=== PATIENT | male | born 1995 | race Caucasian/White ===

== ENCOUNTER 2017-09-13 23:58 | Emergency (ER) | payer MEDICAID, SELFPAY ==
[2017-09-14 00:17] VITALS: BP 122/76; PULSE 106; RESP 16; TEMP 36.8; O2SAT 99
[2017-09-14 00:21] VITALS: RESP 21
--- NOTE | 2017-09-14 00:27 | ED.GENADUL ---
Disposition Clinical Impression: Heroin overdose Disposition: HOME Condition: Stable Instructions: Narcotic Abuse (ED) Prescriptions: Naloxone HCl [Narcan Nasal [place]] 4 mg NS DIRECTED #2 spray Medical Decision Making - Medical Decision Making Given how quick patient came to after narcan and is at baseline now doubt he was actually in cardiac arrest. Will monitor to see if he requires additional narcan pt has remained stable not requiring any narcan, will d/c home. List of drug treatment programs given to him and family - Differential Diagnosis opiate overdose, respiratory arrest History of Present Illness - General Chief complaint: OD/Poison Stated complaint: CALEX Time Seen by Provider: 09/14/17 00:02 Source: patient Mode of arrival: EMS Limitations: no limitations - History of Present Illness Initial comments: 21 yo male with hx of substance abuse who states he was clean from opiates for months who comes in with overdose. He used IV heroin tonight and became unrepsonsive. HIs family found him and thought he was in cardiac arrest, was given narcan and he came to. He arrives caox4 and only complaint is mild central chest pain where compressions were done. bedside u/s shows normal cardiac function without pericardial effusion and no evidence of ptx on u/s as well. Denies other drug use MD Complaint: overdose Onset/Timin -: hour(s) Improves with: none Worsens with: none - Related Data Bupropion HCl [Wellbutrin Sr] 150 mg PO BID #60 tab-cap 09/12/17 Naloxone HCl [Narcan Nasal [place]] 4 mg NS DIRECTED #2 spray 09/14/17 Allergies Allergy/AdvReac Type Severity Reaction Status Date / Time No Known Allergies Allergy Unverified 09/14/17 00:21 Review of Systems Constitutional: denies: fever Respiratory: denies: shortness of breath Cardiovascular: denies: palpitations, dyspnea on exertion Gastrointestinal: denies: abdominal pain, nausea, vomiting Neurological: denies: headache Comment: All other systems reviewed and negative Past Medical History - Past Medical History Medical history: no medical history Surgical history: no surgical history - Social History Alcohol use: none Drug use: opiates, marijuana General Exam - General Limitations: no limitations General appearance: alert, in no apparent distress - Head Head exam: Present: atraumatic, normocephalic - Eye Eye exam: Present: normal apperance - ENT ENT exam: Present: mucous membranes moist - Neck Neck exam: Present: normal inspection - Respiratory Respiratory exam: Present: normal lung sounds bilaterally, chest wall tenderness. Absent: respiratory distress - Cardiovascular Cardiovascular Exam: Present: regular rate, normal rhythm, normal heart sounds - GI/Abdominal GI/Abdominal exam: Present: soft. Absent: distended, tenderness, guarding - Extremities Exam Extremities exam: Present: normal inspection. Absent: pedal edema, calf tenderness - Neurological Exam Neurological exam: Present: alert, oriented X3 - Psychiatric Psychiatric exam: Present: flat affect. Absent: homicidal ideation, suicidal ideation - Skin Skin exam: Present: warm Course Vital Signs - 24 hr 09/14/17 09/14/17 00:17 00:21 Temperature 98.2 F Pulse 106 H Respiratory 16 21 Rate Blood Pressure 122/76 Pulse Oximetry 99
--- NOTE | 2017-09-14 08:53 | PDOC.ERCMPRO ---
Care Management Progress Note 09/14-Matt's grandmother Kalyn Ibarra called this am requesting assistance with a referral to [place]. Kalyn stated she called [place] this am and was told that [facility] needed to send a referral. Explained to Kalyn that this CM would need to call [place] as this is not the normal procedure for referrals. Called [place] and spoke with Radha. Radha stated that she had spoken with Kalyn and explained to her that Matt needed to be screened by [facility] and that [facility] would assist with the referral. Called Kalyn back, left a general voicemail asking she call this CM back for update. No personal information left on voicemail.
--- NOTE | 2017-09-14 08:55 | CMPROGNOTE_ITS ---
Care Management Progress Note 09/14-Matt's grandmother Kalyn Ibarra called this am requesting assistance with a referral to [facility]. Kalyn stated she called [facility] this am and was told that [facility] needed to send a referral. Explained to Kalyn that this CM would need to call [facility] as this is not the normal procedure for referrals. Called [facility] and spoke with Radha. Radha stated that she had spoken with Kalyn and explained to her that Matt needed to be screened by [facility] and that [facility] would assist with the referral. Called Kalyn back, left a general voicemail asking she call this CM back for update. No personal information left on voicemail.
== END 2017-09-14 01:07 | disposition home or self-care (01) ==
PROVIDERS: Emergency Provider Emergency Medicine
DX: T40.1X1A Poisoning by heroin, accidental (unintentional), initial encounter (principal); F11.10 Opioid abuse, uncomplicated
CPT/HCPCS: 99284; 99283

== ENCOUNTER 2017-12-04 17:57 | Emergency (ER) | payer OTHER, SELFPAY ==
--- NOTE | 2017-12-04 18:05 | W.ED.GENAD ---
Discharge Plan Disposition Patient Disposition: HOME Condition: Improving Discharge Details Chief Complaint: EyeProblem Clinical Impression: Chemical exposure of eye Primary Care Provider: Maite Reich ED Provider: Zeus Berry Home Meds and New Rx's Prescriptions: No Action bupropion HCl [Wellbutrin SR] 150 mg tablet extended release 12 hr 150 mg PO BID Qty: 60 RF: 3 naloxone [Narcan] 4 MG spray,non-aerosol 4 mg NS DIRECTED Qty: 2 RF: 0 Discharge Instructions Instructions: Corneal Abrasion (ED) Additional Instructions: Return immediately to the emergency department if you have any new or significant worsening of eye pain, vision loss or change, or any further concerns. Otherwise call the ophthalmology office tomorrow for close follow-up and reassessment of your eye. Referrals: [facility] [Outside] - 1 day (Please call the office tomorrow morning for arrangement of follow-up.) Medical Decision Making Patient presenting to the emergency department with chief complaint of right eye pain due to cleansing liquid getting into his eye. Patient states he was opening up a bottle that was labeled as corrosive and when he did this approximately 2 small drops of liquid splashed into his right eye. Patient denies any other injury or trauma and states he does not wear contact lenses. Patient is holding his right eye making it fully difficult to examine initially but what is visualized briefly appears appropriate. Tetracaine was placed into right eye and Tim lens was inserted and saline fluid started to irrigate possible chemical exposure. Also due to pain patient was given 150 mg tramadol Did speak with poison control who gave recommendation for patient to receive copious irrigation and full assessment when appropriate. PH was checked in right eye after 3 L of irrigation lasting approximately 1 hour. PH still appeared closer to pH of 8 so further irrigation was performed. Patient reassessed at 4 L showed slight improvement of pH and reassessed after 5 L of irrigation and showed what appeared to be normal pH. Fluoroscein stain and slit lamp examination was performed and no dye uptake was noted in no acute abnormalities were noted on examination. Patient placed on erythromycin ointment and encouraged to return immediately for any new or worsening symptoms especially due to alkaline nature of chemical otherwise patient placed upon primary care list for [facility]. Patient stated no pain or discomfort and had normal visual acuity on examination. Given this I feel the patient is able to be safely discharged and he seems understanding to return for worsening symptoms. After discussion of diagnosis and plan of care patient has no further needs, questions, or concerns and states clear understanding to return to the emergency department for any worsening symptoms. HPI General Mode of arrival: ambulatory. Date/Time Provider Initiated Documentation: 12/04/17 18:04. Limitations to Documentation: no limitations. Information obtained by: patient and RN notes reviewed. History of Present Illness 22 year old M presents to the emergency department with the chief complaint of right eye injury, described as moderate, with intensity rated at 7. Quality is described as burning, and is localized to the right. Patient started experiencing this minute(s) (15) and it has been constant. Patient notes no other symptoms.. Patient did receive the following treatments prior to arrival, none Related Data Home Medications Medication Instructions Recorded Confirmed naloxone [Narcan Nasal [place]] 4 mg NS DIRECTED #2 spray 09/14/17 12/04/17 bupropion HCl SR 150 mg tablet,12 150 mg PO BID #60 tab-cap 11/05/17 12/04/17 hr sustained-release Previous Rx's Medication Instructions Recorded naloxone [Narcan Nasal [place]] 4 mg NS DIRECTED #2 spray 09/14/17 bupropion HCl SR 150 mg tablet,12 150 mg PO BID #60 tab-cap 11/05/17 hr sustained-release Allergies Allergy/AdvReac Type Severity Reaction Status Date / Time No Known Allergies Allergy Unverified 12/04/17 18:12 Review of Systems Constitutional Denies headache(s) Eyes Reports as per HPI, Reports blurry vision and Reports eye pain ENT Denies dizziness and Denies headache(s) Cardiovascular Denies syncope Neurologic Denies abnormal movements, Denies dizziness, Denies syncope and Denies headache(s) PFSH Family History Mother Depression Grandfather Depression Heart disease Grandfather No problems noted. Grandmother Hyperlipidemia Grandmother Personal history of malignant neoplasm Social History Smoking/Tobacco Use Status: Current every day tobacco type: cigarettes substance use type: marijuana seatbelt use: always Exam Const General: cooperative, healthy appearing and acute distress moderate; not respiratory Orientation: alert, awake and oriented x3 Limitations: mental status not altered HENMT Head: normal to inspection, normocephalic and atraumatic Ears: hearing grossly normal bilaterally General nose exam: external nose normal Face and sinus: normal facial exam Mouth: oral mucosae normal Eyes Visual Quick: normal visual quick by confrontation Alignment and Position: alignment normal Periorbital: periorbital findings normal Conjunctivae: conjunctivae normal Sclera: sclerae normal Cornea: corneas normal Pupils: PERRL EOM: EOM intact bilaterally Direct ophthalmoscopy: normal light reflex, consensual photophobia, anterior chamber normal and photophobia Neck Neck: normal visual inspection and full ROM Resp Effort & Inspection: normal respiratory effort, able to speak in complete sentences and no stridor
[2017-12-04 18:09] VITALS: BP 125/86; PULSE 83; RESP 20; TEMP 36.6; O2SAT 98
--- NOTE | 2017-12-04 18:09 | ED.GENADUL_ITS ---
Discharge Plan Disposition Patient Disposition: HOME Condition: Improving Discharge Details Chief Complaint: EyeProblem Clinical Impression: Chemical exposure of eye Primary Care Provider: Maite Reich ED Provider: Zeus Berry Home Meds and New Rx's Prescriptions: No Action bupropion HCl [Wellbutrin SR] 150 mg tablet extended release 12 hr 150 mg PO BID Qty: 60 RF: 3 naloxone [Narcan] 4 MG spray,non-aerosol 4 mg NS DIRECTED Qty: 2 RF: 0 Discharge Instructions Instructions: Corneal Abrasion (ED) Additional Instructions: Return immediately to the emergency department if you have any new or significant worsening of eye pain, vision loss or change, or any further concerns. Otherwise call the ophthalmology office tomorrow for close follow-up and reassessment of your eye. Referrals: [facility] [Outside] - 1 day (Please call the office tomorrow morning for arrangement of follow-up.) Medical Decision Making Patient presenting to the emergency department with chief complaint of right eye pain due to cleansing liquid getting into his eye. Patient states he was opening up a bottle that was labeled as corrosive and when he did this approximately 2 small drops of liquid splashed into his right eye. Patient denies any other injury or trauma and states he does not wear contact lenses. Patient is holding his right eye making it fully difficult to examine initially but what is visualized briefly appears appropriate. Tetracaine was placed into right eye and Tim lens was inserted and saline fluid started to irrigate possible chemical exposure. Also due to pain patient was given 150 mg tramadol Did speak with poison control who gave recommendation for patient to receive copious irrigation and full assessment when appropriate. PH was checked in right eye after 3 L of irrigation lasting approximately 1 hour. PH still appeared closer to pH of 8 so further irrigation was performed. Patient reassessed at 4 L showed slight improvement of pH and reassessed after 5 L of irrigation and showed what appeared to be normal pH. Fluoroscein stain and slit lamp examination was performed and no dye uptake was noted in no acute abnormalities were noted on examination. Patient placed on erythromycin ointment and encouraged to return immediately for any new or worsening symptoms especially due to alkaline nature of chemical otherwise patient placed upon primary care list for a [facility]. Patient stated no pain or discomfort and had normal visual acuity on examination. Given this I feel the patient is able to be safely discharged and he seems understanding to return for worsening symptoms. After discussion of diagnosis and plan of care patient has no further needs, questions, or concerns and states clear understanding to return to the emergency department for any worsening symptoms. HPI General Mode of arrival: ambulatory . Date/Time Provider Initiated Documentation: 12/04/17 18:04 . Limitations to Documentation: no limitations . Information obtained by: patient and RN notes reviewed . History of Present Illness 22 year old M presents to the emergency department with the chief complaint of right eye injury, described as moderate, with intensity rated at 7. Quality is described as burning, and is localized to the right. Patient started experiencing this minute(s) (15) and it has been constant. Patient notes no other symptoms.. Patient did receive the following treatments prior to arrival, none Related Data Home Medications Medication Instructions Recorded Confirmed naloxone [Narcan Nasal [place]] 4 mg NS DIRECTED #2 spray 09/14/17 12/04/17 bupropion HCl SR 150 mg tablet,12 150 mg PO BID #60 tab-cap 11/05/17 12/04/17 hr sustained-release Previous Rx's Medication Instructions Recorded naloxone [Narcan Nasal [place]] 4 mg NS DIRECTED #2 spray 09/14/17 bupropion HCl SR 150 mg tablet,12 150 mg PO BID #60 tab-cap 11/05/17 hr sustained-release Allergies Allergy/AdvReac Type Severity Reaction Status Date / Time No Known Allergies Allergy Unverified 12/04/17 18:12 Review of Systems Constitutional Denies headache(s) Eyes Reports as per HPI, Reports blurry vision and Reports eye pain ENT Denies dizziness and Denies headache(s) Cardiovascular Denies syncope Neurologic Denies abnormal movements, Denies dizziness, Denies syncope and Denies headache( s) PFSH Family History Mother Depression Grandfather Depression Heart disease Grandfather No problems noted. Grandmother Hyperlipidemia Grandmother Personal history of malignant neoplasm Social History Smoking/Tobacco Use Status: Current every day tobacco type: cigarettes substance use type: marijuana seatbelt use: always Exam Const General: cooperative, healthy appearing and acute distress moderate; not respiratory Orientation: alert, awake and oriented x3 Limitations: mental status not altered HENMT Head: normal to inspection, normocephalic and atraumatic Ears: hearing grossly normal bilaterally General nose exam: external nose normal Face and sinus: normal facial exam Mouth: oral mucosae normal Eyes Visual Quick: normal visual quick by confrontation Alignment and Position: alignment normal Periorbital: periorbital findings normal Conjunctivae: conjunctivae normal Sclera: sclerae normal Cornea: corneas normal Pupils: PERRL EOM: EOM intact bilaterally Direct ophthalmoscopy: normal light reflex, consensual photophobia, anterior chamber normal and photophobia Neck Neck: normal visual inspection and full ROM Resp Effort & Inspection: normal respiratory effort, able to speak in complete sentences and no stridor
[2017-12-04] MEDS: Tetracaine 0.5% 4 ML BTL (18:14)
[2017-12-04] MEDS: traMADol 50 MG TAB PO (18:18)
[2017-12-04] MEDS: Erythromycin Ophth Oint 3.5 GM TUBE OD (21:33)
--- NOTE | 2017-12-05 08:02 | CMPROGNOTE_ITS ---
Care Management Progress Note 12/05-Gadiel SONG requested assistance with a [facility] f/u on 12/05 for chemical exposure to right eye. Referral, demographics, and provider note faxed to Lucius wolf am.
== END 2017-12-04 21:42 | disposition home or self-care (01) ==
PROVIDERS: Emergency Provider Nurse Practitioner Family
DX: T26.61XA Corrosion of cornea and conjunctival sac, right eye, initial encounter (principal); X58.XXXA Exposure to other specified factors, initial encounter
CPT/HCPCS: 99284

== ENCOUNTER 2017-12-31 17:21 | Emergency (ER) | payer MEDICAID, SELFPAY ==
--- NOTE | 2017-12-31 17:27 | NUR.NOTE ---
pt to the lobby requesting help , when nurse went to get the pt he stated that he I dont need help, my friend does , she is in the car alyce got up and walked out of the lobby. a sober adult met him at the door and stated that the girl in the car no longer needed help. he stated that he was in charge of the pt and they all drove off Nursing Note:
== END 2017-12-31 17:30 | disposition left before discharge ==
LOC: ER 17:57
DX: Z53.21 Procedure and treatment not carried out due to patient leaving prior to being seen by health care provider (principal)

== ENCOUNTER 2018-02-13 15:38 | Outpatient (CLI) | payer MEDICAID, SELFPAY ==
[2018-02-13 17:16] LABS: ALT 255 U/L (12-78); AST 68 U/L (15-37); Albumin 4.7 g/dL (3.4-5.0); Alkaline Phosphatase 50 U/L (46-116); Anion Gap 9.6 mmol/L (3-11); BUN 17 mg/dL (7-18); CO2 28.4 mmol/L (21.0-32.0); CREATININE 1.14 mg/dL (0.70-1.30); Chloride 102 mmol/L (98-107); Glucose 118 mg/dL (70-100); Sodium 140 mmol/L (136-145); Total Protein 8.4 g/dL (6.4-8.2)
[2018-02-15 10:12] LABS: HIV-1/2 Ag & Ab Screen Negative (NEGAT)
[2018-02-15 15:10] LABS: Hepatitis A Antibody IgM Negative (NEGAT); Hepatitis B Core Antibody Negative (NEGAT); Hepatitis B surface Ag Negative (NEGAT); Hepatitis C Ab w Rflx HCV PCR Reactive (NEGAT)
[2018-02-15 15:35] LABS: Syphilis IgG Ab w/Reflex Negative (Negative)
== END 2018-02-13 15:58 ==
PROVIDERS: Visit Provider Nurse Practitioner Family
DX: F41.8 Other specified anxiety disorders (principal); Z11.4 Encounter for screening for human immunodeficiency virus [HIV]; Z20.5 Contact with and (suspected) exposure to viral hepatitis
CPT/HCPCS: 36415; 80053; 86704; 86709; 86803; 87340; 87389; 86780; 87522

== ENCOUNTER 2018-11-06 01:47 | Emergency (ER) | payer MEDICAID, SELFPAY ==
[2018-11-06 01:51] VITALS: BP 129/84; PULSE 93; RESP 18; TEMP 36.7; O2SAT 99
--- NOTE | 2018-11-06 02:09 | ED.GENADUL_ITS ---
Discharge Plan Disposition Patient Disposition: HOME Discharge Details Chief Complaint: RashLesion Clinical Impression: Acute abscess Primary Care Provider: Kaia Nolasco ED Provider: Gilson Alonso Home Meds and New Rx's Prescriptions: New sulfamethoxazole-trimethoprim [Bactrim DS] 800-160 mg tablet 1 tab PO BID Qty: 14 RF: 0 Continued bupropion HCl [Wellbutrin XL] 300 mg tablet extended release 24 hr 300 mg PO QAM Qty: 90 RF: 2 Narcan 4 mg/actuation spray,non-aerosol 4 mg NS DIRECTED Qty: 2 RF: 0 Discharge Instructions Instructions: Abscess (ED) Additional Instructions: Please take full course of antibiotic as prescribed. Please contact your primary care physician to arrange follow-up. Return to the ER for any worsening or new concerning symptoms. Referrals: Kaia Nolasco, [employer] [Primary Care Provider] - Medical Decision Making 23-year-old male IV drug user here with abscess right antecubital fossa. Bedside [id number] ultrasound of the area confirms superficial abscess. Questionable small hyperechoic foreign body in subcutaneous tissue. X-ray of the elbow was reviewed and interpreted by me: No foreign body. Topical let was applied to the right AC and incision and drainage performed without complication after verbal informed consent. Please see procedure note. Plan to cover the patient with Bactrim. Warm soaks were advised. Usual customary discharge instructions were provided. Patient understands importance of timely outpatient follow-up. HPI General Mode of arrival: ambulatory . Date/Time Provider Initiated Documentation: 11/06/18 02:08 . Limitations to Documentation: no limitations . Information obtained by: patient . HPI Narrative: 23-year-old male IV drug user, here with concern for abscess right antecubital fossa. Patient notes he injected heroin into the area about a week ago and subsequently developed worsening swelling. He denies associated redness. No associated fever. Area of swelling is tender to palpation. Related Data Home Medications Medication Instructions Recorded Confirmed bupropion HCl 300 mg 24 hr tablet, 300 mg PO QAM #90 tab 12/17/17 11/06/18 extended release naloxone 4 mg/actuation nasal spray 4 mg NS DIRECTED #2 spray 12/17/17 11/06/18 sulfamethoxazole-trimethoprim 1 tab PO BID #14 tab 11/06/18 [Bactrim DS] Previous Rx's Medication Instructions Recorded bupropion HCl 300 mg 24 hr tablet, 300 mg PO QAM #90 tab 12/17/17 extended release naloxone 4 mg/actuation nasal spray 4 mg NS DIRECTED #2 spray 12/17/17 sulfamethoxazole-trimethoprim 1 tab PO BID #14 tab 11/06/18 [Bactrim DS] Allergies Allergy/AdvReac Type Severity Reaction Status Date / Time No Known Allergies Allergy Verified 11/06/18 01:58 General Stated Complaint: RashLesion MARTÍN: 3 Review of Systems Constitutional Constitutional: Denies fever(s) Musculoskeletal Musculoskeletal: Denies arthralgias Integumentary/Breasts Skin/Breast: Reports as per HPI [facility] Medical History Accidental overdose of heroin (Inactive 09/24/17) Hepatitis C virus infection (Acute ~02/2018) Family History Mother Depression Grandfather Depression Heart disease Grandfather No problems noted. Grandmother Hyperlipidemia Grandmother Personal history of malignant neoplasm PANCREATIC Social History Smoking/Tobacco Use Status: Current every day Tobacco Type: cigarettes Alcohol Intake: current Alcohol Intake frequency: a few times a month Drug use: Daily Substance use type: marijuana Details: heroin and crack IV What type of physical activity do you participate in: none Seatbelt use: always Do you feel safe in your relationship?: Yes Exam Const General: cooperative and no acute distress HENMT Mouth: moist mucous membranes Eyes Conjunctivae: normal conjunctivae Sclera: normal sclerae Cardio Rate: regular rate and not tachycardic Rhythm: regular rhythm Skin Lesions: other (2 cm superficial abscess right antecubital fossa with mild erythema) Extrem General: no edema Right upper extremity: elbow/forearm Details: normal ROM, distal pulses intact and other (No joint swelling) Course Vital Signs Vital signs: Vital Signs Temperature 36.7 C 11/06/18 01:51 Pulse 93 H 11/06/18 01:51 Respiratory Rate 18 11/06/18 01:51 Blood Pressure 129/84 11/06/18 01:51 Pulse Oximetry 99 11/06/18 01:51 Temperature 36.7 C 11/06/18 01:51 Temperature Source Skin 11/06/18 01:51 Pulse 93 H 11/06/18 01:51 Respiratory Rate 18 11/06/18 01:51 Respiratory Effort 11/06/18 02:02 Blood Pressure 129/84 11/06/18 01:51 Blood Pressure Position Sitting 11/06/18 01:51 Pulse Oximetry 99 11/06/18 01:51 Oxygen Delivery Method Room Air 11/06/18 01:51 Oxygen Flow Rate 0 11/06/18 01:51 Pain Level 0 11/06/18 01:51 Procedures Abscess I/D Site: Upper Extremity Side (if applicable): Right Local Anesthetic: Other Anesthetic (LET) Amount of anesthesia used (mL): 2 Technique: Incised with #11 Blade Amount of fluid expressed (mL): 1 Irrigation: Yes Packing used?: None Complications: Other (none)
[2018-11-06] MEDS: Lidocaine/Epinephri/Tetracaine Topical Gel 3 ML TP (02:19)
[2018-11-06] MEDS: Sulfameth/Trimeth DS TAB 1 TAB PO (02:19)
--- NOTE | 2018-11-06 02:25 | DI.RAD_ITS ---
EXAM: XR ELBOW RT LIMITED INDICATION: abscess, iv drug use, ? fb, pain. COMPARISON: No exams were available for comparison TECHNIQUE: 2D digital imaging was performed. FINDINGS: No bone or joint abnormality is identified. There is soft tissue swelling about the elbow medially. No radiopaque foreign bodies are present. IMPRESSION: No acute fracture or dislocation. No radiopaque foreign body. Soft tissue swelling medially.
--- NOTE | 2018-11-06 02:54 | DI.VRAD_ITS ---
PROCEDURE INFORMATION: Exam: XR Right Elbow Exam date and time: 11/06/2018 2:09 AM Clinical history: 23 years old, male; Pain; Elbow; Right; Patient HX: Abscess, iv drug use, ? fb TECHNIQUE: Imaging protocol: XR Right elbow. Views: 1 or 2 views. COMPARISON: No relevant prior studies available. FINDINGS: Bones/joints: Bone mineralization is age-appropriate. There is no evidence of fracture. No evidence of dislocation. The joint spaces are adequately preserved; no significant degenerative narrowing and no bony erosion seen. Soft tissues: Edema and soft tissue swelling seen along the medial aspect of the right distal brachial region and at the elbow. No radiopaque foreign body present. IMPRESSION: 1. No acute osseous abnormality. 2. Edema and soft tissue swelling seen along the medial aspect of the right distal brachial region and at the elbow. Dictated and Authenticated by: Santos Mello MD. Ordering:ROSEANNA Riggins MD
== END 2018-11-06 03:12 | disposition home or self-care (01) ==
PROVIDERS: Emergency Provider Student in an Organized Health Care Education/Training Program; PCP Nurse Practitioner Family
DX: L02.415 Cutaneous abscess of right lower limb (principal)
CPT/HCPCS: 10060; 99283; 73070

== ENCOUNTER 2019-04-03 22:30 | Outpatient (REF) | payer MEDICAID, SELFPAY ==
[2019-04-03 21:10] LABS: Prothrombin Time 10.3 sec (9.3-11.0)
[2019-04-03 21:17] LABS: HCT 47.4 % (40.0-50.0); HGB 16.1 g/dL (13.5-17.5); Mean Corpuscular Hemoglobin 31.2 pg (27.0-33.0); Mean Corpuscular Volume 91.9 fL (80-95); Mean Platelet Volume 11.2 fL (8.0-11.0); Platelet Count 326 x1000/uL (130-400); RBC 5.16 m/cumm (4.50-6.00); RBC Distribution Width 14.4 % (11.8-14.1); White Blood Cell Count 10.28 k/cumm (4.4-10.8)
[2019-04-03 21:28] LABS: ALT 134 U/L (16-63); AST 68 U/L (15-37); Albumin 4.6 g/dL (3.4-5.0); Alkaline Phosphatase 58 U/L (46-116); BUN 19 mg/dL (7-18); Bilirubin, Total 0.6 mg/dL (0.2-1.0); CREATININE 0.84 mg/dL (0.70-1.30); Calcium 9.8 mg/dL (8.5-10.1); Chloride 102 mmol/L (98-107); Glucose 88 mg/dL (74-106); Potassium 4.2 mmol/L (3.5-5.1); Sodium 140 mmol/L (136-145); Total Protein 8.1 g/dL (6.4-8.2)
[2019-04-07 09:55] LABS: HBs Antibody, Quant <3.1 mIU/mL (See Note); Hepatitis B Surface Ab Negative (See Note)
[2019-04-07 11:48] LABS: Hep A Total Ab w Rflx IgM Negative (Negative); Hepatitis C Ab w Rflx HCV PCR Reactive (Negative)
== END 2019-04-03 22:50 ==
LOC: NCHCN 22:30
PROVIDERS: Visit Provider Nurse Practitioner Family
DX: Z11.59 Encounter for screening for other viral diseases (principal); Z87.898 Personal history of other specified conditions
CPT/HCPCS: 80053; 85027; 86706; 86709; 86803; 85610; 87522

== ENCOUNTER 2019-06-05 15:43 | Emergency (ER) | payer MEDICAID, SELFPAY ==
[2019-06-05 15:47] VITALS: BP 138/75; PULSE 67; RESP 14; TEMP 36.8; O2SAT 95
--- NOTE | 2019-06-05 16:22 | ED.GENADUL_ITS ---
Discharge Plan Disposition Patient Disposition: HOME Condition: Stable Discharge Details Chief Complaint: Nausea/Vomit/Diar Clinical Impression: Viral gastroenteritis Primary Care Provider: Venice Ortiz ED Provider: Lien Espitia Home Meds and New Rx's Prescriptions: No Action Narcan 4 mg/actuation spray,non-aerosol 4 mg NS DIRECTED Qty: 2 RF: 0 Vivitrol 380 mg Suspension,Extended Rel Recon See Rx Instructions .ROUTE .COMPLEX RF: 0 Discharge Instructions Instructions: Gastroenteritis (ED) Additional Instructions: Drink plenty of fluids. Rest activities as tolerated. Observe for any signs of dehydration. Observe for any signs of return of symptoms. Limit dairy, acidic or spicy foods initially as discussed. Wash hands and any recently touched items in your home including bathrooms to avoid any spread of germs. Return for any worsening, concerning or alarming symptoms as discussed Stand Alone Forms: Work Release Medical Decision Making Is a 23-year-old patient presenting to the emergency room reporting resolved nausea vomiting diarrhea and abdominal pain. Patient reports 2 days of nausea vomiting and diarrhea. Reports he awoke in the morning with symptoms. Patient reports vomited approximately 5 times and had about 5 episodes of diarrhea on day 1, improved to approximately 3 times daily on day 2 and awoke this morning vomited x1 and symptoms fully resolved. Abdominal pain resolved yesterday. Patient denies any blood in bowel movements or in vomitus. Denies headache or dizziness. Patient reports he has been able to eat and drink throughout the day today. Patient is urinating normal amounts. Does not feel dehydrated at this time. Patient is seeking a return to work note as he did not feel comfortable working with the symptoms. Employer is requesting evaluation prior to return. Patient works in a distribution center. Patient denies any upper respiratory symptoms, cough, shortness of breath, wheezing. Patient's vital signs reviewed and stable. Patient's physical exam at this time is entirely benign. Patient has no persistent abdominal symptoms. Does not feel he needs labs or IV at this time. Feels comfortable discharge home with work note alone. Patient encouraged return for any worsening or concerns. Patient reports his un derstanding. The patient was stable and requested discharge. Prior to discharge, my usual and customary return precautions were reviewed with the patient - this included follow-up instructions and reasons to return to the Emergency Department if conditions worsens, does not improve as expected, or other new concerns arise. HPI General Date/Time Provider Initiated Documentation: 06/05/19 15:58 . HPI Narrative: This is a 23-year-old very pleasant patient presenting to the emergency room for complaints of nausea vomiting and diarrhea which began 2 mornings ago. Patient reports he awoke abruptly with vomiting, describes crampy abdominal discomfort which is intermittent. Patient reports diarrhea associated. Patient reports approximately 5 episodes of vomiting and diarrhea on day 1, was able to sleep on day 1. Awoke somewhat improved reports approximately 3 episodes of vomiting and diarrhea on day 2. This morning patient reports a single episode of vomiting after which patient has had no persistent symptoms throughout the day. Patient reports abdominal pain resolved yesterday. Patient denies fevers or chills. Denies headache or dizziness. Patient has been able to eat and drink without vomiting throughout the course of the day. Patient does report he feels hydra yanna at this time. Reports normal amounts of urine output. Patient denies chest pain, difficulty breathing or shortness of breath or wheezing. Patient is a smoker. Patient reports he is feeling well at this time. Specifically he is seeking a work note to return to work as he works at a distribution center. His employers would not allow him to work without return to work note. Denies any other concerns or complaints. Patient does report a history of foodborne illness in the past and this seems similar. No other known ill contacts. Related Data Home Medications Medication Instructions Recorded Confirmed naloxone 4 mg/actuation nasal spray 4 mg NS DIRECTED #2 spray 02/13/19 06/05/19 naltrexone microspheres [Vivitrol] See Rx Instructions .ROUTE .COMPLEX 06/05/19 06/05/19 Previous Rx's Medication Instructions Recorded naloxone 4 mg/actuation nasal spray 4 mg NS DIRECTED #2 spray 02/13/19 Allergies Allergy/AdvReac Type Severity Reaction Status Date / Time No Known Allergies Allergy Verified 06/05/19 15:50 General Stated Complaint: Nausea/Vomit/Diar MARTÍN: 3 Review of Systems All systems reviewed & are unremarkable except as noted in HPI and below Constitutional Constitutional: Denies chills, Denies fatigue, Denies fever(s), Denies headache(s) and Denies malaise ENT Ears, Nose, Mouth, and Throat: Denies vertigo, Denies dizziness and Denies headache(s) Cardiovascular Cardiovascular: Denies syncope Gastrointestinal Gastrointestinal: Reports abdominal pain (Resolved), Denies hematochezia, Denies constipation, Reports diarrhea (Resolved), Reports nausea (Resolved) and Reports vomiting (Resolved) Genitourinary Genitourinary: Denies hematuria, Denies dysuria, Denies urinary frequency, Denies urinary hesitancy and Denies urinary urgency Neurologic Neurologic: Denies vertigo, Denies dizziness, Denies syncope and Denies headache(s) Endocrine Endocrine: Denies fatigue [facility] Medical History Accidental overdose of heroin (Acute 09/24/17) Hepatitis C virus infection (Acute ~02/2018) Tooth infection (Acute) Social History Smoking/Tobacco Use Status: Current every day Tobacco Type: cigarettes Alcohol Intake: current Alcohol Intake frequency: a few times a month Drug use: Daily 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 Well hydrated. Alert and oriented. HENMT: Head nomocephalic, normal to inspection. Atraumatic. Hearing grossly normal. TMs appear normal bilaterally, no pharyngeal erythema. EYES: General normal appearance. Alignment normal. Eyelids normal. Conjunctiva normal. NECK: Normal visual inspection. FROM. Trachea midline. No Midline tenderness. No cervical lymphadenopathy present CHEST: Normal insepection of the chest. RESP: Normal respiratory effort. Speaking full sentences. No cough. No audible wheezing. No retractions. CARDIO: No JVD. No murmur. Regular rate and rhythm GI: Bowel sounds present in all 4 quadrants. Abdomen is soft, nontender. No peritoneal signs, rebound or guarding MUSCULOSKELETAL: Normal Gait. FROM of all extremities. SKIN: Normal. Dry. No rashes. NEURO: Alert and awake. Speech clear. PSYCH: Normal affect. Cooperative. Course Vital Signs Vital signs: Vital Signs Temperature 36.8 C 06/05/19 15:47 Pulse 67 06/05/19 15:47 Respiratory Rate 14 06/05/19 15:47 Blood Pressure 138/75 06/05/19 15:47 Pulse Oximetry 95 06/05/19 15:47 Temperature 36.8 C 06/05/19 15:47 Temperature Source Skin 06/05/19 15:47 Pulse 67 06/05/19 15:47 Respiratory Rate 14 06/05/19 15:47 Respiratory Effort Non-Labored 06/05/19 15:51 Blood Pressure 138/75 06/05/19 15:47 Blood Pressure Position Supine 06/05/19 15:47 Pulse Oximetry 95 06/05/19 15:47 Oxygen Delivery Method Room Air 06/05/19 15:47 Oxygen Flow Rate 0 06/05/19 15:47 Pain Level 3 06/05/19 15:47
== END 2019-06-05 16:20 | disposition home or self-care (01) ==
PROVIDERS: Emergency Provider Physician Assistant; PCP Nurse Practitioner Family
DX: A08.4 Viral intestinal infection, unspecified (principal)
CPT/HCPCS: 99281

== ENCOUNTER 2019-07-11 10:57 | Outpatient (REF) | payer MEDICAID, SELFPAY ==
[2019-07-11 21:38] LABS: ALT 97 U/L (16-63); AST 39 U/L (15-37); Albumin 4.3 g/dL (3.4-5.0); Alkaline Phosphatase 48 U/L (46-116); Anion Gap 10.9 mmol/L (3-11); BUN 18 mg/dL (7-18); Bilirubin, Total 0.8 mg/dL (0.2-1.0); CO2 25.1 mmol/L (21.0-32.0); CREATININE 1.34 mg/dL (0.70-1.30); Calcium 9.7 mg/dL (8.5-10.1); Chloride 103 mmol/L (98-107); Glucose 168 mg/dL (74-106); Potassium 4.2 mmol/L (3.5-5.1); Sodium 139 mmol/L (136-145); Total Protein 7.9 g/dL (6.4-8.2)
[2019-07-14 10:58] LABS: HIV-1/2 Ag & Ab Screen Negative (Negative)
== END 2019-07-11 11:17 ==
LOC: NCHCN 10:57
PROVIDERS: PCP Nurse Practitioner Family; Visit Provider Nurse Practitioner Family
DX: B19.20 Unspecified viral hepatitis C without hepatic coma (principal)
CPT/HCPCS: 80053; 87389; 87521

== ENCOUNTER 2019-12-02 19:39 | Outpatient (REF) | payer MEDICAID, SELFPAY ==
[2019-12-09 12:24] LABS: Hepatitis B Surface Ag Negative (Negative)
== END 2019-12-02 19:59 ==
LOC: NCHCN 19:39
PROVIDERS: PCP Nurse Practitioner Family; Visit Provider Family Medicine
DX: B19.20 Unspecified viral hepatitis C without hepatic coma (principal); N28.9 Disorder of kidney and ureter, unspecified
CPT/HCPCS: 87340; 87522; 86704

== ENCOUNTER 2020-02-10 15:25 | Outpatient (REF) | payer MEDICAID, SELFPAY ==
[2020-02-10 20:00] LABS: HCT 48.4 % (40.0-50.0); HGB 16.2 g/dL (13.5-17.5); MCHC 33.5 % (32.0-36.0); MCV 95.5 fL (80-95); MPV 11.5 fL (8.0-11.0); Platelet Count 312 10^3/uL (130-400); RBC 5.07 10^6/uL (4.36-5.78); RDW 13.6 % (11.8-14.1); RDW-SD 48.1 fL; WBC 9.15 10^3/uL (4.4-10.8)
[2020-02-10 21:28] LABS: ALT 107 U/L (16-63); AST 6 U/L (15-37); Albumin 4.7 g/dL (3.4-5.0); Alkaline Phosphatase 37 U/L (46-116); Anion Gap 10.2 mmol/L (3-11); BUN 16 mg/dL (7-18); Bilirubin, Total 0.7 mg/dL (0.2-1.0); CO2 25.8 mmol/L (21.0-32.0); CREATININE 1.02 mg/dL (0.70-1.30); Calcium 9.8 mg/dL (8.5-10.1); Chloride 105 mmol/L (98-107); Glucose 82 mg/dL (74-106); Potassium 4.4 mmol/L (3.5-5.1); Sodium 141 mmol/L (136-145); TSH (W/Ref FT4) 0.67 uIU/mL (0.36-3.74); Total Protein 7.8 g/dL (6.4-8.2)
[2020-02-12 09:24] LABS: Hepatitis B Surface Ag Negative (Negative)
[2020-02-12 10:34] LABS: HIV-1/2 Ag & Ab Screen Negative (Negative)
[2020-02-12 14:08] LABS: HCV RNA Qualitative Detected (Undetected)
[2020-02-13 10:34] LABS: ALT 88 U/L (7-55); ActiTest Grade A1-A2; ActiTest Interpretation minimal activity; ActiTest Score 0.45; Alpha-2-Macroglobulin 158 mg/dL (100 - 280); Apoliprotein A1 169 mg/dL (>=120); Bilirubin, Total 0.7 mg/dL (<=1.2); FibroTest Interpretation no fibrosis; FibroTest Score 0.13; FibroTest Stage F0; GGT 41 U/L (8 - 61); Haptoglobin 67 mg/dL (30 - 200)
== END 2020-02-10 15:45 ==
LOC: NCHCN 15:25
PROVIDERS: PCP Nurse Practitioner Family; Visit Provider Family Medicine
DX: B19.20 Unspecified viral hepatitis C without hepatic coma (principal); R63.4 Abnormal weight loss; N28.89 Other specified disorders of kidney and ureter; M54.5 Low back pain; G89.29 Other chronic pain
CPT/HCPCS: 80053; 81596; 85027; 87340; 87389; 87522; 84443

== ENCOUNTER 2020-03-16 17:47 | Emergency (ER) | payer MEDICAID, SELFPAY ==
[2020-03-16 17:57] VITALS: BP 130/72; PULSE 78; RESP 18; TEMP 36.6; O2SAT 99
[2020-03-16 18:42] LABS: Bilirubin Negative (Negative); Blood Negative (Negative); Clarity Clear (Clear); Glucose Negative (Negative); Ketones Negative (Negative); Leukocyte Esterase Negative (Negative); Nitrite Negative (Negative); Specific Gravity 1.025 (1.005-1.025); Urobilinogen 0.2 EU/dL (Up TO 0.2); pH 7.5 (5-8)
[2020-03-16 18:46] LABS: ALT 39 U/L (16-63); AST 19 U/L (15-37); Albumin 4.5 g/dL (3.4-5.0); Alkaline Phosphatase 43 U/L (46-116); Anion Gap 8.6 mmol/L (3-11); BUN 16 mg/dL (7-18); Bilirubin, Total 0.7 mg/dL (0.2-1.0); CO2 27.4 mmol/L (21.0-32.0); CREATININE 0.9 mg/dL (0.70-1.30); Calcium 8.9 mg/dL (8.5-10.1); Chloride 102 mmol/L (98-107); Glucose 92 mg/dL (74-106); Lipase 63 U/L (73-393); Potassium 3.3 mmol/L (3.5-5.1); Sodium 138 mmol/L (136-145)
[2020-03-16 18:47] LABS: Abs Immature Grans 0.04 10^3/uL (0.0-0.06); Absolute Lymphocyte Count 4.07 10^3/uL (1.2-3.4); Absolute Neutrophil Count 8.12 10^3/uL (1.2-6.7); Basophils % 0.4; Eosinophils % 2.9; HCT 43.8 % (40.0-50.0); HGB 15.2 g/dL (13.5-17.5); Immature Grans % 0.3; MCH 32.3 pg (27.0-33.0); MCHC 34.7 % (32.0-36.0); MCV 93.2 fL (80-95); MPV 10.9 fL (8.0-11.0); Monocytes % 6.6; Neutrophils % 59.8; Nucleated RBC 0 %; Platelet Count 286 10^3/uL (130-400); RDW 12.7 % (11.8-14.1); RDW-SD 43.8 fL; WBC 13.58 10^3/uL (4.4-10.8)
[2020-03-16 18:48] LABS: Absolute Basophil Count 0.05 10^3/uL (0.0-0.2); Absolute Eosinophil Count 0.39 10^3/uL (0.0-0.7)
[2020-03-16 19:04] VITALS: BP 126/70; PULSE 68; RESP 16; O2SAT 99
--- NOTE | 2020-03-16 23:33 | ED.GENADUL_ITS ---
Discharge Plan Disposition Patient Disposition: HOME Condition: Stable Discharge Details Clinical Impression: Abdominal pain, Leukocytosis Primary Care Provider: Galen Clemens ED Provider: Jovon Kaiser Home Meds and New Rx's Prescriptions: Continued Narcan 4 mg/actuation spray,non-aerosol 4 mg NS DIRECTED Qty: 2 RF: 0 Vivitrol 380 mg Suspension,Extended Rel Recon See Rx Instructions .ROUTE .COMPLEX RF: 0 Mavyret 100-40 mg tablet 3 tab PO DAILY RF: 0 Discharge Instructions Instructions: Leukocytosis (ED), Abdominal Pain (ED) Additional Instructions: At this time your laboratory values did not reveal any obvious emergent process. Your white count was elevated but this is rather nonspecific. CT was offered, subsequently declined, and I believe this to be a reasonable plan. Please watch for new or worsening symptoms and return to the ER for any concerns. Lastly, I would like you to contact your primary care provider tomorrow to make them aware of your ER visit. Further outpatient evaluation may be required for a more concrete diagnosis. Discharge Data Discharge Date/Time-TO BE ENTERED AT DEPARTURE: 03/16/20 21:55 Medical Decision Making 24-year-old male presents with left-sided abdominal pain-pressure with lifting something heavy in his right arm. This has been going on roughly 1 week, questions if there is an association with his new medication Mavyret. Otherwise has no concerns or complaints, no other symptoms. Currently he is asymptomatic. Clinically his examination is unremarkable. Given his symptoms are with lifting or positional, raises the question of hernia and/or musculoskeletal. Given his past medical history and initiating any medication, I do believe obtaining routine laboratory values including LFTs, urinalysis, lipase are all reasonable. He does report occasionally drinking alcohol but not on a regular basis. After reviewing the medication, Mavyret, I do not see a likely clear link between his new medication and symptoms. Vital signs remained unremarkable. Laboratory values reveal a mild nonspecific leukocytosis of 13.58. Creatinine 0.9 with estimated GFR greater than 60. Total bilirubin 0.7 AST 19 ALT 39 alk phosphatase 43, albumin 4.5 lipase 63. Urinalysis unremarkable. Discussed laboratory values with patient. He remains asymptomatic. Given his symptoms, nonspecific leukocytosis, CT imaging was offered for further evaluation of the symptoms but he did decline. Again, he is asymptomatic, I am unable to reproduce any abdominal discomfort whatsoever. He was given return precautions and we discussed the importance of follow-up with his primary care provider, making his symptoms be known, with the understanding that additional work-up may be indicated. Patient has no additional questions or concerns and is comfortable with this plan. Medical Records Medical records reviewed: Yes I reviewed the patient's medical records. Lab Data Lab results reviewed: Yes I reviewed the patient's lab results. Labs: Laboratory Tests Range/Units 03/16/20 03/16/20 03/16/20 18:10 18:20 18:20 WBC (4.4-10.8) 10^3/uL 13.58 H RBC (4.36-5.78) 10^6/uL 4.70 Hgb (13.5-17.5) g/dL 15.2 Hct (40.0-50.0) % 43.8 MCV (80-95) fL 93.2 MCH (27.0-33.0) pg 32.3 MCHC (32.0-36.0) % 34.7 RDW (11.8-14.1) % 12.7 Plt Count (130-400) 10^3/uL 286 MPV (8.0-11.0) fL 10.9 Immature Gran % 0.3 Neutrophils % 59.8 Lymphocytes % 30.0 Monocytes % 6.6 Eosinophils % 2.9 Basophils % 0.4 Nucleated RBC % % 0 Absolute Neutrophils (1.2-6.7) 10^3/uL 8.12 H Absolute Lymphocytes (1.2-3.4) 10^3/uL 4.07 H Absolute Monocytes (0.1-0.8) 10^3/uL 0.90 H Absolute Eosinophils (0.0-0.7) 10^3/uL 0.39 Absolute Basophils (0.0-0.2) 10^3/uL 0.05 Sodium (136-145) mmol/L 138 Potassium (3.5-5.1) mmol/L 3.3 L Chloride (98-107) mmol/L 102 Carbon Dioxide (21.0-32.0) mmol/L 27.4 Anion Gap (3-11) mmol/L 8.6 BUN (7-18) mg/dL 16 Creatinine (0.70-1.30) mg/dL 0.9 Estimated GFR/1.73 m2 (mL/min/1.73m2) >= 60.00 Glucose (74-106) mg/dL 92 Calcium (8.5-10.1) mg/dL 8.9 Total Bilirubin (0.2-1.0) mg/dL 0.7 AST (15-37) U/L 19 ALT (16-63) U/L 39 Alkaline Phosphatase (46-116) U/L 43 L Total Protein (6.4-8.2) g/dL 8.0 Albumin (3.4-5.0) g/dL 4.5 Lipase (73-393) U/L 63 Urine Color (Yellow) Yellow Urine Clarity (Clear) Clear Urine pH (5-8) 7.5 Ur Specific [place] (1.005-1.025) 1.025 Urine Protein (Negative) mg/dL Negative Urine Ketones (Negative) mg/dL Negative Urine Blood (Negative) Negative Urine Nitrite (Negative) Negative Urine Bilirubin (Negative) Negative Urine Urobilinogen (Up TO 0.2) EU/dL 0.2 Ur Leukocyte Esterase (Negative) Negative Urine Glucose (Negative) mg/dL Negative HPI General Mode of arrival: ambulatory . Date/Time Provider Initiated Documentation: 03/16/20 18:07 . Limitations to Documentation: no limitations . Information obtained by: patient . HPI Narrative: This is a 24-year-old gentleman, past medical history that includes IV drug use, has been clean for over a year and now takes Vivitrol. He states that he was recently diagnosed with hepatitis C and placed on Mavret daily, beginning last Sunday. Since that time he has noticed left-sided abdominal discomfort. He reports that the pain is really only present if he is lifting something heavy with his right arm, he does not get symptoms if he lifts anything with his left arm. There is no discomfort with rotation of his trunk. He feels as though there is a pressure, discomfort, or lump on his left abdomen only with that type of movement or if he is sitting and leans over forward. He is concerned is that it could be related to his recent medication change. He otherwise has no additional concerns or complaints. He denies recent illness or trauma. He denies fever, chest pain, shortness of breath, back pain, nausea, vomiting, diarrhea, constipation, dysuria, pain in his penis or testicles. He is scheduled to be seen by his primary care provider later this month but has not brought up his concern to them yet. He is currently asymptomatic. Related Data Home Medications Medication Instructions Recorded Confirmed naloxone 4 mg/actuation nasal spray 4 mg NS DIRECTED #2 spray 02/13/19 03/16/20 Vivitrol See Rx Instructions .ROUTE .COMPLEX 06/05/19 03/16/20 Mavyret 3 tab PO DAILY 03/16/20 03/16/20 Previous Rx's Medication Instructions Recorded naloxone 4 mg/actuation nasal spray 4 mg NS DIRECTED #2 spray 02/13/19 Allergies Allergy/AdvReac Type Severity Reaction Status Date / Time No Known Allergies Allergy Verified 03/16/20 18:01 General Stated Complaint: Abd Prob MARTÍN: 3 Review of Systems Constitutional Constitutional: Denies fever(s) ENT Ears, Nose, Mouth, and Throat: Denies neck pain Cardiovascular Cardiovascular: Denies chest pain and Denies dyspnea Respiratory Respiratory: Denies cough and Denies dyspnea Gastrointestinal Gastrointestinal: Reports abdominal pain, Denies nausea and Denies vomiting Genitourinary Genitourinary: Denies hematuria and Denies dysuria Musculoskeletal Musculoskeletal: Denies back pain and Denies neck pain Integumentary/Breasts Skin/Breast: Denies erythema [facility] Medical History Accidental overdose of heroin (09/24/17) Hepatitis C virus infection (~02/2018) Tooth infection Family History Mother Depression Grandfather Depression Heart disease Grandfather No problems noted. 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) Caregiver/Support person: Yes (states mom (John) his strongest support person) Household members: family Current gender identity: male What type of physical activity do you participate in: none Seatbelt use: always Do you feel safe at home: Yes Do you feel safe in your relationship?: Yes Additional Social history: Narcan available at house Exam Const General: cooperative, healthy appearing, comfortable and no acute distress Orientation: alert, awake and oriented x3 HENMT Head: normal to inspection, normocephalic and atraumatic Face and sinus: normal facial exam Mouth: moist mucous membranes Eyes General: appearance normal, both eyes and all related structures Conjunctivae: conjunctivae normal Sclera: sclerae normal Neck Neck: normal visual inspection, full ROM, trachea midline and supple Resp Effort & Inspection: normal respiratory effort and able to speak in complete sentences Auscultation: clear to auscultation bilaterally Cardio Rate: regular rate Rhythm: regular rhythm GI Inspection: normal to inspection Palpation: soft, no hepatosplenomegaly, not firm, no guarding, no hernias, no masses, no pulsatile masses, not rigid, no splenomegaly, nontender and other (No symptoms with bearing down or increasing intra-abdominal pressure) Auscultation: normal bowel sounds Back/Spine/Pelvis Back: No back tenderness Skin General skin exam: no rashes or lesions noted Neuro General: patient alert, patient awake, moves all extremities and no focal motor deficits Cognition: normal cognition Speech: speech normal Gait: normal gait Sensory Exam: no sensory deficits noted Psych Appearance: grossly normal Mental Status: mental status grossly normal Course Vital Signs Vital signs: Vital Signs Temperature 36.6 C 03/16/20 17:57 Pulse 78 03/16/20 17:57 Respiratory Rate 18 03/16/20 17:57 Blood Pressure 130/72 03/16/20 17:57 Pulse Oximetry 99 03/16/20 17:57 Temperature 36.6 C 03/16/20 17:57 Temperature Source Skin 03/16/20 17:57 Pulse 68 03/16/20 19:04 Respiratory Rate 16 03/16/20 19:04 Respiratory Effort Non-Labored 03/16/20 18:00 Blood Pressure 126/70 03/16/20 19:04 Blood Pressure Position Sitting 03/16/20 17:57 Pulse Oximetry 99 03/16/20 19:04 Oxygen Delivery Method Room Air 03/16/20 19:04 Oxygen Flow Rate 0 03/16/20 19:04 Pain Level 0 03/16/20 19:04 Lab/Test Results Lab/Test Results: Laboratory Tests Range/Units 03/16/20 03/16/2003/16/21 18:10 18:20 18:20 WBC (4.4-10.8) 10^3/uL 13.58 H RBC (4.36-5.78) 10^6/uL 4.70 Hgb (13.5-17.5) g/dL 15.2 Hct (40.0-50.0) % 43.8 MCV (80-95) fL 93.2 MCH (27.0-33.0) pg 32.3 MCHC (32.0-36.0) % 34.7 RDW (11.8-14.1) % 12.7 Plt Count (130-400) 10^3/uL 286 MPV (8.0-11.0) fL 10.9 Immature Gran % 0.3 Neutrophils % 59.8 Lymphocytes % 30.0 Monocytes % 6.6 Eosinophils % 2.9 Basophils % 0.4 Nucleated RBC % % 0 Absolute Neutrophils (1.2-6.7) 10^3/uL 8.12 H Absolute Lymphocytes (1.2-3.4) 10^3/uL 4.07 H Absolute Monocytes (0.1-0.8) 10^3/uL 0.90 H Absolute Eosinophils (0.0-0.7) 10^3/uL 0.39 Absolute Basophils (0.0-0.2) 10^3/uL 0.05 Sodium (136-145) mmol/L 138 Potassium (3.5-5.1) mmol/L 3.3 L Chloride (98-107) mmol/L 102 Carbon Dioxide (21.0-32.0) mmol/L 27.4 Anion Gap (3-11) mmol/L 8.6 BUN (7-18) mg/dL 16 Creatinine (0.70-1.30) mg/dL 0.9 Estimated GFR/1.73 m2 (mL/min/1.73m2) >= 60.00 Glucose (74-106) mg/dL 92 Calcium (8.5-10.1) mg/dL 8.9 Total Bilirubin (0.2-1.0) mg/dL 0.7 AST (15-37) U/L 19 ALT (16-63) U/L 39 Alkaline Phosphatase (46-116) U/L 43 L Total Protein (6.4-8.2) g/dL 8.0 Albumin (3.4-5.0) g/dL 4.5 Lipase (73-393) U/L 63 Urine Color (Yellow) Yellow Urine Clarity (Clear) Clear Urine pH (5-8) 7.5 Ur Specific [place] (1.005-1.025) 1.025 Urine Protein (Negative) mg/dL Negative Urine Ketones (Negative) mg/dL Negative Urine Blood (Negative) Negative Urine Nitrite (Negative) Negative Urine Bilirubin (Negative) Negative Urine Urobilinogen (Up TO 0.2) EU/dL 0.2 Ur Leukocyte Esterase (Negative) Negative Urine Glucose (Negative) mg/dL Negative
== END 2020-03-16 21:55 | disposition home or self-care (01) ==
PROVIDERS: Emergency Provider Physician Assistant; PCP Family Medicine
DX: R10.32 Left lower quadrant pain (principal); D72.829 Elevated white blood cell count, unspecified
CPT/HCPCS: 36415; 80053; 83690; 99283; 81003; 85025

== ENCOUNTER 2020-04-05 16:17 | Outpatient (REF) | payer MEDICAID, SELFPAY ==
[2020-04-05 15:52] LABS: Abs Immature Grans 0.01 10^3/uL (0.0-0.06); Absolute Basophil Count 0.05 10^3/uL (0.0-0.2); Absolute Eosinophil Count 0.32 10^3/uL (0.0-0.7); Absolute Lymphocyte Count 3.07 10^3/uL (1.2-3.4); Absolute Monocyte Count 0.63 10^3/uL (0.1-0.8); Absolute Neutrophil Count 3.91 10^3/uL (1.2-6.7); Basophils % 0.6; HCT 46.7 % (40.0-50.0); HGB 15.5 g/dL (13.5-17.5); Immature Grans % 0.1; Lymphocytes % 38.4; MCH 31.9 pg (27.0-33.0); MCHC 33.2 % (32.0-36.0); MCV 96.1 fL (80-95); MPV 11.8 fL (8.0-11.0); Monocytes % 7.9; Nucleated RBC 0 %; Platelet Count 251 10^3/uL (130-400); RBC 4.86 10^6/uL (4.36-5.78); RDW 12.5 % (11.8-14.1); RDW-SD 45.1 fL; WBC 7.99 10^3/uL (4.4-10.8)
[2020-04-05 18:16] LABS: ALT 25 U/L (16-63); AST 18 U/L (15-37); Albumin 4.1 g/dL (3.4-5.0); Alkaline Phosphatase 43 U/L (46-116); Anion Gap 8.6 mmol/L (3-11); BUN 18 mg/dL (7-18); Bilirubin, Total 0.4 mg/dL (0.2-1.0); CO2 28.4 mmol/L (21.0-32.0); CREATININE 0.9 mg/dL (0.70-1.30); Calcium 9.2 mg/dL (8.5-10.1); Chloride 105 mmol/L (98-107); Glucose 90 mg/dL (74-106); Potassium 4.3 mmol/L (3.5-5.1); Sodium 142 mmol/L (136-145); Total Protein 7.2 g/dL (6.4-8.2)
[2020-04-07 14:03] LABS: HCV RNA Qualitative Undetected (Undetected)
== END 2020-04-05 16:18 | disposition home or self-care (01) ==
LOC: NCHCN 16:17
PROVIDERS: PCP Family Medicine; Visit Provider Family Medicine
DX: B19.20 Unspecified viral hepatitis C without hepatic coma (principal); D72.829 Elevated white blood cell count, unspecified
CPT/HCPCS: 80053; 87522; 85025

== ENCOUNTER 2020-05-23 11:35 | Emergency (ER) | payer MEDICAID, SELFPAY ==
[2020-05-23 11:48] VITALS: BP 117/64; PULSE 70; RESP 16; TEMP 36.4; O2SAT 97
--- NOTE | 2020-05-23 11:53 | W.ED.FU ---
Patient was brought in by significant other for evaluation for depression. He was initially seen by nursing staff and has denies suicidal or homicidal ideation. Was wanting to begin an antidepressant. Patient reports he did take half a tablet of Xanax this morning. Prior to being evaluated by myself, patient let staff know that he was going to be leaving the department is no longer wanted continued care. Based on his initial triage, patient does not appear to be an imminent threat to himself or others. Patient eloped from the department prior to being evaluated by myself.
--- NOTE | 2020-05-23 11:54 | NUR.NOTE ---
Pt triaged, reports increased depression with no SI/HI. Noted to have approx 4 cm wound to left forearm. No active bleeding. Pt states he had tried cutting, I'll never do that again, it's not for me. States GF is taking lexapro and he'd like to try taking that medicine. Reports clean off heroin x 1 year. Took 0.5mg xanax this am. Up to BR, asked to provide urine spec. ambulated back to desk, told CT Rao I can't stay here anymore. Ambulated to exit with steady gait.
== END 2020-05-23 11:51 | disposition left before discharge ==
LOC: ER 11:45
PROVIDERS: Emergency Provider Physician Assistant; PCP Family Medicine
DX: Z53.29 Procedure and treatment not carried out because of patient's decision for other reasons (principal)

== ENCOUNTER 2020-06-08 22:41 | Emergency (ER) | payer MEDICAID, SELFPAY ==
[2020-06-08 22:58] VITALS: BP 128/83; PULSE 80; RESP 18; TEMP 37; O2SAT 99
[2020-06-08 23:30] LABS: Abs Immature Grans 0.02 10^3/uL (0.0-0.06); Absolute Basophil Count 0.05 10^3/uL (0.0-0.2); Absolute Eosinophil Count 0.39 10^3/uL (0.0-0.7); Absolute Lymphocyte Count 3.68 10^3/uL (1.2-3.4); Absolute Monocyte Count 0.67 10^3/uL (0.1-0.8); Basophils % 0.5; Eosinophils % 3.6; HCT 43.2 % (40.0-50.0); HGB 14.4 g/dL (13.5-17.5); Immature Grans % 0.2; Lymphocytes % 33.9; MCH 31.7 pg (27.0-33.0); MCHC 33.3 % (32.0-36.0); MCV 95.2 fL (80-95); MPV 9.8 fL (8.0-11.0); Monocytes % 6.2; Neutrophils % 55.6; Nucleated RBC 0 %; Platelet Count 327 10^3/uL (130-400); RBC 4.54 10^6/uL (4.36-5.78); RDW 12.6 % (11.8-14.1); RDW-SD 44.5 fL; WBC 10.87 10^3/uL (4.4-10.8)
[2020-06-08 23:31] LABS: Absolute Neutrophil Count 6.04 10^3/uL (1.2-6.7)
[2020-06-08 23:49] LABS: *AMPHETAMINES SCREEN URINE Negative (Negative); *BARBITURATES SCREEN URINE Negative (Negative); *BENZODIAZEPINES SCREEN URINE Negative (Negative); Cannabinoids THC Positive (Negative); Cocaine Screen,Urine Negative (Negative); METHADONE URINE SCREEN Negative (Negative); OPIATES URINE SCREEN Positive (Negative)
[2020-06-08 23:50] LABS: Salicylate 2.8 mg/dL (<2.8)
[2020-06-08 23:51] LABS: Tricyclic Antidepressants Negative (Negative)
[2020-06-08 23:51] LABS: Acetaminophen < 2 ug/mL (10-30)
[2020-06-08 23:53] LABS: ALT 23 U/L (16-63); AST 21 U/L (15-37); Albumin 3.8 g/dL (3.4-5.0); Alkaline Phosphatase 35 U/L (46-116); Anion Gap 3.5 mmol/L (3-11); BUN 18 mg/dL (7-18); Bilirubin, Total 0.3 mg/dL (0.2-1.0); CO2 33.5 mmol/L (21.0-32.0); Calcium 8.9 mg/dL (8.5-10.1); Chloride 103 mmol/L (98-107); ETHANOL BLOOD < 3.0 mg/dL (<3); Glucose 120 mg/dL (74-106); Potassium 4.9 mmol/L (3.5-5.1); Sodium 140 mmol/L (136-145); TSH 1.95 uIU/mL (0.36-3.74); Total Protein 7.2 g/dL (6.4-8.2)
--- NOTE | 2020-06-08 23:57 | ED.GENADUL_ITS ---
Discharge Plan Disposition Patient Disposition: HOME Condition: Good Discharge Details Clinical Impression: Depression Primary Care Provider: Galen Clemens ED Provider: Titus Wei Home Meds and New Rx's Prescriptions: Continued Narcan 4 mg/actuation spray,non-aerosol 4 mg NS DIRECTED Qty: 2 RF: 0 Vivitrol 380 mg Suspension,Extended Rel Recon See Rx Instructions .ROUTE .COMPLEX RF: 0 Mavyret 100-40 mg tablet 3 tab PO DAILY RF: 0 Discharge Instructions Instructions: Depression (ED) Additional Instructions: At this time you are stable to go home. Please follow-up closely with her mental health advocates, go to your methadone appointment tomorrow, and never hesitate to contact us if you need any help support or assistance. Your mental health advocate can be reached at the following number: [phone] If you notice any worsening of your symptoms, or any new symptoms such as vomiting, diarrhea, fever, chills, shortness of breath, chest pain, numbness, weakness, or fainting , please return immediately to the emergency department for reevaluation. Please follow up with your primary care provider as soon as possible for reassessment and reevaluation. As always, it was a pleasure participating in your medical care today. Referrals: Galen Clemens [Primary Care Provider] - Medical Decision Making 24-year-old male with a past medical history of IV and illicit drug use, previous hepatitis, presents today for evaluation of depression. Patient is scheduled to start at the [facility] tomorrow, however over the past 24 to 36 hours he has noted a notable increase in stress at home, including co nfrontation with his spouse, and feelings of depression. He states that he does not want to kill himself or end his life but he keep feeling like he just wants all of the trauma and stress to stop. He has cut himself superficially on his skin, but denies any history of suicidal attempts, current suicidal ideation, or homicidal ideation. He denies any auditory or visual hallucinations or command hallucinations. He states that he did use heroin yesterday, but has not used any today. He denies any alcohol use. No other complaints at this time. He states that he would like help in discussion of his regular life with a counselor at this time. Exam demonstrates a stable male, small superficial abrasions over his left forearm. No other significant abnormalities. He has no current homicidal or suicidal ideations, patient is clinically sober. He is medically clear from my perspective. We did contact mental health for discussion and assistance with the patient, they did request that we get screening labs, and I am happy to oblige, however I do not think at this time that it is necessary for his current medical management, and I feel that we can continue with the current discussion process with the patient. 12:12 AM Patient has been seen and assessed by mental health. They agree that he is notably stable and can go home with support on an outpatient basis. With no current homicidal or suicidal ideations there is no indication for inpatient management. Patient will be discharged with instructional support technician for home as needed. Discussed red flags which to return. I have extensively reviewed the treatment plan and discharge instructions with the patient. I have addressed all patient concerns at this time. The patient was made aware of what symptoms to monitor for that would warrant a return to the emergency department. Discussed the plan with the patient, they demonstrate verbal understanding and agreement with our assessment and plan at this time. The documentation in this chart was dictated using [employer] dictation software. Please excuse any dictation errors. HPI General Date/Time Provider Initiated Documentation: 06/08/20 22:46 . HPI Narrative: 24-year-old male with a past medical history of IV and illicit drug use, previous hepatitis, presents today for evaluation of depression. Patient is scheduled to start at the [facility] tomorrow, however over the past 24 to 36 hours he has noted a notable increase in stress at home, including confrontation with his spouse, and feelings of depression. He states that he does not want to kill himself or end his life but he keep feeling like he just wants all of the trauma and stress to stop. He has cut himself superficially on his skin, but denies any history of suicidal attempts, current suicidal ideation, or homicidal ideation. He denies any auditory or visual hallucinations or command hallucinations. He states that he did use heroin yesterday, but has not used any today. He denies any alcohol use. No other complaints at this time. He states that he would like help in discussion of his regular life with a counselor at this time. Related Data Home Medications Medication Instructions Recorded Confirmed naloxone 4 mg/actuation nasal spray 4 mg NS DIRECTED #2 spray 02/13/19 03/16/20 Vivitrol See Rx Instructions .ROUTE .COMPLEX 06/05/19 03/16/20 Mavyret 3 tab PO DAILY 03/16/20 03/16/20 Previous Rx's Medication Instructions Recorded naloxone 4 mg/actuation nasal spray 4 mg NS DIRECTED #2 spray 02/13/19 Allergies Allergy/AdvReac Type Severity Reaction Status Date / Time No Known Allergies Allergy Verified 03/16/20 18:01 General Stated Complaint: PsychEval MARTÍN: 2 Review of Systems All systems reviewed & are unremarkable except as noted in HPI and below [facility] Medical History (Updated 06/09/20 @ 00:10 by Titus Wei DO) Accidental overdose of heroin (09/24/17) Hepatitis C virus infection (~02/2018) Tooth infection Family History Mother Depression Grandfather Depression Heart disease Grandfather No problems noted. Grandmother Hyperlipidemia Grandmother Personal history of malignant neoplasm PANCREATIC Social History Smoking/Tobacco Use Status: Current every day Tobacco Type: e-cigarettes Smoking risk assessment performed?: Yes Alcohol Intake: current Alcohol Intake frequency: a few times a month Drug use: Daily Substance use type: marijuana and opiates Details: fentanyl Caregiver/Support person: Yes (states mom (John) his strongest support person) Household members: family Current gender identity: male What type of physical activity do you participate in: none Seatbelt use: always Do you feel safe at home: Yes Do you feel safe in your relationship?: Yes Additional Social history: Narcan available at house Exam Narrative Exam Narrative: 1.Const: Well-nourished, Well-developed, appearing stated age 2.Eyes: PERRL, no conjunctival injection, and symmetrical lids. 3.ENT: Atraumatic external nose and ears. Moist MM. Neck: Symmetric, trachea midline, No thyromegaly. 4.CVS: +S1/S2, No murmurs or gallops. Peripheral pulses 2+ and equal in all extremities. Brisk capillary refill in all extremities. 5.RESP: Unlabored respiratory effort. Clear to auscultation bilaterally. No wheezes rales or rhonchi 6.GI: Soft, Nontender/Nondistended, No hepatosplenomegaly. No guarding or rebound. 7.MSK: Normocephalic/Atraumatic, Extremities w/o deformity or ttp No cyanosis or clubbing, Normal movement of all extremities 8.Skin: Warm, Dry. Small superficial abrasions over the left forearm. No deep cuts whatsoever. 9.Neuro: caption writer II-XII grossly intact. Sensation grossly intact, no focal neurologic deficits. 10.Psych: (AAO) x3. Appropriate mood and affect Course Vital Signs Vital signs: Vital Signs Temperature 37.0 C 06/08/20 22:58 Pulse 80 06/08/20 22:58 Respiratory Rate 18 06/08/20 22:58 Blood Pressure 128/83 06/08/20 22:58 Pulse Oximetry 99 06/08/20 22:58 Temperature 37.0 C 06/08/20 22:58 Temperature Source Temporal Artery Scan 06/08/20 22:58 Pulse 80 06/08/20 22:58 Respiratory Rate 18 06/08/20 22:58 Respiratory Effort 06/08/20 23:03 Blood Pressure 128/83 06/08/20 22:58 Blood Pressure Position Sitting 06/08/20 22:58 Pulse Oximetry 99 06/08/20 22:58 Oxygen Delivery Method Room Air 06/08/20 22:58 Oxygen Flow Rate 0 06/08/20 22:58 Lab/Test Results Lab/Test Results: Laboratory Tests Range/Units 06/08/20 06/08/20 06/08/20 23:20 23:20 23:20 WBC (4.4-10.8) 10^3/uL 10.87 H RBC (4.36-5.78) 10^6/uL 4.54 Hgb (13.5-17.5) g/dL 14.4 Hct (40.0-50.0) % 43.2 MCV (80-95) fL 95.2 H MCH (27.0-33.0) pg 31.7 MCHC (32.0-36.0) % 33.3 RDW (11.8-14.1) % 12.6 Plt Count (130-400) 10^3/uL 327 MPV (8.0-11.0) fL 9.8 Immature Gran % 0.2 Neutrophils % 55.6 Lymphocytes % 33.9 Monocytes % 6.2 Eosinophils % 3.6 Basophils % 0.5 Nucleated RBC % % 0 Absolute Neutrophils (1.2-6.7) 10^3/uL 6.04 Absolute Lymphocytes (1.2-3.4) 10^3/uL 3.68 H Absolute Monocytes (0.1-0.8) 10^3/uL 0.67 Absolute Eosinophils (0.0-0.7) 10^3/uL 0.39 Absolute Basophils (0.0-0.2) 10^3/uL 0.05 Sodium (136-145) mmol/L 140 Potassium (3.5-5.1) mmol/L 4.9 Chloride (98-107) mmol/L 103 Carbon Dioxide (21.0-32.0) mmol/L 33.5 H Anion Gap (3-11) mmol/L 3.5 BUN (7-18) mg/dL 18 Creatinine (0.70-1.30) mg/dL 1.0 Estimated GFR/1.73 m2 (mL/min/1.73m2) >= 60.00 Glucose (74-106) mg/dL 120 H Calcium (8.5-10.1) mg/dL 8.9 Total Bilirubin (0.2-1.0) mg/dL 0.3 AST (15-37) U/L 21 ALT (16-63) U/L 23 Alkaline Phosphatase (46-116) U/L 35 L Total Protein (6.4-8.2) g/dL 7.2 Albumin (3.4-5.0) g/dL 3.8 TSH (0.36-3.74) uIU/mL 1.95 Salicylates (<2.8) mg/dL 2.8 Urine Opiates Screen (Negative) Urine Methadone Screen (Negative) Acetaminophen (10-30) ug/mL < 2 Ur Barbiturates Screen (Negative) Ur Tricyclics Screen (Negative) Ur Amphetamines Screen (Negative) U Benzodiazepines Scrn (Negative) Urine Cocaine Screen (Negative) Ur THC Screen (Negative) Ethyl Alcohol (<3) mg/dL < 3.0 Range/Units 06/08/20 23:30 WBC (4.4-10.8) 10^3/uL RBC (4.36-5.78) 10^6/uL Hgb (13.5-17.5) g/dL Hct (40.0-50.0) % MCV (80-95) fL MCH (27.0-33.0) pg MCHC (32.0-36.0) % RDW (11.8-14.1) % Plt Count (130-400) 10^3/uL MPV (8.0-11.0) fL Immature Gran % Neutrophils % Lymphocytes % Monocytes % Eosinophils % Basophils % Nucleated RBC % % Absolute Neutrophils (1.2-6.7) 10^3/uL Absolute Lymphocytes (1.2-3.4) 10^3/uL Absolute Monocytes (0.1-0.8) 10^3/uL Absolute Eosinophils (0.0-0.7) 10^3/uL Absolute Basophils (0.0-0.2) 10^3/uL Sodium (136-145) mmol/L Potassium (3.5-5.1) mmol/L Chloride (98-107) mmol/L Carbon Dioxide (21.0-32.0) mmol/L Anion Gap (3-11) mmol/L BUN (7-18) mg/dL Creatinine (0.70-1.30) mg/dL Estimated GFR/1.73 m2 (mL/min/1.73m2) Glucose (74-106) mg/dL Calcium (8.5-10.1) mg/dL Total Bilirubin (0.2-1.0) mg/dL AST (15-37) U/L ALT (16-63) U/L Alkaline Phosphatase (46-116) U/L Total Protein (6.4-8.2) g/dL Albumin (3.4-5.0) g/dL TSH (0.36-3.74) uIU/mL Salicylates (<2.8) mg/dL Urine Opiates Screen (Negative) Positive A Urine Methadone Screen (Negative) Negative Acetaminophen (10-30) ug/mL Ur Barbiturates Screen (Negative) Negative Ur Tricyclics Screen (Negative) Negative Ur Amphetamines Screen (Negative) Negative U Benzodiazepines Scrn (Negative) Negative Urine Cocaine Screen (Negative) Negative Ur THC Screen (Negative) Positive A Ethyl Alcohol (<3) mg/dL
--- NOTE | 2020-06-09 00:10 | PDOC.MHCN ---
Date of service: 06/08/20 Time of Service: 11:48 Mental Health Crisis Note Presenting Issue How did you arrive at the ED and why did you come: Patient arrived at the ED due to feeling hopeless after fighting with his girlfriend about his drug addiction. Precipitating Factors Patient shared that he has an appointment at [facility] tomorrow. Patient shared that he struggles with hopelessness when he is coming down off drugs and tonight he just felt like he needed to get out of the house and talk to someone. Patient shared that usually he speaks to his counselor but she did not answer tonight. Patient denies SI/HI, Pateint shared that he has children at home he wants to get back to and get some sleep. Patient denies access to guns and medication other then Ibuprofen. Patient was given [facility] emergency contact to reach out if things changed. Patient shared he will contact [facility] tomorrow after his appointment to check in. Disposition BEHAVIOR: cooperative EYE CONTACT: good MOOD: calm, tired AFFECT: broad APPETITE: good SLEEP(trouble falling/staying asleep: okay Plan Patient will go home get some sleep and attend his appointment at the [facility] in the morning. Patient will call [facility] tomorrow to check in. Patient does not have lethal means at home and will not be alone. Patient shared his mother is a support foe him. Signature Clinician's Name/Title: Mikey MEHTA
== END 2020-06-09 00:13 | disposition home or self-care (01) ==
PROVIDERS: Physician Assistant; Emergency Provider Student in an Organized Health Care Education/Training Program; PCP Family Medicine
DX: F32.9 Major depressive disorder, single episode, unspecified (principal); F11.20 Opioid dependence, uncomplicated
CPT/HCPCS: 36415; 80053; 80307; 99283; 80320; 80329; 84443; 85025

== ENCOUNTER 2020-09-17 12:41 | Emergency (ER) | payer MEDICAID, SELFPAY ==
[2020-09-17 12:45] VITALS: BP 119/76; PULSE 80; RESP 18; TEMP 36.5; O2SAT 96
--- OUTSIDE RECORDS SUMMARY | 2020-09-17 13:07 | XMS_ITS ---
:1995 Author Care Team Providers Name Role Phone Maria Luisa Soto Primary Care Provider Unavailable Allergies Code Code System Name Reaction Severity Status Onset NKDA ? Medications Name Status Start Date Stop Date ? ? clonidine HCl 0.1 mg tablet Active ? Not available fluocinonide 0.05 % topical cream Completed ? 07/12/2020 APPLY TO AFFECTED SKIN ONE TO TWO TIMES DAILY hydroxyzine HCl 25 mg tablet Active ? Not available Mavyret 100 mg-40 mg tablet Completed ? 07/06 TAKE THREE TABLETS BY MOUTH EVERY DAY FOR 8 WEEKS naltrexone 50 mg tablet Completed ? 07/13/19 TAKE ONE TABLET BY MOUTH EVERY DAY DURING LAST WEEK OF EACH Sun penicillin V potassium 500 mg tablet Completed ? 07/12/2020 TAKE 1 TABLET BY MOUTH FOUR TIMES DAILY FOR 7 DAYS ropinirole 0.25 mg tablet Active ? Not av ailable Suboxone 2 mg-0.5 mg sublingual film Active ? Not available Suboxone 4 mg-1 mg sublingual film Active ? Not available Suboxone 8 mg-2 mg sublingual film Active ? Not available DISSOLVE 2 FILMS UNDER THE TONGUE DAILY FOR 7 DAYS Vivitrol 380 mg intramuscular Completed ? suspension,extended release Problems Name Status Onset Date Source ? Opioid Withdrawal Active 07/07/2020 ? Anxiety Active 07/07/2020 ? Opioid Dependence Active 07/07/2020 ? Insomnia Active 07/07/2020 ? Restless Legs Active 07/07/2020 ? History of Depression Active 07/07/2020 ? Procedures None recorded. Results Lab Results Date Name Specimen Result Interpretation Description Value Range Status Address ? 07/13/2020 Drug UR ? Amphetamines negative NG/mL 1,000 Final [facility] Screen, NG/mL Health: Urine [address], [place] ? ? UR ? Benzodiazapines negative NG/mL 200 Final [facility] NG/mL Health: [address], [place] ? ? UR ABNORMAL Buprenorphine negative NG/mL 5 Final [facility] NG/mL Health: [address], [place] ? ? UR ? Cocaine negative NG/mL 150 Final [facility] Metabolite NG/mL Health : [address], [place] ? ? UR ABNORMAL Opiates positive NG/mL 300 Final [facility] NG/mL Health: [address], [place] ? ? UR ? Oxycodone negative NG/mL 300 Final [facility] NG/mL Health: [address], [place] ? ? UR ABNORMAL Fentanyl positive NG/mL 2 Ludmila l [facility] NG/mL Health: [address], [place] ? ? UR ? Ethyl Alcohol negative mg/dL 10 F inal [facility] mg/dL Health: [address], [place] ? ? UR ? Methadone negative NG/mL 300 Final [facility] Metabolite NG/mL Health : [address], [place] ? ? UR ? Urine Creatinine 99.7 mg/dL 20 Fi nal [facility] mg/dL Health: [address], [place] ? ? UR ? Urine pH 9.00 4.5-9. Final [facility] 0 Health: [address], [place] ? ? UR ? Specific [place] 1.014 1.003- Final [facility] 1.035 Health: [address] 07/13/2020 Opiates, UR ? 6-Acetylmorphine negative NG/mL 10 Final [facility] Quantita NG/mL Health: tive, 12 [address], [place] ? ? UR ? Codeine negative NG/mL 50 Final [facility] NG/mL Health: [address], [place] ? ? UR ? Hydrocodone negative NG/mL 50 Fin al [facility] NG/mL Health: [address], [place] ? ? UR ? Hydromorphone negative NG/mL 50 F inal [facility] NG/mL Health: [address], [place] ? ? UR High Morphine 144 NG/mL 50 Final Sindy da NG/mL Health: [address], [place] ? ? UR ? Norhydrocodone negative NG/mL 100 Final [facility] NG/mL Health: [address], [place] ? ? UR High Fentanyl 69 NG/mL 20 Final [place] a NG/mL Health: [address], [place] ? ? UR High Norfentanyl olr(>2000) 20 Final [facility] NG/mL NG/mL Health: [address], [place] ? ? UR ? Tramadol negative NG/mL 100 Final [facility] NG/mL Health: [address], [place] ? ? UR ? Legend abbreviations ? Final Sa [facility]ce Health: [address], [place] ? ? UR ? Billing Only billing only ? Ludmila l [facility] ([id number]) Health: [address] [place] 07/13/2020 Drug UR ABNORMAL Buprenorphine negative NG/mL 20 Final [facility] Confirma NG/mL Health: tion, 12 [address], [place] ? ? UR ABNORMAL Norbuprenorphine negative NG/mL 50 Final [facility] NG/mL Health: [address], [place] ? ? UR ? Legend abbreviations ? Final Sa joyce Health: [address] [place] 07/07/2020 Drug UR ? Amphetamines negative NG/mL 1,000 Final [facility] Screen, NG/mL Health: Urine [address], [place] ? ? UR ? Benzodiazapines negative NG/mL 200 Final [facility] NG/mL Health: [address], [place] ? ? UR ABNORMAL Buprenorphine negative NG/mL 5 Final [facility] NG/mL Health: [address], [place] ? ? UR ? Cocaine negative NG/mL 150 Final [facility] Metabolite NG/mL Health : [address], [place] ? ? UR ? Opiates negative NG/mL 300 Final [facility] NG/mL Health: [address], [place] ? ? UR ? Oxycodone negative NG/mL 300 Final [facility] NG/mL Health: [address], [place] ? ? UR ABNORMAL Fentanyl positive NG/mL 2 Ludmila l [facility] NG/mL Health: [address], [place] ? ? UR ? Ethyl Alcohol negative mg/dL 10 F inal [facility] mg/dL Health: [address], [place] ? ? UR ABNORMAL Methadone positive NG/mL 300 Fin al [facility] Metabolite NG/mL Health : [address], [place] ? ? UR ? Urine Creatinine 75.6 mg/dL 20 Fi nal [facility] mg/dL Health: [address], [place] ? ? UR ? Urine pH 6.10 4.5-9. Final [facility] 0 Health: [address], [place] ? ? UR ? Specific [place] 1.019 1.003- Final [facility] 1.035 Health: [address] 07/07/2020 Drug UR ABNORMAL Buprenorphine negative NG/mL 20 Final [facility] Confirma NG/mL Health: tion, 12 [address], [place] ? ? UR ABNORMAL Norbuprenorphine negative NG/mL 50 Final [facility] NG/mL Health: [address], [place] ? ? UR ? 6-Acetylmorphine negative NG/mL 10 Final [facility] NG/mL Health: [address], [place] ? ? UR ? Codeine negative NG/mL 50 Final [facility] NG/mL Health: [address], [place] ? ? UR ? Hydrocodone negative NG/mL 50 Fin al [facility] NG/mL Health: [address], [place] ? ? UR ? Hydromorphone negative NG/mL 50 F inal [facility] NG/mL Health: [address], [place] ? ? UR ? Morphine negative NG/mL 50 Final [facility] NG/mL Health: [address], [place] ? ? UR ? Norhydrocodone negative NG/mL 100 Final [facility] NG/mL Health: [address], [place] ? ? UR ? Noroxycodone negative NG/mL 50 Fi nal [facility] NG/mL Health: [address], [place] ? ? UR ? Oxycodone negative NG/mL 25 Final [facility] NG/mL Health: [address], [place] ? ? UR ? Oxymorphone negative NG/mL 100 Fin al [place] NG/mL Health: [address], [place] ? ? UR High Fentanyl 307 NG/mL 20 Final Sindy da NG/mL Health: [address], [place] ? ? UR High Norfentanyl 1356 NG/mL 20 Final [place] NG/mL Health: [address], [place] ? ? UR ? Benzoylecgonine negative NG/mL 100 Final [facility] NG/mL Health: [address], [place] ? ? UR ? Amphetamine negative NG/mL 250 Fin al [place] NG/mL Health: [address], [place] ? ? UR ? Methamphetamine negative NG/mL 250 Final [facility] NG/mL Health: [address], [place] ? ? UR ? Mda negative NG/mL 250 Final Sa [place] NG/mL Health: [address], [place] ? ? UR ? Alpha-hydroxyalp negative NG/mL 25 Final [facility] razolam NG/mL Health: [address], [place] ? ? UR ? 7-Aminoclonazepa negative NG/mL 40 Final [facility] m NG/mL Health: [address], [place] ? ? UR ? Diazepam negative NG/mL 50 Final [facility] NG/mL Health: [address], [place] ? ? UR ? Lorazepam negative NG/mL 50 Final [facility] NG/mL Health: [address], [place] ? ? UR ? Nordiazepam negative NG/mL 50 Fin al [facility] NG/mL Health: [address], [place] ? ? UR ? Temazepam negative NG/mL 50 Final [facility] NG/mL Health: [address], [place] ? ? UR High Methadone olr(>4000) 250 Final [place] NG/mL NG/mL Health: [address], [place] ? ? UR High Eddp olr(>4000) 100 Final [facility] NG/mL NG/mL Health: [address], [place] ? ? UR ? Normeperidine negative NG/mL 100 F inal [facility] NG/mL Health: [address], [place] ? ? UR ? Tramadol negative NG/mL 100 Final [facility] NG/mL Health: [address], [place] ? ? UR ? Legend abbreviations ? Final Sa joyce Health: [address], [place] Past Encounters 07/20/[address] [place]: [address] [place] [id number], Ph. 07/13/[address] [place]: [address] [place] [address], Ph. 07/08/2020 Opioid Dependence Carmen De Paz [employer]: [address] [facility] [place] [address], Ph. 07/07/2020 Opioid Dependence; Opioid Withdrawal; Re stless Legs; Anxiety; Insomnia Carmen De Paz [employer]: [address] [facility] [place] [address], Ph. Social History Tobacco Smoking Status Heavy Tobacco Smoker (2 packs per a d ay) Vaccine List None recorded. Plan of Care Patient Instructions As part of your individualized lupe atment plan and program requirement, you will need to bring your correct prescription bottle and all used and unused medication and counseling verification to each appointm ent; > Agree to participate in counseling and bring counseling verification to eac h appointment; > Agree to present for random visits; > Agree to not falsify your urin e specimens. As part of your individualized lupe atment plan and program requirement, you will need to bring your correct prescription bottle and all used and unused medication and counseling verification to each appointm ent; > Agree to participate in counseling and bring counseling verification to eac h appointment; > Agree to present for random visits; > Agree to not falsify your urin e specimens. As part of your individualized lupe atment plan and program requirement, you will need to bring your correct prescription bottle and all used and unused medication and counseling verification to each appointm ent; > Agree to participate in counseling and bring counseling verification to eac h appointment; > Agree to present for random visits; > Agree to not falsify your urin e specimens. Abstain from opiates for 24 hours unless directed by provider; > If already taking buprenorphine, do not take a dose the day of the induction until you are in the office with your provider; &g t; Comfort medications were recommended. If accepted, please take as prescribed to support your ability to abstain from opiates until your buprenorphine induction; > Keep your buprenorphine RX packa ge closed until you are seen by your pro vider for induction unless otherwise directed; If you have problems abstaining from opiates, please call the office. As part of your individualized treatmen t plan and program requirement, you will need to bring your correct prescription bottle and all used and unused medication and counseling verification to each bogdan ointment; > Agree to participate in cou nseling and bring counseling verification to each appointment; > Agree to present for random visits; > Agree to not falsify your urine specimens. Reminders Provider Appointments None recorded. ? ? Lab None recorded. ? ? Referral None recorded. ? ? Procedures None recorded. ? ? Surgeries None recorded. ? ? Imaging None recorded. ? ? Vitals None recorded.
--- OUTSIDE RECORDS SUMMARY | 2020-09-17 13:07 | XMS_ITS | Encounter Summary ---
:1995 Author Reason for Visit MAT telemedicine*; OUD - buprenorphine f ollow-up - weekly* Assessment and Plan Assessment Note Telemedicine Information: This telmed (audio + visual) appointmen t provided a MAT prescription. Time Start: 8:08a; Time End:8:11a Provider Location: office; Patient Loca tion: office Telemedicine Consent Given (verbal): Y Lab Results Last UDS Result (Qual Screen): 07/13/20 NEG Buprenorphine and POS for the following illicit drugs or EtOH: +opiates, +fentanyl Last Confirmatory Test Result (LCMS/Qu ant): PENDING Last Buprenorphine Confirmation Test Re sult: Bup: N/A ng/ml & Norbup: N/A ng/ml Last LFT Result : needs labs Since Last Visit THIS PT IS BEING TREATED FOR OUD WITH BU PRENORPHINE AND IS SEEN WEEKLY. CURRENT PRESCRIPTION IS: Suboxone 8mg fi lms - increasing today to 16mg films (8mg x2) Bio/psycho/social Update: Matt is a 24y/o male with hx OUD, MDD, anxiety, insomnia on Suboxone 8mg films seen weekly OUD: Suboxone dose increased at last vis it 07/13 from 4mg to 8mg daily due to continued w/d sxs and fentanyl use. Pt reports he continues to feel underdosed and states that he ran out of medication 2 days ago due to needing additional Suboxone. He used some fentanyl over this week as well due to the w/d sxs (myalgias, restlessness). States the highest dose he took in a day was 16mg, which he felt amazing on. Denies opioid use yesterday or today. Reviewed proper medication administratio n with pt, including not eating/drinking/smoking for at least 15min before and after dose and holding saliva in mouth until tab/film fully dissolves, then swallow ing saliva. Pt voiced understanding and adherence to these guidelines Will increase Suboxone dose to 16mg toda y 07/20 due to continued w/d sxs and opioid use. Initial visit: 07/07/20 HCV: Took full course of Mavyret, finish ed April 2020. States he is still pending final labwork, believes that the infection has fully cleared. Still seeing ID specialist Assessment The patient's current phase of treatment is Stabilization phase, OUD. 1) Interpretation of Confirmatory (LCMS) Test Result: PENDING 2) Interpretation of Last Buprenorphine Confirmation Test Result: N/A (new to care) 3) Medication Dose: Pt's dose will be ch anged at today's visit for the following reasons: continued w/d sxs and opioid use 4) Markers of Recovery include: stable e mployment, engagement in care The patient does meet diagnostic criteri a for opioid dependence. The patient is responding to treatment w ith buprenorphine at OBOT level of care at this phase of treatment. The patient does continue to be a good c andidate for this level of care. LFT will be repeated per our clinical pr otocol. Urine drug testing is ordered today with medical necessity as below. LAB ORDERS - Confirmatory testing f or illicit substances or absence of prescribed buprenorphine. UNEXPECTED results on UDS may impact thi s patient's treatment plan. The following tests require confirmation via LCMS: Y POS for AMPHETAMINE Y POS for BENZODIAZEPINES Y POS for COCAINE Y POS for METHADONE Y POS for OPIATES W/FENTANYL Y POS for OXYCODONE ADDITIONAL LAB(S) REQUESTED - if indic ated, please order the following: NONE Plan OUD: Suboxone dose increased from 8mg to 16mg films. 7d Rx provided today Patient's visit frequency should be week ly. Frequency of UDS and confirmatory test, if applicable, should be weekly. Treatment plan review or change includes continue current level of care. Referrals made today include none. Prescription monitoring program is revie sun. If reviewed, I have identified agents prescribed to the patient in addition to any issued by our program; the patient is counseled regarding any risk of combining sedating agents. 1. Opioid dependence Unstable - new to treatment ? drug screen, urine ? Suboxone 8 mg-2 mg subling ual film Discussion Note: None recorded.Patient educational handouts: No information available. Plan of Care Patient Instructions As part of your individualized lupe atment plan and program requirement, you will need to bring your correct prescription bottle and all used and unused medication and counseling verification to each appointm ent; > Agree to participate in counseling and bring counseling verification to [facility] appointment; > Agree to present for random visits; > Agree to not falsify your urin e specimens. Reminders Provider Appointments None ? ? recorded. Lab Drug 07/20/2020 [facility], Urine Referral None ? ? recorded. Procedures None ? ? recorded. Surgeries None ? ? recorded. Imaging None ? ? recorded. Medications Name Start Date ? ? clonidine HCl 0.1 mg tablet ? Take 1 tablet twice a day by oral route as needed. hydroxyzine HCl 25 mg tablet ? ropinirole 0.25 mg tablet ? Take 1 tablet 3 times a day by oral route. Suboxone 2 mg-0.5 mg sublingual film ? Suboxone 4 mg-1 mg sublingual film ? Suboxone 8 mg-2 mg sublingual film ? DISSOLVE 2 FILMS UNDER THE TONGUE DAILY FOR 7 DAYS Medications Administered None recorded. Vitals None recorded. Results Lab Results None recorded. Allergies Code Code System Name Reaction Severity Onset NKDA ? ? ? Problems Name Status Onset Date Source ? Opioid Withdrawal Active 07/07/2020 ? Anxiety Active 07/07/2020 ? Opioid Dependence Active 07/07/2020 ? Insomnia Active 07/07/2020 ? Restless Legs Active 07/07/2020 ? History of Depression Active 07/07/2020 ? Procedures None recorded. Vaccine List None recorded. Social History Tobacco Smoking Status Heavy Tobacco Smoker (2 packs per a day) *Legal Assistance Not required * Not a *Custody of Dependent Children No Custody *Job Not needed Training/Education/Literacy *Social Service's Involvement Not applicable with Dependent Children In the 14 days before symptom N onset, have you had close contact with a person who is under investigation for COVID-19 while that person was ill? 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 *Legal Status No legal issues *Childcare Needed N *Concern for Domestic Violence N *Other Medical Issues None *Food Adequate *Housing Not stable Family History Relation Problem Onset Age of Age Notes Father No current problems (No Information) N/A (No Notes) or disability Mother No current problems (No Information) N/A (No Notes) or disability Functional Status Unknown. Past Encounters 07/20/[address] [place]: [address] [place] [address], Ph. 07/13/[address] [place]: [address] [place] [address], Ph. 07/08/2020 Opioid Dependence Carmen De Paz [employer] [address] [facility] [place] [address], Ph. 07/07/2020 Opioid Dependence; Opioid Withdrawal; Re stless Legs; Anxiety; Insomnia Carmen De Paz [employer]: [address], [place] [address], Ph. History of Present Illness Note: <p>The patient reports {{doing better doing well struggling*}} since last visit and {{denies reports*}} slip or relapse.

<strong>MAT HPI</strong><b r>They {{deny report*}} cravings for opiates and {{deny report*}} opiates use since their last visit.
They {{deny* report}} cravings for other substances and {{deny* report}} other substance use since their last visit.
Triggers {{are are not*}} identified and any alleviating factors to identified triggers are discussed.
Withdrawal symptoms {{are* are not}} present (anxiety, sweating, myalgias, restlessness)

<strong>MAT Administration and Program Adherence</strong>
The patient {{is* is not}} compliant with prescribed buprenorphine dose
The patient {{denies* reports}} side effects from the medication.
There {{are* are not}} other support systems in place for this patient.

There {{is is no*}} concern for diversion.</p> Review of Systems ? Comprehensive Adult Problem ROS Reported By: Patient Constitutional: Constitutional: no significa nt weight change, happy/content, normal activity level, exces sive sweating Respiratory: Respiratory: normal respirat ion Gastrointestinal: GI: no abdominal pain, no na usea, no constipation Musculoskeletal: Musculoskeletal: myalgia Neurological symptoms: Neuro: no headache Psychiatric: Psych: no depression, no str ess, anxiety, insomnia Physical Exam ? General Adult Exam* Reported By: Patient Constitutional*: General Presentation: well-n ourished, well-developed. Level of Distress:* responsive in con versation*, mild distress* Psychiatric*: Insight:* good judgement*. M abhishek:* recent memory normal*. Mental Status* active & alert*, nor mal affect*, normal mood* Head: Head: normocephalic, atrauma tic ENMT*: Lips, Teeth, and Gums: no mo uth or lip ulcers. Hearing:* no hearing loss* Lungs*: Respiratory effort:* no dysp marcela*, no audible wheezing* Neurologic*: Orientation:* to time*, to p lace*, to person*. Cranial Nerves:* articulate: coordinated spee ch*
--- OUTSIDE RECORDS SUMMARY | 2020-09-17 13:07 | XMS_ITS | Encounter Summary ---
:1995 Author Reason for Visit observed dosing*; MAT telemedicine* Assessment and Plan Assessment Note The patient's current phase of max tment is Induction phase, OUD. Observed dosing was today during today' s office visit. The patient did tolerate observed dosing with buprenorphine with total daily dose. Assessment Review of recent UDS and LCMS is expect ed. The patient does meet diagnostic criteria for opioid dependence. The patient is responding to treatment with buprenorphine at OBOT level of care at this phase of treatment. The patient does continue to be a good candidate for this level of care. LFT will be repeated per our clinical protocol. Urine drug testing is ordered today with medical necessity as below. ADDITIONAL LAB(S) REQUESTED - if indic ated, please order the following: NONE Plan RTC WED FOR F/U VISIT SUBOXONE 4 MG FILMS DAILY COUNSELING SCHED WILL NEED LABS Patient's visit frequency should be wee kly. Frequency of UDS and confirmatory test, if applicable, should be weekly. Treatment plan review or change include s increase frequency of counseling. Referrals made today include substance abuse counseling. Prescription monitoring program is revi ewed. If reviewed, I have identified agents prescribed to the patient in addition to any issued by our program; the patient is counseled regarding any risk of combining sedating agents. Telemedicine Information: This telmed (audio + visual) appointment provided a MAT prescription. SOFT INDUCTION Time Start: 1150; Time End:1220 Provider Location: REMOTE; Patient Locat ion: office Telemedicine Consent Given (verbal): Y 1. Opioid dependence UNSTABLE; NEW PT Discussion Note Education provided at today's visit included: Review of patient's individualized treatment plan; Review of program polici es: RX, visit, counseling and DATA compliance; Review medication administra tion technique; Discussion proper care of medication/safety/lock box; Counseling r e: trigger avoidance, relapse prevention and the importance of developing a sober net work; Counseling re safe sex and control; Review risk of BZD and BUP, as well as ETOH; Counseling re: Discovery & Drop out prevention in early recovery. Patient educational handouts: No information available. Plan of [...] urin e specimens. Reminders Provider Appointments None recorded. ? ? Lab None recorded. ? ? Referral None recorded. ? ? Procedures None recorded. ? ? Surgeries None recorded. ? ? Imaging None recorded. ? ? Medications Name Start Date ? ? clonidine [...] or disability Functional Status Unknown. Past Encounters 07/08/2020 Opioid Dependence Carmen De Paz, [employer] [place]: [address] [place] [address], Ph. 07/07/2020 Opioid Dependence; Opioid Withdrawal; Re stless Legs; Anxiety; Insomnia Carmen De Paz [employer]: [address], [place] [address], Ph. History of Present Illness Note: <p>The patient reports {{doing better doing well struggling*}} since last visit and {{denies* reports}} slip or relapse.

<strong>Observed Dosing</strong& gt;
The patient presents for observed dosing day {{1* 2 3}} of {{1* 2 3}}.
The reason for observed dosing visit include: {{INDUCTION# CLICK TO FREE TEXT OR DELETE LINE}}.
Thepatient {{did* did not}} present with their medication as requested and the visit {{was* was not}} continued as observed dosing.

Patient is dosed in office with their own medication. They are given a dose of: {{4 MG # FREE TEXT}}.
The patient is observed in officefor a total of: {{30 mins* 45 mins 1 hr 1.5 hrs 2 hrs}} and there {{was was no*}} evidence of precipitated withdrawal.
The patient {{was* was not observed}} taking their total daily dose and adose {{was was not*}} repeated.

<strong>MAT HPI</strong>< br>They {{deny report*}} cravings for opiates and {{deny* report}} opiates use since their last visit.
They {{deny* report}} cravings for other substances and {{deny* report}} other substance use since their last visit.
Triggers {{are* are not}} identified and any alleviating factors to identified triggers are discussed.
Withdrawal symptoms {{are* are not}} present. (COLD SWEATS, RESTLESSNESS)

<strong>MAT Administration and Program Adherence</strong>
The patient {{is* is not}} compliant with prescribed buprenorphine dose and {{can* can not}} describe proper medication administration and technique.
The patient { {denies* reports}} side effects from the medication.
The patient {{has has not*}} attended counseling since their last MAT visit and {{is* is not}} in program compliance.
There {{are* are not}} other support systems in place for this patient.
Markers of recovery include:{{TBD # CLICK TO FREE TEXT OR DELETE LINE}}

There {{is is no*}} concern for diversion based on {{UDS/NEW PT# UDS medication count bup/norbup therapeutic level trend drug screen and med count}}.</p> Review of Systems ? Comprehensive Adult Problem ROS Reported By: Patient Constitutional: Constitutional: diminished a ctivity, excessive sweating; RESTLESSNESS ENMT: ENMT: no congestion Cardiovascular: Cardiovascular: no chest allan n Respiratory: Respiratory: no cough Gastrointestinal: GI: no abdominal pain, no na usea, no vomiting, no diarrhea, no constipation Musculoskeletal: Musculoskeletal: moves all e xtremities well Neurological symptoms: Neuro: no numbness, no tingl ing, no seizures Psychiatric: Psych: no suicidal thoughts, no homicidal thoughts Physical Exam ? General Adult Exam* Reported By: Patient Constitutional*: Level of Distress:* responsi ve in conversation*, mild distress*. Ambulation: ambulating reggie lly Psychiatric*: Mental Status* active & aler t*, normal affect*, normal mood* ENMT*: Hearing:* no hearing loss* Lungs*: Respiratory effort:* no dysp marcela* Neurologic*: Orientation:* to time*, to p lace*, to person*. Cranial Nerves:* articulate: coordinated maria *
--- OUTSIDE RECORDS SUMMARY | 2020-09-17 13:07 | XMS_ITS | Encounter Summary ---
:1995 Author Reason for Visit OUD - buprenorphine follow-up - weekly* Assessment and Plan Assessment Note Lab Results Last UDS Result (Qual Screen): 07/07/20 NEG Buprenorphine and POS for the following illicit drugs or EtOH: +fentanyl, +methadone Last Confirmatory Test Result (LCMS/Qu ant): PENDING Last Buprenorphine Confirmation Test Re sult: Bup: N/A ng/ml & Norbup: N/A ng/ml Last LFT Result : needs labs Since Last Visit THIS PT IS BEING TREATED FOR OUD WITH BU PRENORPHINE AND IS SEEN WEEKLY. CURRENT PRESCRIPTION IS: Suboxone 4mg fi lms - increasing today 07/13 to 8mg Bio/psycho/social Update: Matt is a 24y/o male with hx OUD, MDD, anxiety, insomnia on Suboxone 4mg daily OUD: Pt recently completed Suboxone chapo ction onto 4mg daily, UDS at initial visit pos for methadone and fentanyl. Reports he had just tried methadone, his regular use was about 10-20 bags fentanyl da donny. He reports continued fentanyl use s jenni induction but no further methadone use. He reports nightly w/d sxs (anxiety, swe ating, insomnia) and has been injecting heroin/fentanyl (2-3 bags nightly) to manage this. Feels that he needs to go up on his dose Reports having previously used 8-12mg da donny illicit Suboxone, and felt stable on this dose. Will increase to 8mg daily today 07/13 Initial visit: 07/07/20 Assessment The patient's current phase of treatment is Stabilization phase, OUD. 1) Interpretation of Confirmatory (LCMS) Test Result: PENDING 2) Interpretation of Last Buprenorphine Confirmation Test Result: N/A (new to care) 3) Medication Dose: Pt's dose will be ch anged at today's visit for the following reasons: continued w/d sxs, cravings, use 4) Markers of Recovery include: stable [...] NONE Plan OUD: Suboxone dose increased from 4mg to 8mg films. Patient's visit frequency should be week ly. Frequency of UDS and confirmatory test, if applicable, should be weekly. Treatment plan review or change includes continue current level of care. Referrals made today include none. Prescription monitoring program is revsun. If reviewed, I have identified agents prescribed [...] Appointments None ? ? recorded. Lab Drug 07/13/2020 [facility] Screen, Urine Referral None ? [...] recorded. Vitals None recorded. Results Lab Results Date Name Specimen Result Interpretation Description Value Range Status Address ? 07/13/2020 Drug UR ? Amphetamines negative 1,000 [address] [facility] Screen, NG/mL NG/mL Health: Urine [address], [place] ? ? UR ? Benzodiazapines negative 200 Final [facility] NG/mL NG/mL Health: [address], [place] ? ? UR ABNORMAL Buprenorphine negative 5 Final [facility] NG/mL NG/mL Health: [address], [place] ? ? UR ? Cocaine negative 150 Final [facility] Metabolite NG/mL NG/mL Health : [address], [place] ? ? UR ABNORMAL Opiates positive 300 Final [place] NG/mL NG/mL Health: [address], [place] ? ? UR ? Oxycodone negative 300 Final [place] NG/mL NG/mL Health: [address], [place] ? ? UR ABNORMAL Fentanyl positive 2 Final [facility] candido NG/mL NG/mL Health: [address], [place] ? ? UR ? Ethyl Alcohol negative 10 Final [facility] mg/dL mg/dL Health: [address], [place] ? ? UR ? Methadone negative 300 Final [place] Metabolite NG/mL NG/mL Health : [address], [place] ? ? UR ? Urine Creatinine 99.7 mg/dL 20 Fi nal [facility] mg/dL Health: [address], [place] ? ? UR ? Urine pH 9.00 4.5-9. Final [facility] 0 Health: [address], [place] ? ? UR ? Specific [place] 1.014 1.003- Final [facility] 1.035 Health: [address], [place] Allergies Code Code System Name Reaction Severity [...] per a day) *Legal Assistance Not required *[place] Not a *Custody of Dependent Children No [...] or disability Functional Status Unknown. Past Encounters 07/13/[address] [place]: [address] [place] [phone], Ph. 07/08/2020 Opioid Dependence Carmen De Paz [employer]: [address] [place] [address], Ph. 07/07/2020 Opioid Dependence; Opioid Withdrawal; Re stless Legs; Anxiety; Insomnia Carmen De Paz [employer]: [address] [place] [address], Ph. History of Present Illness Note: <p>The [...]
Withdrawal symptoms {{are* are not}} present (anxiety, sweating)

<strong>MAT Administration and Program Adherence</strong>
The patient [...] no na usea, no constipation Musculoskeletal: Musculoskeletal: no myalgia Neurological symptoms: Neuro: no headache Psychiatric: Psych: no depression, no str ess, anxiety, insomnia Physical Exam ? General Adult Exam* Reported By: Patient Constitutional*: General Presentation: health y-appearing, well-nourished, well-developed. Level of Dis tress:* no apparent distress (NAD)*, responsive in conversation*. Ambulation: ambulating normally Psychiatric*: Insight:* good judgement*. M abhishek:* recent memory normal*. Mental Status* active & alert*, nor mal affect*, normal mood* Head: Head: normocephalic, atrauma tic Eyes: Lids and Conjunctivae: non-i njected. Pupils: normal size. Sclerae: non-icteric ENMT*: Hearing:* no hearing loss* Lungs*: Respiratory effort:* no dysp marcela*, good air movement*, no audible wheezing* Musculoskeletal:: Joints, Bones, and Muscles: normal movement of all extremities Neurologic*: Orientation:* to time*, to p lace*, to person*. Gait and Station: normal gait. Cranial Nerves: * articulate: coordinated speech* Skin: Inspection and palpation: no jaundice
--- OUTSIDE RECORDS SUMMARY | 2020-09-17 13:07 | XMS_ITS | Encounter Summary ---
:1995 Author Reason for Visit OUD - initial visit*; MAT telemedicine* Assessment and Plan Assessment Note 24 Y/O MALE HERE TO START MAT DUE T O OUD. HAS TAKEN SUBOXONE OFF THE STREETS WITHOUT SE--WILL HAVE HIM RTC TOMORROW FOR SOFT INDUCTION. LAST USE: HEROIN, FENTANYL: LAST NIGHT A BOUT @[id number]--USED 2 BAGS IV; AVERAGE 2-3 BAGS Q D PAST MONTH, BUT DEPENDS ON FINANCES. WANTS TO GET BETTER FOR HIMSELF, BUT ALS O FOR HIS FIANCEE AND HIS 7 MONTH OLD CHILD. PLAN: RTC 07/09 FOR SOFT INDUCTION SUBOXONE 4 MG FILMS X 1 SENT TO PHARMACY CLONIDINE 0.1 MG 1 TAB PO BID X 7 DAYS F OR W/D S/S ROPINIROLE 0.25 MG 1 TAB PO TID X 7 DAYS FOR W/D S/S NEEDS LABS NEEDS COUNSELING The patient's current phase of treatment is Induction phase OUD. Assessment/Plan The patient does meet diagnostic criter ia for opioid dependence. Will proceed with MAT buprenorphine at recommended dose, see order. Referrals made today include substance abuse counseling. The patient accepts the suggested e-prescription of comfort medication. A urine drug screen is ordered, with co nfirmation if positive. See drug screen and medical necessity below. Initial lab studies ordered include HCG (female), CBC with differential, Comprehensive metabolic, Hepatic panel, coag, Hep B, C, and HIV. Education and counseling provided at [facility] Comprehensive Addiction Initial Assessment included: > The patient is counseled re short ter m goal of harm reduction and the snf goal of abstinence. > Education re risks and benefits of both MAT options: buprenorphine and naltrexone. > If proceeding with buprenorphine, prior to induction with buprenorphine patient is to abstain from short acting opioids 12-24 hours and long acting opioids 72 hours (methadone < 30 mg/day). > If proc eeding with naltrexone, prior to inducti on with naltrexone the patient is to abstain from any opioids 7-10 days and until provider has deemed UDS appropriate to proceed. > Reviewed Program Expectatio ns at length and medication assisted lupe atment options. > Education provided re best way to take medication. > Patient was instructed to bring RX bottle to every visit. > Education provided re common and serious side effects of bupre norphine and naltrexone. > Discussed safe keeping of RX including lock box. > Consents and contracts reviewed and signed with patient. > Discussed ration lana and requirement of psychotherapy to support recovery. > Reviewed process of UDS and random visit requirements. > Discussed the expectation for building trusting relationship to promote a succe ssful recovery. > Reviewed that diversio n or misuse of medication will not be tolerated and is cause for dismissal from the program. Prescription monitoring program is revi ewed. If reviewed, I have identified agents prescribed to the patient in addition to any issued by our program; the patient is counseled regarding any risk of combining sedating agents. Telemedicine Information: This telmed (audio + visual) appointmen t provided a MAT prescription. Time Start: 5; Time End:1445 Provider Location: REMOTE; Patient Loca tion: office Telemedicine Consent Given (verbal): Y The patient's current phase of treatmen t is Induction phase OUD. 1. Opioid dependence UNSTABLE; NEW PT ? CMP, serum or plasma ? CBC w/ diff ? gamma-glutamyl transferase (ggt), serum ? hepatitis A Ab, total, ser um ? HIV 1+2 Ab + HIV1 p24 Ag, QL, rapid, immunoassay, serum or plasma or blood ? drug screen, urine ? hepatitis B surface Ab, qu antitative, serum ? hepatitis B core Ab, total , serum ? HBsAg (hepatitis B surface Ag), serum ? hepatitis C Ab, quantitati ve, serum ? hepatitis C virus RNA, chris nt, PCR, serum or plasma - REFLEX ONLY IF HEP C AB IS POS ? hepatitis C virus genotype , PCR, blood - REFLEX ONLY IF HEP C VIRAL LOAD IS DETECTED ? buprenorphine 4 mg-naloxon e 1 mg sublingual film 2. Opioid withdrawal UNSTABLE/NEW PT 3. Restless legs UNSTABLE/NEW PT ? ropinirole 0.25 mg tablet 4. Anxiety UNSTABLE; NEW PT ? clonidine HCl 0.1 mg table t 5. Insomnia UNSTABLE; NEW PT Discussion Note Education provided [...] information available. Plan of Care Patient Instructions Abstain from opiates for 24 hours unless [...] Provider Appointments None recorded. ? ? Lab CMP, Serum or Nvr h Laboratory Plasma 07/07/2020 ? CBC W/ Diff [facility] 07/07/2020 ? Gamma-glutamyl [facility] Transferase (Ggt), Serum 07/07/2020 ? Hepatitis a [facility] Ab, Total, Serum 07/07/2020 ? HIV 1+2 Ab + [facility] HIV1 P24 Ag, QL, Rapid, 07/07/2020 Immunoassay, Serum or Plasma or Blood ? Drug Screen, [place] Urine 07/07/2020 ? Hepatitis B [facility] Surface Ab, 07/07/2020 Quantitative, Serum ? Hepatitis B [facility] Core Ab, Total, Serum 07/07/2020 ? HBsAg [facility] (Hepatitis B Surface 07/07/2020 Ag), Serum ? Hepatitis C [facility] Ab, Quantitative, Serum 07/07/2020 ? Hepatitis C [facility] Virus RNA, Quant, PCR, 07/07/2020 Serum or Plasma ? Hepatitis C [facility] Virus Genotype, PCR, 07/07/2020 Blood Referral None recorded. ? ? Procedures None [...] Interpretation Description Value Range Status Address ? 07/07/2020 Drug UR ? Amphetamines negative 1,000 [address] [place] Screen, NG/mL NG/mL Health: Urine [address], [place] ? ? UR ? Benzodiazapines negative 200 Final [place] NG/mL NG/mL Health: [address], [place] ? ? UR ABNORMAL Buprenorphine negative 5 Final [place] NG/mL NG/mL Health: [address], [place] ? ? UR ? Cocaine negative 150 Final [place] Metabolite NG/mL NG/mL Health : [address], [place] ? ? UR ? Opiates negative 300 Final [place] NG/mL NG/mL Health: [address], [place] ? ? UR ? Oxycodone negative 300 Final Sindy da NG/mL NG/mL Health: [address], [place] ? ? UR ABNORMAL Fentanyl positive 2 Final Reynaldo candido NG/mL NG/mL Health: [address], [place] ? ? UR ? Ethyl Alcohol negative 10 Final [place] mg/dL mg/dL Health: [address], [place] ? ? UR ABNORMAL Methadone positive 300 Final [place] Metabolite NG/mL NG/mL Health : [address], [place] ? ? UR ? Urine Creatinine 75.6 mg/dL 20 Fi nal [place] mg/dL Health: [address], [place] ? ? UR ? Urine pH 6.10 4.5-9. Final [place] 0 Health: [address], [place] ? ? UR ? Specific [place] 1.019 1.003- Final [place] 1.035 Health: [address], [place] Allergies Code Code System Name Reaction Severity [...] or disability Functional Status Unknown. Past Encounters 07/07/2020 Opioid Dependence; Opioid Withdrawal; Re stless Legs; Anxiety; Insomnia Carmen De Paz [employer]SEMBLER: [address] [place] [address], Ph. History of Present Illness Note: <p><strong>Initial MAT HPI</strong>
The patient presents today seeking outpatient treatment for {{opiate* alcohol both opiate and alcohol}} dependence.
Current readiness for treatment/stage of change is described as {{pre-contemplation contemplation preparation action* maintenance}}.
Onset of substance dependence, beginning with first substance used and all illicit and/or prescription abuse to date and including current substances: {{AGE 11 MJ; AGE 12: ALCOHOL; AGE 13: VICODIN (PILLS); AGE 16: HEROIN# CLICK TO FREE TEXT}}.
Current or most recent route of primary substance use is described as {{oral intranasal skin popping intravenous*}}.HEROIN, FENTANYL: LAST USE WAS LAST NIGHT ABOUT @[id number]--USED 2 BAGS Q D; AVERAGE 2-3 BAGS Q D PAST MONTH, BUT DEPENDS ON FINANCES.

The patient {{denies reports*}} a history of IV drug use.
The patient {{denies reports*}} a history of overdose. The patient {{denies reports*}} a history of witnessing an overdose.
The patient {{denies reports*}} having ever used or been prescribed Methadone. The patient's last exposure to Methadone was . ABOUT A WEEK AGO.ADVISED PT OF PRECIPITOUS WITHDRAWAL AND NOT TO TAKE ANY OPIATES OR BUP MAY CAUSE THIS. VOICED UNDERSTANDING.
The patient {{denies reports*}} having ever used or been prescribed Buprenorphine.The patient's last exposure to Buprenorphine was ABOUT A MONTH AGO, TOOK 6 MG, OFF THE STREET. HAS ONLY TAKEN OFF THE STREET BUP, BUT TOLERATED IT WITHOUT SE.

<strong>Attempts to stop including past and/or most recent:</strong>
> Inpatient detox: {{Y* N}}
> Residential and/or Sober Housing: {{Y N*}}
> Periods of sobriety during incarceration: {{Y N*}}
> Intensive Outpatient Program: {{Y* N}}< br>> Partial Hospitalization Program: {{Y N*}}
> Medication assisted treatment program(s): {{Y N*}}
Most successful program to date has been {{HAVING A CHILD# none methadone/OTP inpatient residential sober living buprenorphine bup+residential Vivitrol Vivitrol+residen tial incarceration}}.
The patient describes individual goals for substance dependence treatment as {{STOP USING, LIVE A HAPPY AND NORMAL LIFE.# CLICK TO FREE TEXT}}.RELAPSED ABOUT A MONTH AGO AFTER A YEAR AGO.</p> Review of Systems ? Comprehensive Adult Problem ROS Reported By: Patient Constitutional: Constitutional: normal activ ity level Cardiovascular: Cardiovascular: no chest allan n Respiratory: Respiratory: no cough Gastrointestinal: GI: no nausea, no vomiting, no diarrhea Musculoskeletal: Musculoskeletal: moves all e xtremities well Neurological symptoms: Neuro: no numbness, no tingl ing, no seizures Psychiatric: Psych: no suicidal thoughts, no homicidal thoughts, depression, anxiety; MILD Endocrine: Endocrine: ; SWEATY Physical Exam ? General Adult Exam* Reported By: Patient Constitutional*: General Presentation: well-d eveloped. Level of Distress:* no apparent distress (NAD)*, re sponsive in conversation*. Ambulation: ambulating normally Psychiatric*: Mental Status* active & aler t*, normal affect*, normal mood* ENMT*: Hearing:* no hearing loss* Lungs*: Respiratory effort:* no dysp marcela* Neurologic*: Orientation:* to time*, to p lace*, to person*. Cranial Nerves:* articulate: coordinated spee *
--- NOTE | 2020-09-17 13:17 | W.ED.GENAD ---
Discharge Plan Disposition Patient Disposition: HOME Condition: Good Discharge Details Clinical Impression: Laceration of finger, right Primary Care Provider: Galen Clemens ED Provider: Titus Wei Home Meds and New Rx's Prescriptions: Continued Narcan 4 mg/actuation spray,non-aerosol 4 mg NS DIRECTED Qty: 2 RF: 0 methadone 10 mg/mL Solution See Rx Instructions .ROUTE .COMPLEX RF: 0 Discharge Instructions Instructions: Care For Your Stitches (ED), Finger Laceration (ED) Additional Instructions: Do not directly soak the area. Watch for any signs of infection and return if any increasing redness, swelling, pain, drainage. Keep the area bandaged every day, do not pick at the sutures. Please return in 10 days to have the sutures removed. If you notice any worsening of your symptoms, or any new symptoms such as vomiting, diarrhea, fever, chills, shortness of breath, chest pain, numbness, weakness, or fainting , please return immediately to the emergency department for reevaluation. Please follow up with your primary care provider as soon as possible for reassessment and reevaluation. As always, it was a pleasure participating in your medical care today. Referrals: Galen Clemens [Primary Care Provider] - Discharge Data Discharge Date/Time-TO BE ENTERED AT DEPARTURE: 09/17/20 13:26 Medical Decision Making 24-year-old male who is right-hand dominant presents for laceration to his right pinky. Patient states that he was washing dishes, a glass cup fell, broke, and then cut his 5th finger. He admits to some tingling on the tip of his finger, he denies any other complaints. Tetanus is updated in 2016. No significant pain. Patient is able to move the finger. Physical exam demonstrates elliptical laceration on the medial aspect of the 5th digit, strength intact, tendon structures intact, movement intact. Capillary refill vascular exam intact. Sensation slightly diminished on the tip at about 6 mm two-point discrimination. 9 sutures were placed, patient tolerated this well. Discussed red flags which to return. I have extensively reviewed the treatment plan and discharge instructions with the patient. I have addressed all patient concerns at this time. The patient was made aware of what symptoms to monitor for that would warrant a return to the emergency department. Discussed the plan with the patient, they demonstrate verbal understanding and agreement with our assessment and plan at this time. The documentation in this chart was dictated using [employer] dictation software. Please excuse any dictation errors. HPI General Date/Time Provider Initiated Documentation: 09/17/20 13:17. HPI Narrative: 24-year-old male who is right-hand dominant presents for laceration to his right pinky. Patient states that he was washing dishes, a glass cup fell, broke, and then cut his 5th finger. He admits to some tingling on the tip of his finger, he denies any other complaints. Tetanus is updated in 2016. No significant pain. Patient is able to move the finger. Related Data Home Medications Medication Instructions Recorded Confirmed naloxone 4 mg/actuation nasal spray 4 mg NS DIRECTED #2 spray 02/13/19 09/17/20 methadone See Rx Instructions .ROUTE .COMPLEX 09/17/20 09/17/20 Previous Rx's Medication Instructions Recorded naloxone 4 mg/actuation nasal spray 4 mg NS DIRECTED #2 spray 02/13/19 Allergies Allergy/AdvReac Type Severity Reaction Status Date / Time No Known Allergies Allergy Verified 09/17/20 12:49 General Stated Complaint: Laceration MARTÍN: 3 Review of Systems All systems reviewed & are unremarkable except as noted in HPI and below [facility] Medical History Accidental overdose of heroin (09/24/17) Hepatitis C virus infection (~02/2018) Tooth infection Family History Mother Depression Grandfather Depression Heart disease Grandfather No problems noted. Grandmother Hyperlipidemia Grandmother Personal history of malignant neoplasm PANCREATIC Social History Smoking/Tobacco Use Status: Current every day Tobacco Type: cigarettes Smoking risk assessment performed?: Yes Alcohol Intake: former Drug use: Daily Substance use type: marijuana and opiates Details: fentanyl Caregiver/Support person: Yes (states mom (John) his strongest support person) Household members: family Current gender identity: male What type of physical activity do you participate in: none Seatbelt use: always Do you feel safe at home: Yes Do you feel safe in your relationship?: Yes Additional Social history: Narcan available at house Exam Narrative Exam Narrative: 1.Const: Well-nourished, Well-developed, appearing stated age 2.Eyes: PERRL, no conjunctival injection, and symmetrical lids. 3.ENT: Atraumatic external nose and ears. Moist MM. Neck: Symmetric, trachea midline, No thyromegaly. 4.CVS: +S1/S2, No murmurs or gallops. Peripheral pulses 2+ and equal in all extremities. Brisk capillary refill in all extremities. 5.RESP: Unlabored respiratory effort. Clear to auscultation bilaterally. No wheezes rales or rhonchi 6.GI: Soft, Nontender/Nondistended, No hepatosplenomegaly. No guarding or rebound. 7.MSK: Patient right hand 5th digit demonstrates an elliptical shaped laceration roughly 4 cm in total distance/leg on the medial aspect of the 5th digit. There are superficial with no tendon or bone involvement. Distal finger does demonstrate some tingling and reduced sensation, two-point discrimination present 6 mm. Capillary refill good and rest. Patient demonstrates good flexion and extension of 5th digit. Good abduction and adduction. 8.Skin: Warm, Dry. No rashes or lesions. 9.Neuro: information analyst II-XII grossly intact. Sensation grossly intact, no focal neurologic deficits. Please see musculoskeletal 10.Psych: (AAO) x3. Appropriate mood and affect Course Vital Signs Vital signs: Vital Signs Temperature 36.5 C 09/17/20 12:45 Pulse 80 09/17/20 12:45 Respiratory Rate 18 09/17/20 12:45 Blood Pressure 119/76 09/17/20 12:45 Pulse Oximetry 96 09/17/20 12:45 Temperature 36.5 C 09/17/20 12:45 Temperature Source Oral 09/17/20 12:45 Pulse 80 09/17/20 12:45 Respiratory Rate 18 09/17/20 12:45 Respiratory Effort Non-Labored 09/17/20 12:55 Blood Pressure 119/76 09/17/20 12:45 Blood Pressure Position Sitting 09/17/20 12:45 Pulse Oximetry 96 09/17/20 12:45 Oxygen Delivery Method Room Air 09/17/20 12:45 Oxygen Flow Rate 0 09/17/20 12:45 Pain Level 0 09/17/20 12:55 Procedures Laceration Laceration 1: Site: hand (50) Side (If applicable): right Size (cm): 4 Description: linear Depth: simple, single layer Local Anesthetic: Lidocaine 1% Amount of anesthesia used (mL): 3 Pre-repair: wound explored, irrigated extensively and deep structures intact Skin layer closed with: nylon Size (cm): 5-0 Number of sutures: 9 Technique: simple, interrupted
== END 2020-09-17 13:26 | disposition home or self-care (01) ==
PROVIDERS: Emergency Provider Student in an Organized Health Care Education/Training Program; PCP Family Medicine
DX: S61.216A Laceration without foreign body of right little finger without damage to nail, initial encounter (principal); W25.XXXA Contact with sharp glass, initial encounter
CPT/HCPCS: 12002

== ENCOUNTER 2020-11-30 01:26 | Outpatient (CLI) | payer MEDICAID, SELFPAY ==
--- NOTE | 2020-11-30 07:45 | RT.EKG_ITS ---
APPROVED REPORT Exam: Resting ECG Reason for Exam: high risk med Patient Location: O HR:68 bpm ECG Measurements Heart Rate 68 AXIS IA 175 P 58 QRSd 90 QRS 65 QT 380 T 38 QTc 405 Conclusion Sinus rhythm...normal P axis, V-rate 60- 99 ST elev, probable normal early repol pattern...ST elevation, age<55 Normal Electrocardiogram
== END 2020-11-30 01:27 | disposition home or self-care (01) ==
LOC: RT 01:26
PROVIDERS: PCP Family Medicine; Visit Provider Family Medicine
DX: Z51.81 Encounter for therapeutic drug level monitoring (principal)
CPT/HCPCS: 93005; 93010

== ENCOUNTER 2021-02-21 16:59 | Outpatient (REF) | payer MEDICAID, SELFPAY ==
[2021-02-21 19:02] LABS: Ferritin 152 ng/mL (26-388); Vitamin B12 576 pg/mL (193-986)
[2021-02-23 10:58] LABS: HIV-1/2 Ag & Ab Screen Negative (Negative)
[2021-02-23 14:55] LABS: HCV RNA Qualitative Undetected (Undetected)
== END 2021-02-21 17:00 | disposition home or self-care (01) ==
LOC: NCHCN 16:59
PROVIDERS: PCP Family Medicine; Visit Provider Family Medicine
DX: B19.20 Unspecified viral hepatitis C without hepatic coma (principal); D75.89 Other specified diseases of blood and blood-forming organs; G25.81 Restless legs syndrome; Z11.4 Encounter for screening for human immunodeficiency virus [HIV]
CPT/HCPCS: 87389; 87522; 82607; 82728

== ENCOUNTER 2021-03-27 09:56 | Emergency (ER) | payer MEDICAID, SELFPAY ==
[2021-03-27] VITALS (22 sets, daily range): BP systolic 105–127; BP diastolic 53–74; PULSE 65–100; RESP 11–22; TEMP 36.5; O2SAT 97–100
--- OUTSIDE RECORDS SUMMARY | 2021-03-27 10:03 | XMS_ITS ---
:1995 Author Care Team Providers Name Role Phone Maria Luisa Soot Primary Care Provider Unavailable Allergies Code Code [...] Screen, NG/mL Health: Urine [address], [place] ? ? UR ? Benzodiazapines negative NG/mL 200 Final [place] NG/mL Health: [address], [place] ? ? UR ABNORMAL Buprenorphine negative NG/mL 5 Final [place] NG/mL Health: [address], [place] ? ? UR ? Cocaine negative NG/mL 150 Final [place] Metabolite NG/mL Health : [address], [place] ? ? UR ABNORMAL Opiates positive NG/mL 300 Final [place] NG/mL Health: [address], [place] ? ? UR ? Oxycodone negative NG/mL 300 Final [place] NG/mL Health: [address], [place] ? ? UR ABNORMAL Fentanyl positive NG/mL 2 Ludmila l [place] NG/mL Health: [address], [place] ? ? UR ? Ethyl Alcohol negative mg/dL 10 F inal [place] mg/dL Health: [address], [place] ? ? UR ? Methadone negative NG/mL 300 Final [place] Metabolite NG/mL Health : [address], [place] ? ? UR ? Urine Creatinine 99.7 mg/dL 20 Fi nal [place] mg/dL Health: [address], [place] ? ? UR ? Urine pH 9.00 4.5-9. Final [place] 0 Health: [address], [place] ? ? UR ? Specific [place] 1.014 1.003- Final [place] 1.035 Health: [address] [place] 07/13/2020 Opiates, UR ? 6-Acetylmorphine negative NG/mL 10 Final [place] Quantita NG/mL Health: tive, 12 [address], [place] ? ? UR ? Codeine negative NG/mL 50 Final [place] NG/mL Health: [address], [place] ? ? UR ? Hydrocodone negative NG/mL 50 Fin al [place] NG/mL Health: [address], [place] ? ? UR ? Hydromorphone negative NG/mL 50 F inal [place] NG/mL Health: [address], [place] ? ? UR High Morphine 144 NG/mL 50 Final Sindy da NG/mL Health: [address], [place] ? ? UR ? Norhydrocodone negative NG/mL 100 Final [place] NG/mL Health: [address], [place] ? ? UR High Fentanyl 69 NG/mL 20 Final Savid a NG/mL Health: [address], [place] ? ? UR High Norfentanyl olr(>2000) 20 Final [place] NG/mL NG/mL Health: [address], [place] ? ? UR ? Tramadol negative NG/mL 100 Final [place] NG/mL Health: [address], [place] ? ? UR ? Legend abbreviations ? Final Sa joyce Health: [address], [place] ? ? UR ? Billing Only billing only ? Ludmila l [place] ([id number]) Health: [address] [place] 07/13/2020 Drug UR ABNORMAL Buprenorphine negative NG/mL 20 Final [place] Confirma NG/mL Health: tion, 12 [address]rine [address], [place] ? ? UR ABNORMAL Norbuprenorphine negative NG/mL 50 Final [place] NG/mL Health: [address], [place] ? ? UR ? Legend abbreviations ? Final Sa joyce Health: [address] [place] 07/07/2020 Drug UR ? Amphetamines negative NG/mL 1,000 Final [place] Screen, NG/mL Health: Urine [address], [place] ? ? UR ? Benzodiazapines negative NG/mL 200 Final [place] NG/mL Health: [address], [place] ? ? UR ABNORMAL Buprenorphine negative NG/mL 5 Final [place] NG/mL Health: [address], [place] ? ? UR ? Cocaine negative NG/mL 150 Final [place] Metabolite NG/mL Health : [address], [place] ? ? UR ? Opiates negative NG/mL 300 Final [place] NG/mL Health: [address], [place] ? ? UR ? Oxycodone negative NG/mL 300 Final [place] NG/mL Health: [address], [place] ? ? UR ABNORMAL Fentanyl positive NG/mL 2 Ludmila l [place] NG/mL Health: [address], [place] ? ? UR ? Ethyl Alcohol negative mg/dL 10 F inal [place] mg/dL Health: [address], [place] ? ? UR ABNORMAL Methadone positive NG/mL 300 Fin al [place] Metabolite NG/mL Health : [address], [place] ? ? UR ? Urine Creatinine 75.6 mg/dL 20 Fi nal [place] mg/dL Health: [address], [place] ? ? UR ? Urine pH 6.10 4.5-9. Final [place] 0 Health: [address], [place] ? ? UR ? Specific [place] 1.019 1.003- Final [place] 1.035 Health: 12 [address] [place] 07/07/2020 Drug UR ABNORMAL Buprenorphine negative NG/mL 20 Final [place] Confirma NG/mL Health: tion, 12 [address], [place] ? ? UR ABNORMAL Norbuprenorphine negative NG/mL 50 Final [place] NG/mL Health: [address], [place] ? ? UR ? 6-Acetylmorphine negative NG/mL 10 Final [place] NG/mL Health: [address], [place] ? ? UR ? Codeine negative NG/mL 50 Final [place] NG/mL Health: [address], [place] ? ? UR ? Hydrocodone negative NG/mL 50 Fin al [place] NG/mL Health: [address], [place] ? ? UR ? Hydromorphone negative NG/mL 50 F inal [place] NG/mL Health: [address], [place] ? ? UR ? Morphine negative NG/mL 50 Final [place] NG/mL Health: [address], [place] ? ? UR ? Norhydrocodone negative NG/mL 100 Final [place] NG/mL Health: [address], [place] ? ? UR ? Noroxycodone negative NG/mL 50 Fi nal [place] NG/mL Health: [address], [place] ? ? UR ? Oxycodone negative NG/mL 25 Final [place] NG/mL Health: [address], [place] ? ? UR ? Oxymorphone negative NG/mL 100 Fin al [place] NG/mL Health: [address], [place] ? ? UR High Fentanyl 307 NG/mL 20 Final Sindy da NG/mL Health: [address], [place] ? ? UR High Norfentanyl 1356 NG/mL 20 Final [place] NG/mL Health: [address], [place] ? ? UR ? Benzoylecgonine negative NG/mL 100 Final [place] NG/mL Health: [address], [place] ? ? UR ? Amphetamine negative NG/mL 250 Fin al [place] NG/mL Health: [address], [place] ? ? UR ? Methamphetamine negative NG/mL 250 Final [place] NG/mL Health: [address], [place] ? ? UR ? Mda negative NG/mL 250 Final Sa joyce NG/mL Health: [address], [place] ? ? UR ? Alpha-hydroxyalp negative NG/mL 25 Final [place] razolam NG/mL Health: [address], [place] ? ? UR ? 7-Aminoclonazepa negative NG/mL 40 Final [place] m NG/mL Health: [address], [place] ? ? UR ? Diazepam negative NG/mL 50 Final [place] NG/mL Health: [address], [place] ? ? UR ? Lorazepam negative NG/mL 50 Final [place] NG/mL Health: [address], [place] ? ? UR ? Nordiazepam negative NG/mL 50 Fin al [place] NG/mL Health: [address], [place] ? ? UR ? Temazepam negative NG/mL 50 Final [place] NG/mL Health: [address], [place] ? ? UR High Methadone olr(>4000) 250 Final Sa joyce NG/mL NG/mL Health: [address], [place] ? ? UR High Eddp olr(>4000) 100 Final [place] NG/mL NG/mL Health: [address], [place] ? ? UR ? Normeperidine negative NG/mL 100 F inal [place] NG/mL Health: [address], [place] ? ? UR ? Tramadol negative NG/mL 100 Final [place] NG/mL Health: [address], [place] ? ? UR ? Legend abbreviations ? Final Sa joyce Health: [address], [place] Past Encounters 07/20/[address] [facility]: [address] [place] [phone], Ph. 07/13/[address] [facility]: [address] [place] [address], Ph. 07/08/2020 Opioid Dependence Carmen De Paz ELECTRICAL LOGGING ENGINEER: [address] [facility], [place] [address], Ph. 07/07/2020 Opioid Dependence; Opioid Withdrawal; Re stless Legs; Anxiety; Insomnia Carmen De Paz [employer]LECTRICAL LOGGING ENGINEER: [address] [facility], [place] [address], Ph. Social History Tobacco Smoking Status Heavy Tobacco Smoker (2 packs per day ) Vaccine List None recorded. Plan of Care [...]
--- OUTSIDE RECORDS SUMMARY | 2021-03-27 10:03 | XMS_ITS ---
:1995 Author Care Team Providers Name Role Phone Maria Luisa Soto Primary Care Provider Unavailable Allergies None recorded. Medications Name Status Start Date Stop Date [...] Date Source ? Opioid Withdrawal Active 07/07/2020 History Anxiety Active 07/07/2020 History Opioid Dependence Active 07/07/2020 History Insomnia Active 07/07/2020 History Restless Legs Active 07/07/2020 History History of Depression Active 07/07/2020 History Procedures None recorded. Results Lab Results None recorded. Past Encounters 07/20/2020 [facility]: [address] [place] [address], Ph. 07/13/2020 [facility]: [address] [place] [address], Ph. 07/08/2020 Carmen De Paz COMMUNICATIONS ASSOCIATE: [address] [place] [phone], Ph. 07/07/2020 Carmen De Paz COMMUNICATIONS ASSOCIATE: [address] [place] [address], Ph. Social History None recorded. Vaccine List None recorded. Plan of Care Reminders Provider Appointments None ? ? recorded. Lab None ? ? recorded. Referral None ? ? recorded. Procedures None ? ? recorded. Surgeries None ? ? recorded. Imaging None ? ? recorded. Vitals None recorded.
--- NOTE | 2021-03-27 10:15 | DI.CT_ITS ---
Exam(s) CT HEAD WO EXAM: CT HEAD WO CLINICAL HISTORY: Seizure activity. TECHNIQUE: Imaging Protocol: Axial computed tomography images with coronal and sagittal reformatted images were created and reviewed COMPARISON: No exams were available for comparison FINDINGS: There are no skull fractures nor fluid in the visualized paranasal sinuses. There is no evidence of intracranial hemorrhage, mass effect, or shift of midline structures. There are no extra-axial fluid collections. The ventricles are not enlarged or shifted and there is no blo od within the ventricular system nor within the basal cisterns. IMPRESSION: No acute intracranial findings on this noninfused CT scan of the brain. RADIATION DOSE DELIVERED: 748.8mGy.cm Total DLP DATA REPOSITORY: All CT scans at this facility are submitted to the National Radiology Data Registry (NRDR) Dose Index Registry (DIR) with the [employer] (ACR). RADIATION OPTIMIZATION: All CT scans at this facility use at least one of these dose optimization te chniques: automated exposure control; mA and/or kV adjustment per patient size (includes targeted exa ms where dose is matched to clinical indication); or iterative reconstruction.
--- NOTE | 2021-03-27 10:15 | RT.EKG_ITS ---
APPROVED REPORT Exam: Resting ECG Reason for Exam: Seizure Patient Location: E HR:79 bpm ECG Measurements Heart Rate 79 AXIS AL 172 P 67 QRSd 93 QRS 68 QT 355 T 36 QTc 408 Conclusion Sinus rhythm...normal P axis, V-rate 60- 99 ST elev, probable normal early repol pattern...ST elevation, age<55. Sinus. Normal axis. No STEMI. I have reviewed and interpreted ECG and agree with software generated interpretation.
--- NOTE | 2021-03-27 10:23 | ED.GENADUL_ITS ---
Discharge Plan Disposition Patient Disposition: HOME Condition: Stable Discharge Details Clinical Impression: Observed seizure-like activity Primary Care Provider: Galen Clemens ED Provider: Jovon Kaiser Home Meds and New Rx's Prescriptions: New levetiracetam [Keppra] 500 mg tablet 500 mg PO BID 14 Days Qty: 28 0RF Continued naloxone [Narcan] 4 mg/actuation spray,non-aerosol 4 mg NS DIRECTED Qty: 2 0RF Rx Instructions: One spray (4mg) intranasally into one nostril. Use a new nasal spray for subsequent dose in alternate nostril if needed. May repeat once after initial dose in 2-3 minutes. methadone 10 mg/mL Solution See Rx Instructions .ROUTE .COMPLEX 0RF Rx Instructions: 120mg PO daily Discharge Instructions Instructions: New-Onset Seizure in Adults (ED) Additional Instructions: Your evaluation in the ER does not reveal any obvious emergent process and you are feeling asymptomatic. I consulted with our neurology team, Dr. Hamilton and she recommended initiating Keppra therapy. First dose given here in the ER and I have given you a prescription for the next 14 days. Please contact her office on Sunday to set up outpatient follow-up. I have placed you on the care management list to help expedite this process. Watch for new or worsening symptoms and return to the ER for any concern Referrals: Alfreda Hamilton MD [ [facility] STAFF PHYSICIAN] - Discharge Data Discharge Date/Time-TO BE ENTERED AT DEPARTURE: 03/27/21 12:43 Medical Decision Making This is a 25-year-old male, currently on methadone, reports being clean for the past year, denies any other significant past medical history, presents to the ER via EMS for evaluation of witnessed seizure-like activity. Has apparently happened once before, roughly 1 month ago. He states the episodes are in correspondence with arguments with his . He is not postictal, denies biting his tongue or any incontinence. He is currently asymptomatic. He appears well, nontoxic and neurologically intact. Plan is to obtain IV access, laboratory values and a CT of his brain Laboratory values did not reveal any obvious emergent process. Minimal nonspecific leukocytosis of 10.87, electrolytes unremarkable, renal function normal. Troponin less than 50. TSH normal at 0.87. Urine reveals no signs of infection but is positive for opiates, methadone, THC. His alcohol level is less than 3. Patient remains asymptomatic and is neurologically intact. CT imaging is unremarkable Case discussed with Dr. Hamilton, neurology. She recommends giving initial dose now of 1000 Keppra, prescription of Keppra 500 mg twice daily, and she will be happy to evaluate the patient as an outpatient and work him up for his seizure-like activity. This was relayed to the patient who is agreeable. He has no additional questions or concerns. He was medicated now and a prescription was provided. He remains asymptomatic and neurologically intact. Strict discharge and return precautions were provided This documentation was generated using Narvalousation system, please disregard any oddities of phrase or misspellings. Medical Records Medical records reviewed: Yes I reviewed the patient's medical records. Imaging Data Radiologic Study: Attestation: I personally reviewed and interpreted this imaging study as follows: Imaging: CT Scan Radiologist's impression: PROCEDURE INFORMATION: Exam: CT Head Without Contrast Exam date and time: 03/27/2021 10:21 AM Age: 25 years old Clinical indication: Other: Seizure activi ty TECHNIQUE: Imaging protocol: Computed tomography of the head without contrast. COMPARISON: No relevant prior studies available. FINDINGS: Brain: Normal. No hemorrhage. Unremarkable white matter. No mass effect. Cerebral ventricles: No ventriculomegaly. Paranasal sinuses: Mild frontal and ethmoid sinus mucosal thickening. No fluid levels. Mastoid air cells: Visualized mastoid air cells are well aerated. Bones/joints: Unremarkable. No acute fracture. Soft tissues: Unremarkable. IMPRESSION: No acute intracranial abnormality ECG Data Attestation: I personally reviewed and interpreted this ECG (s) as follows: Interpretation: Please see official report by Dr. Engle. Sinus rhythm, ventricular rate 79. ST elevation, probably early repolarization. HPI General Mode of arrival: EMS . Date/Time Provider Initiated Documentation: 03/27/21 10:10 . Limitations to Documentation: no limitations . Information obtained by: patient and EMS . HPI Narrative: This is a 25-year-old gentleman, reports past medical history of heroin use, reports being clean for 1 year, on methadone now, presenting to the ER via EMS for what is described as seizure activity. He reports just prior to arrival he was having an argument with his , does not recall the events, was told that he fell to the ground but did not have any injury, and then had a full body seizure that lasted for no longer than 1 minute. He presents to the ER via EMS asymptomatic. He denies recent illness or trauma, headache, visual changes, neck pain, fever, chest pain, shortness of breath, biting of his tongue, bowel or bladder incontinence, numbness, tingling, focal or general weakness. Patient reports that 1 month ago she had an argument with his , about 20 minutes later he was walking out of the restroom when he bumped his head, tells me that he subsequently he had a seizure then to but never sought any medical attention. Is unaware of any epilepsy that runs in his family. He tells me that during other episodes of arguing with his significant other he has felt lightheaded like he could pass out but never has and has never had a seizure other than these 2 episodes Related Data Home Medications Medication Instructions Recorded Confirmed naloxone 4 mg/actuation nasal 4 mg NS DIRECTED #2 spray 02/13/19 03/27/21 spray (Narcan) methadone 10 mg/mL injection See Rx Instructions .ROUTE .COMPLEX 09/17/20 03/27/21 solution levetiracetam 500 mg tablet 500 mg PO BID 14 Days #28 tab 03/27/21 (Keppra) Previous Rx's Medication Instructions Recorded naloxone 4 mg/actuation nasal 4 mg NS DIRECTED #2 spray 02/13/19 spray (Narcan) levetiracetam 500 mg tablet 500 mg PO BID 14 Days #28 tab 03/27/21 (Keppra) Allergies Allergy/AdvReac Type Severity Reaction Status Date / Time No Known Allergies Allergy Verified 03/27/21 10:09 General Stated Complaint: Seizure MARTÍN: 2 Review of Systems Constitutional Constitutional: Denies fatigue, Denies fever(s) and Denies headache(s) Eyes Eyes: Denies change in vision ENT Ears, Nose, Mouth, and Throat: Denies headache(s) and Denies neck pain Cardiovascular Cardiovascular: Denies chest pain and Denies dyspnea Respiratory Respiratory: Denies dyspnea Gastrointestinal Gastrointestinal: Denies abdominal pain, Denies nausea and Denies vomiting Genitourinary Genitourinary: Denies urinary incontinence Musculoskeletal Musculoskeletal: Denies neck pain, Denies numbness and Denies tingling Integumentary/Breasts Skin/Breast: Denies rash Neurologic Neurologic: Denies headache(s), Denies numbness and Denies tingling Endocrine Endocrine: Denies fatigue Hematologic/Lymphatic Hematologic/Lymphatic: Denies easy bleeding and Denies easy bruising PFSH All Active Problems Depression (Chronic) Laceration of finger, right (Acute) Observed seizure-like activity (Acute) Tooth infection (Acute) Hepatitis C virus infection (Acute ~02/2018) Infected finger (Acute) Heroin abuse (Chronic) As above. Reflecting on relapse he identifies the need to not be isolated and not let himself get bored. That is when he is tempted to use. He plans to move in to his own apartment Reactive depression (situational) (Acute 06/03/13) Accidental overdose of heroin (Acute 09/24/17) Smoker (Acute 08/02/17) Depression with anxiety (Acute 05/07/15) Taking Wellbutrin 300mg QD. Significant help with depression, moderate help with anxiety. Denies SI. Has graduated from intense 6 week outpatient program. Continues to see drug and alcohol counselor x1 each week. Working 40 hours Sun- at a [employer], 30+ hours at [employer] Sunday- Sunday. Admits to 1 relapse during his 6 week program. Congratulated in completing the program. Encouraged to continue with therapy and be proactive in his continued recovery. F/U 2 weeks. ADHD (attention deficit hyperactivity disorder) (Acute 09/21/15) Family History Mother Depression Grandfather Depression Heart disease Grandfather No problems noted. Grandmother Hyperlipidemia Grandmother Personal history of malignant neoplasm PANCREATIC Social History Smoking/Tobacco Use Status: Current every day Tobacco Type: cigarettes Smoking risk assessment performed?: Yes Alcohol Intake: current Alcohol Intake frequency: a few times a month Drug use: Daily Substance use type: marijuana Details: 1 year since last opiate use Caregiver/Support person: Yes (states mom (John) his strongest support person) Household members: family Current gender identity: male What type of physical activity do you participate in: none Seatbelt use: always Do you feel safe at home: Yes Do you feel safe in your relationship?: Yes Exam Const General: cooperative, healthy appearing, comfortable and no acute distress Orientation: alert, awake and oriented x3 HENMT Head: normal to inspection, normocephalic and atraumatic Mouth: moist mucous membranes Eyes General: appearance normal, both eyes and all related structures Conjunctivae: conjunctivae normal Neck Neck: normal visual inspection, full ROM, trachea midline, supple and nontender Resp Effort & Inspection: normal respiratory effort and able to speak in complete sentences Auscultation: clear to auscultation bilaterally Cardio Rate: regular rate Rhythm: regular rhythm GI Inspection: normal to inspection Palpation: soft and nontender Back/Spine/Pelvis Back: No back tenderness Skin Rashes: no rashes Other: What appears to be track rosado on his right forearm near his antecubital region Neuro General: patient alert, patient awake, patient oriented x3, moves all extremities and no focal motor deficits Cognition: normal cognition Speech: speech normal Gait: normal gait Motor: muscle tone normal throughout, strength 5/5 throughout, no movement abnormalities noted and no fasciculations Sensory Exam: no sensory deficits noted Extrem General: normal to inspection, full ROM and capillary refill normal Psych Appearance: grossly normal Mental Status: mental status grossly normal Course Vital Signs Vital signs: Vital Signs Temperature 36.5 C 03/27/21 09:57 Pulse 98 H 03/27/21 09:57 Respiratory Rate 14 03/27/21 09:57 Blood Pressure 127/63 03/27/21 09:57 Pulse Oximetry 97 03/27/21 09:57 Temperature 36.5 C 03/27/21 09:57 Temperature Source Temporal Artery Scan 03/27/21 09:57 Pulse 98 H 03/27/21 09:57 Respiratory Rate 14 03/27/21 09:57 Respiratory Effort Non-Labored 03/27/21 10:06 Respiratory Depth Normal 03/27/21 10:06 Respiratory Pattern Normal 03/27/21 10:06 Blood Pressure 127/63 03/27/21 09:57 Pulse Oximetry 97 03/27/21 09:57 Oxygen Delivery Method Room Air 03/27/21 09:57 Oxygen Flow Rate 0 03/27/21 09:57 PAWSS Have you Been Recently Intoxicated or Drunk Within the Last 30 days?: No Have you Ever Experienced Previous Episodes of Alcohol Withdrawal?: No Have you ever Experienced Withdrawal Seizures?: No Have you ever Experienced Delirium Tremens(DT)s?: No Have you ever undergone Alcohol Rehabilitation Treatment (i.e, inpt ot outpatient treatment programs)?: No Have you ever Experienced Blackouts?: No Have you ever Combined Alcohol with other Downers within the last 90 days?: No Have you ever Combined Alcohol with any other Substance of Abuse during the last 90 days?: No Evidence of Increased Autonomic Activity (i.e. HR>120, tremor, sweating, agitation, nausea)?: No Result: 0
[2021-03-27] MEDS: Normal Saline 1,000 ML 1000 ML IV (10:25)
[2021-03-27 10:28] LABS: Abs Immature Grans 0.03 10^3/uL (0.0-0.06); Absolute Basophil Count 0.04 10^3/uL (0.0-0.2); Absolute Lymphocyte Count 2.38 10^3/uL (1.2-3.4); Basophils % 0.4; Eosinophils % 2.8; HCT 42.1 % (40.0-50.0); HGB 13.6 g/dL (13.5-17.5); Immature Grans % 0.3; Lymphocytes % 21.9; MCH 28.9 pg (27.0-33.0); MCHC 32.3 % (32.0-36.0); MCV 89.4 fL (80-95); MPV 10.1 fL (8.0-11.0); Monocytes % 4.6; Nucleated RBC 0 %; Platelet Count 275 10^3/uL (130-400); RBC 4.71 10^6/uL (4.36-5.78); RDW-SD 45.9 fL; WBC 10.87 10^3/uL (4.4-10.8)
[2021-03-27 10:35] LABS: Absolute Neutrophil Count 7.61 10^3/uL (1.2-6.7)
[2021-03-27 10:50] LABS: ALT 15 U/L (16-63); AST 17 U/L (15-37); Alkaline Phosphatase 41 U/L (46-116); Anion Gap 9.8 mmol/L (3-11); BUN 16 mg/dL (7-18); Bilirubin, Total 0.6 mg/dL (0.2-1.0); CO2 25.2 mmol/L (21.0-32.0); CREATININE 0.9 mg/dL (0.70-1.30); Calcium 9.2 mg/dL (8.5-10.1); Chloride 104 mmol/L (98-107); Glucose 100 mg/dL (74-106); Lipase 31 U/L (73-393); Magnesium 1.9 mg/dL (1.8-2.4); Potassium 4.2 mmol/L (3.5-5.1); Sodium 139 mmol/L (136-145); TSH (W/Ref FT4) 0.87 uIU/mL (0.36-3.74); Total Protein 7.8 g/dL (6.4-8.2)
[2021-03-27 10:51] LABS: *AMPHETAMINES SCREEN URINE Negative (Negative); *BARBITURATES SCREEN URINE Negative (Negative); *BENZODIAZEPINES SCREEN URINE Negative (Negative); Cannabinoids THC Positive (Negative); Cocaine Screen,Urine Negative (Negative); METHADONE URINE SCREEN Positive (Negative); OPIATES URINE SCREEN Positive (Negative)
[2021-03-27 10:51] LABS: ETHANOL BLOOD < 3.0 mg/dL (<10)
[2021-03-27 10:52] LABS: Tricyclic Antidepressants Negative (Negative)
[2021-03-27 10:55] LABS: Bilirubin Negative (Negative); Blood Negative (Negative); Clarity Clear (Clear); Glucose Negative (Negative); Ketones Negative (Negative); Leukocyte Esterase Negative (Negative); Nitrite Negative (Negative); Specific Gravity >= 1.030 (1.005-1.025); Urobilinogen 0.2 EU/dL (Up TO 0.2)
--- NOTE | 2021-03-27 11:23 | DI.VRAD_ITS ---
PROCEDURE INFORMATION: Exam: CT Head Without Contrast Exam date and time: 03/27/2021 10:21 AM Age: 25 years old Clinical indication: Other: Seizure activity TECHNIQUE: Imaging protocol: Computed tomography of the head without contrast. COMPARISON: No relevant prior studies available. FINDINGS: Brain: Normal. No hemorrhage. Unremarkable white matter. No mass effect. Cerebral ventricles: No ventriculomegaly. Paranasal sinuses: Mild frontal and ethmoid sinus mucosal thickening. No fluid levels. Mastoid air cells: Visualized mastoid air cells are well aerated. Bones/joints: Unremarkable. No acute fracture. Soft tissues: Unremarkable. IMPRESSION: No acute intracranial abnormality. Dictated and Authenticated by: Galen Swanson MD. Ordering:TIESHA Sigala MD
[2021-03-27] MEDS: levETIRAcetam 250 MG TAB 1000 MG PO (12:01)
--- NOTE | 2021-03-27 12:04 | NUR.NOTE ---
Nursing Note: Referral faxed to [facility] Neurology for follow up of seizure in [address] Duffy consulted today about this patient. Abril Resendez
[2021-03-27 12:09] LABS: Troponin I < 50 ng/L (<or=60)
--- NOTE | 2021-04-01 09:49 | ED.FU.B_ITS ---
Follow Up Plan: Patient called ED today, 2148, has not been taking [facility] New prescription for 14-day supply was transmitted to [facility] [place]
== END 2021-03-27 12:43 | disposition home or self-care (01) ==
PROVIDERS: Emergency Provider Physician Assistant; PCP Family Medicine
DX: R56.9 Unspecified convulsions (principal); F11.20 Opioid dependence, uncomplicated
CPT/HCPCS: 36415; 80053; 80307; 83690; 93005; 96360; 99284; 70450; 80320; 81003; 83735; 84443; 84484; 85025; 93010

== ENCOUNTER 2021-08-24 06:31 | Emergency (ER) | payer MEDICAID, SELFPAY ==
--- NOTE | 2021-08-24 06:39 | ED.GENADUL_ITS ---
Discharge Plan Disposition Patient Disposition: STILL A PATIENT Condition: Stable Discharge Details Clinical Impression: Dental infection, Lymphadenopathy Primary Care Provider: Galen Clemens ED Provider: Gilson Alonso Home Meds and New Rx's Prescriptions: New amoxicillin-pot clavulanate 875-125 mg tablet 1 tab PO BID Qty: 28 0RF Continued naloxone [Narcan] 4 mg/actuation spray,non-aerosol 4 mg NS DIRECTED Qty: 2 0RF Rx Instructions: One spray (4mg) intranasally into one nostril. Use a new nasal spray for subsequent dose in alternate nostril if needed. May repeat once after initial dose in 2-3 minutes. methadone 10 mg/mL Solution See Rx Instructions .ROUTE .COMPLEX Rx Instructions: 120mg PO daily Discontinued levetiracetam [Keppra] 500 mg tablet 500 mg PO BID Qty: 28 0RF Discharge Instructions Instructions: Dental Abscess (ED) Additional Instructions: Please take full course of antibiotic as prescribed. Please follow-up with your dentist. Call today to arrange timely follow-up. Return to the emergency department immediately for any worsening or new concerning symptoms including increased swelling or difficulty swallowing. Referrals: Galen Clemens [Primary Care Provider] - Discharge Data Discharge Date/Time-TO BE ENTERED AT DEPARTURE: 08/24/21 10:30 Medical Decision Making Patient presenting with dental decay, swelling and tenderness to the floor of the mouth, difficulty swallowing and speaking because of swelling but no difficulty breathing. Consider Matheus angina so IV placed and abx ordered. Labs and CT obtained. Signed out to oncoming physician, Dr. Alonso. HPI General Mode of arrival: ambulatory . Date/Time Provider Initiated Documentation: 08/24/21 06:37 . Limitations to Documentation: no limitations . Information obtained by: patient and RN notes reviewed . HPI Narrative: Patient presents to ED with pain and swelling under his tongue. First noticed it over the weekend. Denies fever or chills. Has difficulty talking and swallowing because of the swelling. Denies any difficulty breathing. Has history of dental infections and multiple previous teeth extracted. He denies having chest pain, neck pain, vomiting, facial pain or swelling. Related Data Home Medications Medication Instructions Recorded Confirmed naloxone 4 mg/actuation nasal 4 mg NS DIRECTED #2 sprays 02/13/19 08/24/21 spray (Narcan) methadone 10 mg/mL injection See Rx Instructions .Route .COMPLEX 09/17/20 08/24/21 solution amoxicillin 875 mg-potassium 1 tab PO BID #28 tabs 08/24/21 clavulanate 125 mg tablet Previous Rx's Medication Instructions Recorded naloxone 4 mg/actuation nasal 4 mg NS DIRECTED #2 sprays 02/13/19 spray (Narcan) amoxicillin 875 mg-potassium 1 tab PO BID #28 tabs 08/24/21 clavulanate 125 mg tablet Allergies Allergy/AdvReac Type Severity Reaction Status Date / Time No Known Allergies Allergy Verified 08/24/21 06:42 General MARTÍN: 2 Review of Systems Narrative: 11/18 Review of Systems completed and is negative except as stated above in HPI (Systems reviewed: Const, Eyes, ENT, Resp, CV, GI, , MSK, Skin, Neuro) PFSH All Active Problems (Updated 08/24/21 @ 09:45 by Gilson Alonso MD) Dental infection (Acute) Lymphadenopathy (Acute) Depression (Chronic) Laceration of finger, right (Acute) Tooth infection (Acute) Infected finger (Acute) Heroin abuse (Chronic) As above. Reflecting on relapse he identifies the need to not be isolated and not let himself get bored. That is when he is tempted to use. He plans to move in to his own apartment Reactive depression (situational) (Acute 06/03/13) Accidental overdose of heroin (Acute 09/24/17) Smoker (Acute 08/02/17) Depression with anxiety (Acute 05/07/15) Taking Wellbutrin 300mg QD. Significant help with depression, moderate help with anxiety. Shahriar GODINEZ. Has graduated from intense 6 week outpatient program. Continues to see drug and alcohol counselor x1 each week. Working 40 hours Sun- at a [employer], 30+ hours at [employer] Sunday- Sunday. Admits to 1 relapse during his 6 week program. Congratulated in completing the program. Encouraged to continue with therapy and be proactive in his continued recovery. F/U 2 weeks. Medical History ADHD (attention deficit hyperactivity disorder) (09/21/15) Hepatitis C virus infection (~02/2018) Family History Mother Depression Grandfather Depression Heart disease Grandfather No problems noted. Grandmother Hyperlipidemia Grandmother Personal history of malignant neoplasm PANCREATIC Social History Smoking/Tobacco Use Status: Current every day Tobacco Type: cigarettes Smoking risk assessment performed?: Yes Alcohol Intake: current Alcohol Intake frequency: a few times a month Drug use: Daily Substance use type: marijuana Details: 1 year since last opiate use. Still uses marijuana daily. Caregiver/Support person: Yes (states mom (John) his strongest support person) Household members: family Current gender identity: male What type of physical activity do you participate in: none Seatbelt use: always Do you feel safe at home: Yes Do you feel safe in your relationship?: Yes Exam Narrative Exam Narrative: Const: WDWN male in NAD. HEENT: NC/AT. Normal facial exam. Left lower lateral incisor and canine with decay. No obvious dental abscess. Floor of mouth raised on left side with tenderness but no fluctuance. Tongue itself normal. Skin under the chin normal without erythema. Tender and firm under chin. Eyes: Normal conjunctiva and sclera. Neck: Supple. Trachea midline. Anterior lymph nodes mildly swollen. No st ridor. Lungs: Normal respiratory effort. Cor: RRR. Good radial pulses. GI: Soft. ND. Neuro: A+O x 3. Cranial nerves II - XII grossly intact. No gross motor or sensory deficit. Ext: No C/C/E. Skin: Warm and dry without rash. Sign Out Sign Out Data: Sign Out Comment: Pending labs and CT scan to evaluate for possible Matheus angina. No airway compromise at this time. Last updated by Laci Carlos MD at 08/24/21 07:15
[2021-08-24 06:40] VITALS: BP 125/70; PULSE 91; RESP 14; TEMP 36.2; O2SAT 96
[2021-08-24 07:27] LABS: Abs Immature Grans 0.04 10^3/uL (0.0-0.06); Absolute Basophil Count 0.04 10^3/uL (0.0-0.2); Absolute Eosinophil Count 0.23 10^3/uL (0.0-0.7); Absolute Lymphocyte Count 2.67 10^3/uL (1.2-3.4); Absolute Monocyte Count 0.76 10^3/uL (0.1-0.8); Absolute Neutrophil Count 7.03 10^3/uL (1.2-6.7); Basophils % 0.4; Eosinophils % 2.1; HCT 42.5 % (40.0-50.0); HGB 13.7 g/dL (13.5-17.5); Immature Grans % 0.4; Lymphocytes % 24.8; MCHC 32.2 % (32.0-36.0); MCV 90 fL (80-95); MPV 10.3 fL (8.0-11.0); Monocytes % 7.1; Neutrophils % 65.2; Platelet Count 252 10^3/uL (130-400); RBC 4.73 10^6/uL (4.36-5.78); RDW 14.2 % (11.8-14.1); RDW-SD 47.4 fL; WBC 10.77 10^3/uL (4.4-10.8)
[2021-08-24] MEDS: AMPICILLIN/SULBACTAM 3 GM in Normal Saline 100 ML IVPB (07:35)
[2021-08-24] MEDS: Ketorolac 30 MG/ML VIAL IVP (07:35)
[2021-08-24 07:36] LABS: Anion Gap 7.3 mmol/L (3-11); BUN 21 mg/dL (7-18); CO2 28.7 mmol/L (21.0-32.0); Calcium 9.7 mg/dL (8.5-10.1); Chloride 103 mmol/L (98-107); Glucose 91 mg/dL (74-106); Potassium 4.1 mmol/L (3.5-5.1); Sodium 139 mmol/L (136-145)
--- NOTE | 2021-08-24 07:46 | DI.CT_ITS ---
Exam(s) CT NECK W EXAM: CT NECK W CLINICAL HISTORY: swelling, pain floor of mouth. TECHNIQUE: Imaging Protocol: Axial computed tomography images with coronal and sagittal reformatted images were created and reviewed CONTRAST MATERIAL: Intravenous: Omnipaque 350 Contrast volume:100 ml contrast route:IV - Oral: no COMPARISON: No exams were available for comparison FINDINGS: Parotids/submandibular/thyroid gland: Normal. Lymphadenopathy: Mildly enlarged lymph node anterior to left submandibular gland, measuring 13 millim eters. There are scattered lymph nodes seen along the level one to level three all measuring less garth n 8 mm in short axis diameter which are physiologic in nature. Carotids/Jugular: Within normal limits. Soft tissues: The floor the mouth is unremarkable. No visible abscess. The epiglottis and vocal cords are within normal limits. Images through both lung apices are unremarkable. Azygos lobe, normal variant. Bones: The mandible and teeth are only partially included in the field of view. Dental caries abnorma l lucencies are associated with a right upper mandible. Multiple dental extractions are noted from th e mandible. The cervical spine is unremarkable. Sinuses: Only partially visualized. Mild mucous retention right maxillary sinus and ethmoid sinuses. IMPRESSION: No evidence of abscess. 13 millimeter lymph node adjacent to left submandibular gland. Dental disease . Mandible and maxilla not fully included on exam. RADIATION DOSE DELIVERED: 295.92mGy.cm Total DLP DATA REPOSITORY: All CT scans at this facility are submitted to the National Radiology Data Registry (NRDR) Dose Index Registry (DIR) with the [employer] (ACR). RADIATION OPTIMIZATION: All CT scans at this facility use at least one of these dose optimization te chniques: automated exposure control; mA and/or kV adjustment per patient size (includes targeted exa ms where dose is matched to clinical indication); or iterative reconstruction.
[2021-08-24] MEDS: Omnipaque 350 MG/ML 100 ML BTL IJ (08:03)
--- NOTE | 2021-08-24 09:07 | CMPROGNOTE_ITS ---
- If Service Date Differs Date of service: 08/24/21 Time of Service: 09:07 Care Management Progress Note Pt reports hx of opioid use disorder and is currently in tx with [facility]. Pt reports 2 slips with IV Fentanyl in the past 30 days. Pt reports use of clean needles each time and received affirmation for harm reduction. We discussed harm reduction and MAT tx with his mother who was accompanying him and he was encouraged to continue tx. His mother indicated they had long debated the benef its of replacing one drug for another. [facility] staff made sure to reaffirm pt for participating in tx and discussed the positive aspects of harm reduction and support. His mother agreed that she needs to be reminded to acknowledge his progress and be supportive of his participation in tx vs the alternatives. Pt has been using Benzodiazepenes to help with sleep once in the past 30 days as well as daily cannabis. We discussed pros and cons of these types of self medication and pt was encouraged to engage in further discussion with his counselor and his primary care and encouraged to practice recovery skills he has gained in tx. Pt states he is actively participating with recovery supports through [employer].
--- NOTE | 2021-08-24 09:39 | NUR.NOTE ---
Nursing Note: Miguel Ángel Powers @ [facility] pt received 120 mg methadone @ 0750 08/23/2021.
--- NOTE | 2021-08-24 09:44 | W.EDPROG ---
Date of service: 08/24/21 Time of Service: 09:48 Medical Decision Making Care was signed out by Dr. Carlos with plan to follow-up on CT of the neck. CT of the neck interpreted by Dr. Cabrera, and various radiologist. I spoke with Dr. Cabrera and discussed ED presentation course. She notes no abscess or signs of significant infection. There is some lymphadenopathy submandibular. Patient reassessed and continues to have no hot potato voice, drooling, stridor, trismus or fever. Suspect sublingual swelling is related to dental infection and lymphadenopathy. Patient has received Unasyn here in the emergency department. I will continue antibiotic coverage with Augmentin. All results and discharge plan were discussed with the patient and his mother who are in agreement. Patient missed his appointment today at [facility], I will provide daily dose of methadone 120 mg. Lab Data Lab results reviewed: Yes I reviewed the patient's lab results. Labs: Laboratory Tests Range/Units 08/24/21 08/24/21 07:21 07:21 WBC (4.4-10.8) 10^3/uL 10.77 RBC (4.36-5.78) 10^6/uL 4.73 Hgb (13.5-17.5) g/dL 13.7 Hct (40.0-50.0) % 42.5 MCV (80-95) fL 90 MCH (27.0-33.0) pg 29.0 MCHC (32.0-36.0) % 32.2 RDW (11.8-14.1) % 14.2 H Plt Count (130-400) 10^3/uL 252 MPV (8.0-11.0) fL 10.3 Immature Gran % 0.4 Neutrophils % 65.2 Lymphocytes % 24.8 Monocytes % 7.1 Eosinophils % 2.1 Basophils % 0.4 Nucleated RBC % (0.0-0.3) % 0.0 Absolute Neutrophils (1.2-6.7) 10^3/uL 7.03 H Absolute Lymphocytes (1.2-3.4) 10^3/uL 2.67 Absolute Monocytes (0.1-0.8) 10^3/uL 0.76 Absolute Eosinophils (0.0-0.7) 10^3/uL 0.23 Absolute Basophils (0.0-0.2) 10^3/uL 0.04 Sodium (136-145) mmol/L 139 Potassium (3.5-5.1) mmol/L 4.1 Chloride (98-107) mmol/L 103 Carbon Dioxide (21.0-32.0) mmol/L 28.7 Anion Gap (3-11) mmol/L 7.3 BUN (7-18) mg/dL 21 H Creatinine (0.70-1.30) mg/dL 1.0 Estimated GFR/1.73 m2 (mL/min/1.73m2) >= 60.00 Glucose (74-106) mg/dL 91 Calcium (8.5-10.1) mg/dL 9.7 Sign Out Sign Out Data: Sign Out Comment: Pending labs and CT scan to evaluate for possible Matheus angina. No airway compromise at this time. Last updated by Laci Carlos MD at 08/24/21 07:15 Discharge Plan Disposition Patient Disposition: HOME Condition: Stable Discharge Details Clinical Impression: Dental infection, Lymphadenopathy Primary Care Provider: Galen Clemens ED Provider: Gilson Alonso Home Meds and New Rx's Prescriptions: New amoxicillin-pot clavulanate 875-125 mg tablet 1 tab PO BID Qty: 28 0RF Continued naloxone [Narcan] 4 mg/actuation spray,non-aerosol 4 mg NS DIRECTED Qty: 2 0RF Rx Instructions: One spray (4mg) intranasally into one nostril. Use a new nasal spray for subsequent dose in alternate nostril if needed. May repeat once after initial dose in 2-3 minutes. methadone 10 mg/mL Solution See Rx Instructions .ROUTE .COMPLEX Rx Instructions: 120mg PO daily Discontinued levetiracetam [Keppra] 500 mg tablet 500 mg PO BID Qty: 28 0RF Discharge Instructions Instructions: Dental Abscess (ED) Additional Instructions: Please take full course of antibiotic as prescribed. Please follow-up with your dentist. Call today to arrange timely follow-up. Return to the emergency department immediately for any worsening or new concerning symptoms including increased swelling or difficulty swallowing. Referrals: Galen Clemens [Primary Care Provider] -
[2021-08-24] MEDS: Methadone Liquid 10 MG/ML 120 MG PO (10:11)
== END 2021-08-24 10:30 | disposition still patient (30) ==
PROVIDERS: Emergency Medicine; Emergency Provider Student in an Organized Health Care Education/Training Program; PCP Family Medicine
DX: K04.7 Periapical abscess without sinus (principal); K02.9 Dental caries, unspecified; R59.0 Localized enlarged lymph nodes; F17.210 Nicotine dependence, cigarettes, uncomplicated
CPT/HCPCS: 36415; 70491; 80048; 96361; 96365; 96375; 99285; 85025; 99284; J0295; J1885; J3490

== ENCOUNTER 2021-11-29 11:18 | Emergency (ER) | payer MEDICAID, SELFPAY ==
[2021-11-29 11:22] VITALS: BP 120/83; PULSE 78; RESP 18; TEMP 36.7; O2SAT 98
--- NOTE | 2021-11-29 12:01 | ED.GENADUL_ITS ---
Discharge Plan Disposition Patient Disposition: HOME Condition: Improving Discharge Details Clinical Impression: Laceration of thumb Primary Care Provider: Galen Clemens ED Provider: Jovon Kaiser Home Meds and New Rx's Prescriptions: Continued naloxone [Narcan] 4 mg/actuation spray,non-aerosol 4 mg NS DIRECTED Qty: 2 0RF Rx Instructions: One spray (4mg) intranasally into one nostril. Use a new nasal spray for subsequent dose in alternate nostril if needed. May repeat once after initial dose in 2-3 minutes. amoxicillin-pot clavulanate 875-125 mg tablet 1 tab PO BID Qty: 28 0RF methadone 10 mg/mL Solution See Rx Instructions .ROUTE .COMPLEX Rx Instructions: 120mg PO daily Discharge Instructions Instructions: Laceration (ED) Additional Instructions: Laceration repaired without difficulty. Keep it clean and dry, change antibiotic dressing daily, wear splint to avoid tearing of the sutures. Rest, elevate, [id number] Tylenol and/or Motrin as directed for discomfort. Sutures should be removed in approximately 10 days. Watch for new or worsening symptoms and return to the ER for any concerns. Medical Decision Making 26-year-old gentleman, [id number], presents for a right thumb laceration he sustained at home when a piece of metal just prior to arrival. Tetanus status up-to-date. Denies numbness, tingling, weakness. No additional concerns or complaints. No clear indication to initiate x-ray as low suspicion for foreign body or bony involvement Laceration was repaired without difficulty. Antibiotic dressing and finger splint applied Standard discharge and return precautions were provided. Patient understands, is agreeable to this plan, and has no additional questions or concerns upon discharge. This documentation was generated using Bra[employer] system, please disregard any oddities of phrase or misspellings. Medical Records Medical records reviewed: Yes I reviewed the patient's medical records. HPI General Mode of arrival: ambulatory . Date/Time Provider Initiated Documentation: 11/29/21 11:34 . Limitations to Documentation: no limitations . Information obtained by: patient . History of Present Illness 26 year old M presents to the emergency department with the chief complaint of Right thumb laceration, described as moderate, with intensity rated at 4. Quality is described as aching, and is localized to the right and upper extremity. Franklyn correa reports no radiation. Patient started experiencing this hour(s) (1) and it has been constant. Immobilization improves symptom(s), Movement worsens symptoms . Patient notes no other symptoms.. Patient did receive the following treatments prior to arrival, none Related Data Home Medications Medication Instructions Recorded Confirmed naloxone 4 mg/actuation nasal 4 mg NS DIRECTED #2 sprays 02/13/19 11/29/21 spray (Narcan) methadone 10 mg/mL injection See Rx Instructions .Route .COMPLEX 09/17/20 11/29/21 solution amoxicillin 875 mg-potassium 1 tab PO BID #28 tabs 08/24/21 clavulanate 125 mg tablet Previous Rx's Medication Instructions Recorded naloxone 4 mg/actuation nasal 4 mg NS DIRECTED #2 sprays 02/13/19 spray (Narcan) amoxicillin 875 mg-potassium 1 tab PO BID #28 tabs 08/24/21 clavulanate 125 mg tablet Allergies Allergy/AdvReac Type Severity Reaction Status Date / Time No Known Allergies Allergy Verified 08/24/21 06:42 General Stated Complaint: Laceration MARTÍN: 4 Review of Systems Constitutional Constitutional: Denies fever(s) and Denies weakness Musculoskeletal Musculoskeletal: Denies arthralgias, Denies numbness, Denies stiffness and Denies tingling Integumentary/Breasts Skin/Breast: Denies rash Neurologic Neurologic: Denies numbness, Denies tingling and Denies weakness PFSH All Active Problems (Updated 11/29/21 @ 12:20 by FRANKLYN Mayo) Laceration of thumb (Acute) Depression (Chronic) Laceration of finger, right (Acute) Tooth infection (Acute) Infected finger (Acute) Heroin abuse (Chronic) As above. Reflecting on relapse he identifies the need to not be isolated and not let himself get bored. That is when he is tempted to use. He plans to move in to his own apartment Reactive depression (situational) (Acute 06/03/13) Accidental overdose of heroin (Acute 09/24/17) Smoker (Acute 08/02/17) Depression with anxiety (Acute 05/07/15) Taking Wellbutrin 300mg QD. Significant help with depression, moderate help with anxiety. Denies SI. Has graduated from intense 6 week outpatient program. Continues to see drug and alcohol counselor x1 each week. Working 40 hours Mon-Thurs at a [employer], 30+ hours at [employer] Sunday- Sunday. Admits to 1 relapse during his 6 week program. Congratulated in completing the program. Encouraged to continue with therapy and be proactive in his continued recovery. F/U 2 weeks. Medical History ADHD (attention deficit hyperactivity disorder) (09/21/15) Hepatitis C virus infection (~02/2018) Family History Mother Depression Grandfather Depression Heart disease Grandfather No problems noted. Grandmother Hyperlipidemia Grandmother Personal history of malignant neoplasm PANCREATIC Social History Smoking/Tobacco Use Status: Current every day Tobacco Type: cigarettes Smoking risk assessment performed?: Yes Alcohol Intake: current Alcohol Intake frequency: a few times a month Drug use: Daily Substance use type: marijuana and other Details: 1 year since last opiate use. Still uses marijuana daily. 140mg daily methadone Caregiver/Support person: Yes (states mom (John) his strongest support per son) Household members: family Current gender identity: male What type of physical activity do you participate in: none Seatbelt use: always Do you feel safe at home: Yes Do you feel safe in your relationship?: Yes Exam Const General: cooperative, healthy appearing, comfortable and no acute distress Orientation: alert and awake HENMT Head: normal to inspection, normocephalic and atraumatic Eyes Conjunctivae: conjunctivae normal Neck Neck: normal visual inspection, trachea midline and supple Resp Effort & Inspection: normal respiratory effort and able to speak in complete sentences Cardio Rate: regular rate Rhythm: regular rhythm Skin General skin exam: no rashes or lesions noted Neuro General: patient alert, patient awake, moves all extremities and no focal motor deficits Cognition: normal cognition Speech: speech normal Gait: normal gait Sensory Exam: no sensory deficits noted Extrem General: full ROM and capillary refill normal Hand/finger images: 1. 2.5 cm laceration. Minimal tenderness. No active bleeding. Neuro, vascular, tendon intact. Normal capillary refill. No foreign body. 5 out of 5 strength Psych Appearance: grossly normal Mental Status: mental status grossly normal Course Vital Signs Vital signs: Vital Signs Temperature 36.7 C 11/29/21 11:22 Pulse 78 11/29/21 11:22 Respiratory Rate 18 11/29/21 11:22 Blood Pressure 120/83 11/29/21 11:22 Pulse Oximetry 98 11/29/21 11:22 Temperature 36.7 C 11/29/21 11:22 Temperature Source Oral 11/29/21 11:22 Pulse 78 11/29/21 11:22 Respiratory Rate 18 11/29/21 11:22 Respiratory Effort Non-Labored 11/29/21 11:25 Blood Pressure 120/83 11/29/21 11:22 Blood Pressure Position Sitting 11/29/21 11:22 Pulse Oximetry 98 11/29/21 11:22 Oxygen Delivery Method Room Air 11/29/21 11:22 Oxygen Flow Rate 0 11/29/21 11:22 Pain Level 6 11/29/21 11:22 Procedures Laceration Laceration 1: Site: hand Side (If applicable): right Size (cm): 2.5 Description: linear and clean Depth: simple, single layer Local Anesthetic: Lidocaine 2%, Bupivicaine 0.5% and other anesthetic ([id number] mixture) Amount of anesthesia used (mL): 4 Pre-repair: wound explored, irrigated extensively and deep structures intact Skin layer closed with: nylon Size (cm): 4-0 Number of sutures: 5 Technique: simple, interrupted
== END 2021-11-29 12:36 | disposition home or self-care (01) ==
PROVIDERS: Emergency Provider Physician Assistant; PCP Family Medicine
DX: S61.011A Laceration without foreign body of right thumb without damage to nail, initial encounter (principal); F90.9 Attention-deficit hyperactivity disorder, unspecified type; F17.210 Nicotine dependence, cigarettes, uncomplicated; X58.XXXA Exposure to other specified factors, initial encounter; Y92.009 Unspecified place in unspecified non-institutional (private) residence as the place of occurrence of the external cause
CPT/HCPCS: 12001; 99281; 99282

== ENCOUNTER 2023-08-20 12:42 | Emergency (ER) | payer MEDICAID, SELFPAY ==
[2023-08-20 12:45] VITALS: BP 133/94; PULSE 75; RESP 14; TEMP 36.1; O2SAT 97
--- NOTE | 2023-08-20 12:49 | W.ED.GENAD ---
Discharge Plan Disposition Patient Disposition: Home Condition: Stable Discharge Details Clinical Impression: Closed fracture dislocation of right elbow Primary Care Provider: Galen Clemens ED Provider: Titus Vidales Home Meds and New Rx's Prescriptions: No Action naloxone [Narcan] 4 mg/actuation spray,non-aerosol 4 mg NS DIRECTED Qty: 2 0RF Rx Instructions: One spray (4mg) intranasally into one nostril. Use a new nasal spray for subsequent dose in alternate nostril if needed. May repeat once after initial dose in 2-3 minutes. duloxetine 30 mg capsule,delayed release(DR/EC) 30 mg PO DAILY methadone 10 mg/mL concentrate 100 mg PO DAILY ropinirole 0.5 mg tablet 0.5 mg PO DAILY amoxicillin-pot clavulanate 875-125 mg tablet 1 tab PO BID Qty: 28 0RF methadone 10 mg/mL Solution See Rx Instructions .ROUTE .COMPLEX Rx Instructions: 120mg PO daily Discharge Instructions Instructions: Dislocated Elbow, Procedural Sedation, Adult ED, Elbow Fracture, Adult ED Additional Instructions: You were seen in the emergency department for your fall from 6 foot ladder, you had a fracture dislocation of your right elbow which was reduced with procedural sedation, it was reduced successfully, there is no fracture in your hand which had pain in the x-ray after your reduction. I discussed your case with our orthopedist on-call Dr. Rosado, he recommends that you get surgery from an elbow specialist at [facility]. I have placed a consult and pushed your x-rays to them for review. If you have not heard back within 48 hours please call them to schedule surgery. Please rest, ice, compress and elevate, ice around the splint that we placed you in, remain in the sling. Please use therapeutic dosing of Tylenol (acetamenophen) & Advil (ibuprofen) in an alternating fashion as follows: Take 1000mg of Tylenol every 6 hours without missing doses- that is 4 times per day. [place] in between the Tylenol dosings, take 400-600mg of Advil also on a 6 hour schedule, that is also 4 times per day. The daily maximum dosing of Tylenol is 4000mg, and the daily maximum dosing of Advil is 2400mg. This is safe to do for weeks. Please note that some common cold medications & prescription pain medications may contain acetamenophen and you need to read OTC drug labels and factor that in to maximum daily dosings. Please return to the emergency department for severe increase in pain and swelling of the forearm, complete numbness distal to the injury in the hand, skin temperature changes of the hand Referrals: [facility] [Outside] Galen Clemens [Primary Care Provider] - Discharge Data Discharge Date/Time-TO BE ENTERED AT DEPARTURE: 08/20/23 15:48 HPI General Date/Time Provider Initiated Documentation: 08/20/23 12:49. HPI Narrative: 27 year-old male presents to ED today by POV/ambulating with a chief complaint of fall frm 6 foot ladder with R elbow deformity- R-hand dominant, with onset just prior to arrival. Quality described as R elbow pain, swelling, denies hand numbness, no radiation to severe ecchymosis, forearm swelling, humerus pain, shoulder pain, denies headstrike, denies LOC, denies visual changes. Severity is described as severe. Palliating factors include nothing specific. Provoking factors include nothing attempted beyond guarding. Patient not anticoagulated. Related Data Home Medications ?Medication ?Instructions ?Recorded ?Confirmed naloxone 4 mg/actuation nasal 4 mg NS DIRECTED #2 sprays 02/13/19 11/29/21 spray (Narcan) methadone 10 mg/mL injection See Rx Instructions .Route .COMPLEX 09/17/20 11/29/21 solution amoxicillin 875 mg-potassium 1 tab PO BID #28 tabs 08/24/21 clavulanate 125 mg tablet duloxetine 30 mg capsule,delayed 30 mg PO DAILY 01/30/23 release methadone 10 mg/mL oral concentrate 100 mg PO DAILY 01/30/23 ropinirole 0.5 mg tablet 0.5 mg PO DAILY 01/30/23 Previous Rx's ?Medication ?Instructions ?Recorded naloxone 4 mg/actuation nasal 4 mg NS DIRECTED #2 sprays 02/13/19 spray (Narcan) amoxicillin 875 mg-potassium 1 tab PO BID #28 tabs 08/24/21 clavulanate 125 mg tablet Allergies Allergy/AdvReac Type Severity Reaction Status Date / Time No Known Allergies Allergy Verified 08/24/21 06:42 General Stated Complaint: Orthopedic MARTÍN: 2 Review of Systems All systems reviewed & are unremarkable except as noted in HPI and below Exam Narrative Exam Narrative: GENERAL APPEARANCE: Well-nourished, non-toxic, awake and alert, atraumatic, no acute distress. SKIN: Warm, pink, dry, intact, without rashes/lesions/ulcerations. HEAD: Normocephalic, atraumatic, normal hair distribution for gender/age. EYES: Pupils PERRLA, EOMs intact without nystagmus, normal conjunctiva, no exudates on lids/lashes. ENT: Nares patent, no circumoral cyanosis, no facial swelling NECK: Supple, trachea midline, painless cervical ROM. LUNGS/CHEST: Lungs CTA bilaterally- no rhonchi/rales/wheezes diffusely, non-labored respirations, normal A/P diameter, symmetrical expansion, no chest wall deformity HEART (CV/PV): Regular rate and rhythm without murmur, no peripheral edema, no JVD. ABDOMEN: Soft, non-distended, no guarding. MSK: Normal ROM, no swelling/deformity to bilateral UEs or LEs, moving all extremities without weakness, no cyanosis, spine midline without tenderness, normal curvature. R UE: right elbow swelling and deformity with mild ecchymosis consistent with elbow dislocation, right radial pulse 2+, loss prevention lead strength 4+/5, brisk capillary refill, able to wiggle all fingers, finger AB/adduction intact. No humeral tenderness or shoulder tenderness, denies head strike, no midline vertebral tenderness/crepitus/step-off. NEURO: Mental Status AAOx4 - alert to person, place, time, events No facial droop, no forehead involvement. Motor: No focal weakness - strength 5/5 in bilateral UEs and LEs- save for distal R UE, proximal and distal, symmetric. Sensory: sensation intact to light touch globally. Gait normal: patient ambulated without ataxia into ED room. PSYCH: euthymic, cooperative, pleasant, appropriate speech Course Vital Signs Vital signs: Vital Signs Temperature 36.1 C L 08/20/23 12:45 Pulse 75 08/20/23 12:45 Respiratory Rate 14 08/20/23 12:45 Blood Pressure 133/94 H 08/20/23 12:45 Pulse Oximetry 97 08/20/23 12:45 Temperature 36.1 C L 08/20/23 12:45 Temperature Source Skin 08/20/23 12:45 Pulse 75 08/20/23 12:45 Respiratory Rate 14 08/20/23 12:45 Blood Pressure 133/94 H 08/20/23 12:45 Pulse Oximetry 97 08/20/23 12:45 Oxygen Delivery Method Room Air 08/20/23 12:45 Oxygen Flow Rate 0 08/20/23 12:45 Pain Level 9 08/20/23 12:45 Procedures Orthopedic Joint Reduction Joint #1: Time Out Performed: Yes Side: right Joint Reduction Location: elbow Analgesia: procedural sedation Technique used: direct manipulation Post-reduction neuro exam: intact Post-reduction vascular: intact Post Reduction X-Ray Obtained: Yes Post Reduction X-Ray Results: reduced Splint Applied: Yes Patient Tolerated Procedure: well Medical Decision Making This dictation utilizes [id number] dictation software and may contain unedited grammatical errors. 27 year-old male presents to ED today by POV/ambulating with a chief complaint of fall frm 6 foot ladder with R elbow deformity- R-hand dominant, with onset just prior to arrival. Quality described as R elbow pain, swelling, denies hand numbness, no radiation to severe ecchymosis, forearm swelling, humerus pain, shoulder pain, denies headstrike, denies LOC, denies visual changes. Severity is described as severe. Palliating factors include nothing specific. Provoking factors include nothing attempted beyond guarding. Patients' medical history: History of hepatitis C, recently started MAT for opioid dependence, history of seizure, tobacco use. Family and social history: Denies current illicit drug use, denies EtOH use. Pertinent exam findings / vital signs include right elbow swelling and deformity with mild ecchymosis consistent with elbow dislocation, right radial pulse 2+, loss prevention lead strength 4+/5, brisk capillary refill, able to wiggle all fingers, finger AB/adduction intact. No humeral tenderness or shoulder tenderness, denies head strike, no midline vertebral tenderness/crepitus/step-off. Differential / pathologies of concern include fracture dislocation. Diagnostic studies of: -XR R elbow- shows fracture of coronoid and dislocation. -post reduction shows good reduction Interventions of: -Closed reduction and long-arm splint applied by myself, procedural sedation by EM Attending Dr. Braxton, consult with Ortho Dr. Rosado who recommends [facility] f/u for elbow surgery post-reduction on non-emergent basis. ED Course/Assessment/Plan: 27-year-old male 6 foot fall from a ladder, is a fracture dislocation, coronoid fracture of the elbow. I spoke with our orthopedist Dr. Rosado who recommended reduction and he will send an email to [facility] orthopedics for elbow surgery, I will consult with them to confirm [id number] was excessively busy we needed the room and is been multiple hours since consulted been called so I did discharge the patient after reduction without complication, patient was neurovascularly intact the lateral view confirming reduction. Patient was comfortable with this disposition, I did speak with [facility] orthopedics at 1600 hrs, they request three-view x-ray of the elbow, x-ray of the forearm and a CT scan of the elbow but patient had been discharged. Will order these studies outpatient for him to follow-up with orthopedics, he had been discharged with strict RICE therapy and a long-arm immobilizer splint and sling. Findings not consistent with neurovascular compromise. Disposition of Closed Fracture Reduction of Right Elbow. Patient verbalized understanding of the plan and return to ED criteria and engaged in shared decision making. Medical Records Medical records reviewed: Yes I reviewed the patient's medical records. Imaging Data Radiologic Study: Attestation: I personally reviewed and interpreted this imaging study as follows: Radiologist's impression: EXAM: XR ELBOW RT COMPLETE h CLINICAL HISTORY: R elbow disloc. TECHNIQUE: 2D digital imaging was performed. COMPARISON: No exams were available for comparison FINDINGS: 3 views There is a fracture dislocation of the elbow joint. The radial head an olecranon fossa are displaced posteriorly relative to the capitellum and trochlea of the distal humerus. There is also a dominant fracture fragment anteriorly measuring 1.3 x 0.4 cm. This is most probably from fractured coracoid process of the proximal ulna. IMPRESSION: Fracture dislocation as above. Radiologic Study #2: Attestation: I personally reviewed and interpreted this imaging study as follows: Imaging: X-Ray Radiologist's impression: EXAM: XR ELBOW RT LIMITED INDICATION: post-reduction portable. COMPARISON: CR XR ELBOW RT COMPLETE from 08/20/2023 TECHNIQUE: 2D digital imaging was performed. Single lateral view FINDINGS: The images mildly oblique. There has been interval reduction of the post previously noted posterior dislocation of the radius and ulnar with suspect to the humerus. The alignment is now anatomic. The previously noted fracture fragments are visible adjacent to the proximal radius. Impression: Satisfactory reduction of elbow dislocation. Anterior fracture Fragments. Radiologic Study #3: Attestation: I personally reviewed and interpreted this imaging study as follows: Imaging: X-Ray Radiologist's impression: EXAM: XR HAND RT COMPLETE CLINICAL HISTORY: R hand pain during reduction. TECHNIQUE: 2D digital imaging was performed. Three views. COMPARISON: CR RIGHT WRIST COMPLETE from 09/05/2012 FINDINGS: And ulnar splint is in place which partially obscures the bony detail. BONES: No acute fracture is present. No bony destructive lesion is seen. JOINTS: No dislocation present. SOFT TISSUE: Normal. IMPRESSION: Unremarkable radiographs of the right hand. Quality:SDOH Health Related Social Needs: No Data to Display PFSH All Active Problems (Updated 08/20/23 @ 15:[address] Avelar) Closed fracture dislocation of right elbow (Acute) History of psychiatric disorder (Acute) Seizure (Acute) Restless legs (Acute) Adjustment disorder with anxiety (Acute) Opioid dependence (Acute) Recurrent major depression (Acute) Disorder of hematopoietic structure (Acute) Depression (Chronic) Laceration of finger, right (Acute) Tooth infection (Acute) Infected finger (Acute) Heroin abuse (Chronic) As above. Reflecting on relapse he identifies the need to not be isolated and not let himself get bored. That is when he is tempted to use. He plans to move in to his own apartment Reactive depression (situational) (Acute 06/03/13) Accidental overdose of heroin (Acute 09/24/17) Smoker (Acute 08/02/17) Depression with anxiety (Acute 05/07/15) Taking Wellbutrin 300mg QD. Significant help with depression, moderate help with anxiety. Denies SI. Has graduated from intense 6 week outpatient program. Continues to see drug and alcohol counselor x1 each week. 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 Admits to 1 relapse during his 6 week program. Congratulated in completing the program. Encouraged to continue with therapy and be proactive in his continued recovery. F/U 2 weeks. Medical History ADHD (attention deficit hyperactivity disorder) (09/21/15) Hepatitis C virus infection (~02/2018) Family History Mother Depression Grandfather Depression Heart disease Grandfather No problems noted. Grandmother Hyperlipidemia Grandmother Personal history of malignant neoplasm PANCREATIC Social History Smoking/Tobacco Use Status: Current every day Tobacco Type: cigarettes Smoking risk assessment performed?: Yes Alcohol Intake: current Alcohol Intake frequency: a few times a month Drug use: Daily Substance use type: marijuana and other Details: 1 year since last opiate use. Still uses marijuana daily. 140mg daily methadone Caregiver/Support person: Yes (states mom (John) his strongest support person) Household members: family Current gender identity: male What type of physical activity do you participate in: none Seatbelt use: always Do you feel safe at home: Yes Do you feel safe in your relationship?: Yes
[2023-08-20] MEDS: Acetaminophen 500 MG TAB 1000 MG PO (13:06)
[2023-08-20] MEDS: Ketorolac 10 MG TAB PO (13:06)
--- NOTE | 2023-08-20 13:13 | DI.RAD_ITS ---
Exam(s) XR ELBOW RT COMPLETE EXAM: XR ELBOW RT COMPLETE h CLINICAL HISTORY: R elbow disloc. TECHNIQUE: 2D digital imaging was performed. COMPARISON: No exams were available for comparison FINDINGS: 3 views There is a fracture dislocation of the elbow joint. The radial head an olecranon fossa are displaced posteriorly relative to the capitellum and trochlea of the distal humerus. There is also a dominant fracture fragment anteriorly measuring 1.3 x 0.4 cm. This is most probably from fractured coracoid process of the proximal ulna. IMPRESSION: Fracture dislocation as above. DATA REPOSITORY: RADIATION DOSE DELIVERED:
--- NOTE | 2023-08-20 13:15 | RT.EKG_ITS ---
APPROVED REPORT Exam: Resting ECG Reason for Exam: QT check Patient Location: E HR:82 bpm ECG Measurements Heart Rate 82 AXIS KS 157 P -85 QRSd 91 QRS 60 QT 374 T 19 QTc 437 Conclusion sinus 82 normal axis no stemi normal QTC
[2023-08-20 13:56] VITALS: BP 142/88; PULSE 72; RESP 12; TEMP 36.7; O2SAT 97
--- NOTE | 2023-08-20 14:00 | DI.RAD_ITS ---
Exam(s) XR ELBOW RT LIMITED EXAM: XR ELBOW RT LIMITED INDICATION: post-reduction portable. COMPARISON: CR XR ELBOW RT COMPLETE from 08/20/2023 TECHNIQUE: 2D digital imaging was performed. Single lateral view FINDINGS: The images mildly oblique. There has been interval reduction of the post previously noted posterior dislocation of the radius and ulnar with suspect to the humerus. The alignment is now anatomic. The previously noted fracture fragments are visible adjacent to the proximal radius. Impression: Satisfactory reduction of elbow dislocation. Anterior fracture Fragments. DATA REPOSITORY: RADIATION DOSE DELIVERED:
--- NOTE | 2023-08-20 14:15 | DI.RAD_ITS ---
Exam(s) XR HAND RT COMPLETE EXAM: XR HAND RT COMPLETE CLINICAL HISTORY: R hand pain during reduction. TECHNIQUE: 2D digital imaging was performed. Three views. COMPARISON: CR RIGHT WRIST COMPLETE from 09/05/2012 FINDINGS: And ulnar splint is in place which partially obscures the bony detail. BONES: No acute fracture is present. No bony destructive lesion is seen. JOINTS: No dislocation present. SOFT TISSUE: Normal. IMPRESSION: Unremarkable radiographs of the right hand. DATA REPOSITORY: RADIATION DOSE DELIVERED:
--- NOTE | 2023-08-20 14:17 | ED.PROG_ITS ---
Date of service: 08/20/23 Time of Service: 14:17 Medical Decision Making Patient evaluated in conjunction with the PA. I evaluated secondary to medical complexity. Patient came in after a fall and was noted to have a right elbow dislocation. Neurovascularly intact with good pulse. No neurosymptoms. Compartments soft. Patient evaluated for conscious sedation for reduction. NPO time around 9:30 AM, no significant history of medical disease. Mallampati 1, ASA 1. Consented for sedation. Sedation and reduction performed without complication. Tolerated well. Splint applied. Patient will follow-up with [facility] orthopedics. Quality:[facility] Health Related Social Needs: No Data to Display Procedures Procedural Sedation Indication: fracture/dislocation reduction ASA Class: I Time of Last PO Intake: 09:30 Preparation: manager monitoring applied, pulse oximeter, capnometry used, supplemental O2 applied, reversal agents at bedside, suction/airway equipment at bedside and IV secured IV Propofol dose (mg): 100 Discharge Plan Disposition Patient Disposition: Home Condition: Stable Discharge Details Clinical Impression: Closed fracture dislocation of right elbow Primary Care Provider: Galen Clemens ED Provider: Titus Vidales Home Meds and New Rx's Prescriptions: No Action naloxone [Narcan] 4 mg/actuation spray,non-aerosol 4 mg NS DIRECTED Qty: 2 0RF Rx Instructions: One spray (4mg) intranasally into one nostril. Use a new nasal spray for subsequent dose in alternate nostril if needed. May repeat once after initial dose in 2-3 minutes. duloxetine 30 mg capsule,delayed release(DR/EC) 30 mg PO DAILY methadone 10 mg/mL concentrate 100 mg PO DAILY ropinirole 0.5 mg tablet 0.5 mg PO DAILY amoxicillin-pot clavulanate 875-125 mg tablet 1 tab PO BID Qty: 28 0RF methadone 10 mg/mL Solution See Rx Instructions .ROUTE .COMPLEX Rx Instructions: 120mg PO daily Discharge Instructions Instructions: Dislocated Elbow, Procedural Sedation, Adult ED, Elbow Fracture, Adult ED Additional Instructions: You were seen in the emergency department for your fall from 6 foot ladder, you had a fracture dislocation of your right elbow which was reduced with procedural sedation, it was reduced successfully, there is no fracture in your hand which had pain in the x-ray after your reduction. I discussed your case with our orthopedist on-call Dr. Rosado, he recommends that you get surgery from an elbow specialist at [facility]. I have placed a consult and pushed your x-rays to them for review. If you have not heard back within 48 hours please call them to schedule surgery. Please rest, ice, compress and elevate, ice around the splint that we placed you in, remain in the sling. Please use therapeutic dosing of Tylenol (acetamenophen) & Advil (ibuprofen) in an alternating fashion as follows: Take 1000mg of Tylenol every 6 hours without missing doses- that is 4 times per day. Care Home in between the Tylenol dosings, take 400-600mg of Advil also on a 6 hour schedule, that is also 4 times per day. The daily maximum dosing of Tylenol is 4000mg, and the daily maximum dosing of Advil is 2400mg. This is safe to do for weeks. Please note that some common cold medications & prescription pain medications may contain acetamenophen and you need to read OTC drug labels and factor that in to maximum daily dosings. Please return to the emergency department for severe increase in pain and swelling of the forearm, complete numbness distal to the injury in the hand, skin temperature changes of the hand Referrals: [facility] [Outside] Galen Clemens [Primary Care Provider] -
[2023-08-20 15:46] VITALS: BP 130/72; PULSE 72; RESP 16; TEMP 36.8; O2SAT 98
[2023-08-20 15:48] VITALS: BP 130/72; PULSE 72; RESP 16; TEMP 36.8; O2SAT 98
[2023-08-20] MEDS: PROPOFOL 1,000 MG/100 ML BTL 7 MG (15:48)
[2023-08-20] MEDS: Nicotine 4 MG GUM CH (15:48)
--- NOTE | 2023-08-20 16:20 | NUR.NOTE ---
Copy given to Diagnostic Imaging request for xray elbow right 3view, xray forearm right, CT right elbow without contrast. Reason needs for surgical planning @ [facility]. Follow up [facility] Ortho, [facility] Ortho. to be done tomorrow August 21 2023. Nursing Note:
== END 2023-08-20 15:48 | disposition home or self-care (01) ==
PROVIDERS: Emergency Provider Physician Assistant; PCP Family Medicine
DX: S52.121A Displaced fracture of head of right radius, initial encounter for closed fracture (principal); S52.021A Displaced fracture of olecranon process without intraarticular extension of right ulna, initial encounter for closed fracture; W11.XXXA Fall on and from ladder, initial encounter
CPT/HCPCS: 00123; 93005; 99284; 25605; 73070; 73080; 73130; 93010; J2704

== ENCOUNTER 2023-09-15 03:18 | Emergency (ER) | payer MEDICAID, SELFPAY ==
--- NOTE | 2023-09-15 03:21 | ED.GENADUL_ITS ---
Discharge Plan Disposition Patient Disposition: Home Condition: Good Discharge Details Clinical Impression: Abrasions of multiple sites, Multiple contusions, Finger laceration Primary Care Provider: ION SOOD ED Provider: Laci Carlos Meds and New Rx's Prescriptions: Continued naloxone [Narcan] 4 mg/actuation spray,non-aerosol 4 mg NS DIRECTED Qty: 2 0RF Rx Instructions: One spray (4mg) intranasally into one nostril. Use a new nasal spray for subsequent dose in alternate nostril if needed. May repeat once after initial dose in 2-3 minutes. methadone 10 mg/mL concentrate 135 mg PO DAILY hydroxyzine HCl 25 mg tablet 25 mg PO DAILY Patient Comments: TAKE ONE TABLET BY MOUTH TWICE A DAY NEEDED FOR ANXIETY clonidine HCl 0.1 mg tablet 0.1 mg PO DAILY Patient Comments: TAKE ONE TABLET BY MOUTH TWICE A DAY NEEDED FOR ANXIETY Discharge Instructions Instructions: Minor Contusion ED, Wound Care ED Additional Instructions: You were seen after a fall down a set of stairs with multiple abrasions and contusions but no evidence of fracture, internal injury, head injury on exam. You do have a laceration to your finger which you have decided not to have sutured. It will be important to keep this clean, as well as keep your abrasions clean, and keep the laceration covered and use the splint provided to give the finger some protection. Follow-up with primary care in 1 to 2 weeks. Return to ED for any sign of infection which would include increasing pain, redness, swelling. Return to ED for any severe worsening headache, neurologic change, shortness of breath, abdominal pain, chest pain, other concerns. HPI General Mode of arrival: ambulatory . Date/Time Provider Initiated Documentation: 09/15/23 03:21 . Limitations to Documentation: no limitations . Information obtained by: patient and RN notes reviewed . HPI Narrative: Patient presents to ED status post fall down a flight of stairs. Patient had got up to go to the bathroom and missed stepped falling down the stairs. He never lost consciousness and recalls the entire event. He is ambulatory without difficulty. Denies having any type of neck pain or back pain. Denies chest pain or shortness of breath. Denies abdominal pain. Has multiple abrasions and lacerations which prompted him to come in because he was unsure whether anything needed to be sutured or not. Recently had surgery on the right elbow for a fracture dislocation. Denies any pain or change in range of motion there. Related Data Home Medications ?Medication ?Instructions ?Recorded ?Confirmed naloxone 4 mg/actuation nasal 4 mg NS DIRECTED #2 sprays 02/13/19 09/15/23 spray (Narcan) methadone 10 mg/mL oral concentrate 135 mg PO DAILY 01/30/23 09/15/23 clonidine HCl 0.1 mg tablet 0.1 mg PO DAILY 09/15/23 09/15/23 hydroxyzine HCl 25 mg tablet 25 mg PO DAILY 09/15/23 09/15/23 Previous Rx's ?Medication ?Instructions ?Recorded naloxone 4 mg/actuation nasal 4 mg NS DIRECTED #2 sprays 02/13/19 spray (Narcan) Allergies Allergy/AdvReac Type Severity Reaction Status Date / Time No Known Allergies Allergy Verified 09/15/23 03:25 General MARTÍN: 2 Review of Systems Narrative: Per HPI Exam Narrative Exam Narrative: Const: WDWN male in NAD. VS per triage. HEENT: NC. Abrasion/contusion over the left eyebrow. Abrasion behind the left ear. No bony tenderness. Neck: Supple. Trachea midline. No cervical spine tenderness. Lungs: Normal respiratory effort. Lungs are clear. No chest wall tenderness. Cor: RRR without murmur. Good radial pulses. GI: Soft/ND/NT. Back: TLS spine is non-tender. Multiple large abrasions on the back. Neuro: A+O x 3. Normal speech, mentation, gait. Cranial nerves II - XII grossly intact. No gross motor or sensory deficit. Ext: No C/C/E. Normal ROM. Right elbow incision remains intact with sutures. Good ROM and no tenderness involving the right elbow. Abrasion to right ankle. Laceration not involving tendon in the palmar crease of the long DIP joint. Full function of flexor tendon in tact on exam. Medical Decision Making Patient presenting status post fall down a set of stairs. He denies any loss of consciousness. He denies any neurologic change. He denies headache. CTLS spine is nontender. Vital signs are normal. Lungs are clear with no chest wall tenderness. Abdomen is benign. No obvious fracture or deformity of the extremities. Multiple abrasions and contusions. He does have a laceration to the left long finger which should be repaired. He has declined as it is right in the crease and he thinks it will heal fine. Did wash and clean his wounds. Bacitracin and Band-Aid applied to the laceration and a splint was applied to prevent range of motion of the DIP joint in hopes that it allows quick healing of the laceration. Patient to follow-up with primary care in 1 to 2 weeks for recheck if needed. Return precautions provided. Tetanus up-to-date. FOR[facility]LY [facility], [facility] All Active Problems Finger laceration (Acute) Multiple contusions (Acute) Abrasions of multiple sites (Acute) Closed fracture dislocation of right elbow (Acute) Seizure (Acute) Restless legs (Acute) Adjustment disorder with anxiety (Acute) Opioid dependence (Acute) Recurrent major depression (Acute) Disorder of hematopoietic structure (Acute) Heroin abuse (Chronic) As above. Reflecting on relapse he identifies the need to not be isolated and not let himself get bored. That is when he is tempted to use. He plans to move in to his own apartment Smoker (Acute 08/02/17) Medical History Depression with anxiety (05/07/15) Taking Wellbutrin 300mg QD. Significant help with depression, moderate help with anxiety. Shahriar GODINEZ. Has graduated from intense 6 week outpatient program. Continues to see drug and alcohol counselor x1 each week. Working 40 hours Mon- at a [employer], 30+ hours at [employer] Sunday- Sunday. Admits to 1 relapse during his 6 week program. Congratulated in completing the program. Encouraged to continue with therapy and be proactive in his continued recovery. F/U 2 weeks. Hepatitis C virus infection (~02/2018) ADHD (attention deficit hyperactivity disorder) (09/21/15) Surgical History H/O elbow surgery Family History Mother Depression Grandfather Depression Heart disease Grandfather No problems noted. Grandmother Hyperlipidemia Grandmother Personal history of malignant neoplasm PANCREATIC Social History Smoking/Tobacco Use Status: Current every day Tobacco Type: cigarettes Smoking risk assessment performed?: Yes Alcohol Intake: current Alcohol Intake frequency: a few times a month Drug use: Daily Substance use type: marijuana and other Details: 1 year since last opiate use. Still uses marijuana daily. 140mg daily methadone Caregiver/Support person: Yes (states mom (John) his strongest support person) Household members: family Current gender identity: male What type of physical activity do you participate in: none Seatbelt use: always Do you feel safe at home: Yes Do you feel safe in your relationship?: Yes
[2023-09-15 03:22] VITALS: BP 107/86; PULSE 77; RESP 18; TEMP 36.8; O2SAT 98
== END 2023-09-15 03:48 | disposition home or self-care (01) ==
PROVIDERS: Emergency Provider Emergency Medicine; PCP Nurse Practitioner Family
DX: S61.213A Laceration without foreign body of left middle finger without damage to nail, initial encounter (principal); T07.XXXA Unspecified multiple injuries, initial encounter; W10.8XXA Fall (on) (from) other stairs and steps, initial encounter
CPT/HCPCS: 29130; 99283

== ENCOUNTER 2023-11-13 15:02 | Outpatient (REF) | payer MEDICAID, SELFPAY | END 2023-11-13 15:03 | disposition home or self-care (01) | LOC: LBN 15:02 | PROVIDERS: PCP Nurse Practitioner Family; Visit Provider Nurse Practitioner Family | DX: L08.9 Local infection of the skin and subcutaneous tissue, unspecified (principal); B95.62 Methicillin resistant Staphylococcus aureus infection as the cause of diseases classified elsewhere | CPT/HCPCS: 87077; 87070; 87186; 87205 ==

== ENCOUNTER 2024-02-11 07:28 | Emergency (ER) | payer MEDICAID, SELFPAY ==
[2024-02-11] VITALS (24 sets, daily range): BP systolic 108–137; BP diastolic 61–79; PULSE 120–150; RESP 29–47; TEMP 36.6–37.6; O2SAT 89–98
--- NOTE | 2024-02-11 07:30 | RT.EKG_ITS ---
APPROVED REPORT Exam: Resting ECG Reason for Exam: Difficulty Breathing Patient Location: E HR:136 bpm ECG Measurements Heart Rate 136 AXIS AK 146 P 69 QRSd 90 QRS 77 QT 280 T 14 QTc 422 Conclusion Sinus tachycardia...rate> 99 Ventricular premature complex...V complex w/ short R-R interval Physician: no stemi
--- OUTSIDE RECORDS SUMMARY | 2024-02-11 07:36 | XMS_ITS | Encounter Summary ---
Author Organization [facility] Address [facility] [place] [address] Care Team Providers Care Transformer Repairer Name Role Phone Kaia Nolasco APRN Primary Care Provider [phone] Reason for Referral * Diagnostic Test (STAT) - Closed Specialty Diagnoses / Procedures Referred By Contac t Referred To Contact Radiology Diagnoses Elbow injury, right, initial encounter Procedures CT Elbow wo Contrast Right (Generic) Noreen Santos MD [facility] [place] [address] [facility] [place] [address] Referral ID Status Reason Start Date Expiration Date V isits Requested Visits Authorized [id number] Closed Specialty Service Requested 08/21/2023 02/20/2025 1 1 Reason for Visit * Diagnostic Test (STAT) - Closed Specialty Diagnoses / Procedures Referred By Contac t Referred To Contact Radiology Diagnoses Elbow injury, right, initial encounter Procedures CT Elbow wo Contrast Right (Generic) Noreen Santos MD [facility] [place] [address] [facility] [place] [address] Referral ID Status Reason Start Date Expiration Date V isits Requested Visits Authorized [id number] Closed Specialty Service Requested 08/21/2023 02/20/2025 1 1 Encounter Details Date Type Department Care Team (Latest Contact Info) Description 08/23/2023 10:03 AM EDT - 08/23/2023 11:41 AM EDT Hospital [place] [address] Noreen Santos MD [facility] [place] [address] Elbow injury, right, initial encounter Discharge Disposition: Home Social History Tobacco Use Types Packs/Day Years Used Date Smoking Tobacco: Every Day Cigarettes Smokeless Tobacco: Never Alcohol Use Standard Drinks/Week Comments Yes 0 (1 standard drink = 0.6 oz pur e alcohol) Small amount Sex and Gender Information Value Date Recorded Sex Assigned at Not on file Gender Identity Not on file Sexual Orientation Not on file documented as of this encounter Medications at Time of Discharge Medication Sig Dispensed Refills Start Date End Date aspirin EC 81 mg EC (DR) tablet Take 1 tablet by mouth 2 times daily. 60 tablet 08/27/2023 traMADoL (Ultram) 50 mg tablet Take 1 tablet by mouth every 6 hours as needed for Pain. 20 tablet 08/27/2023 cloNIDine (Catapres) 0.1 mg tablet Take 1 tablet by mouth every 12 hours as needed for Anxiety. 08/21/2023 documented as of this encounter Plan of Treatment Not on file documented as of this encounter Procedures Procedure Name Priority Date/Time Associated Diagnosis Comments CT ELBOW WO CONTRAST RIGHT STAT 08/23/2023 10:26 AM EDT Elbow injury, right, initial encounter documented in this encounter Results * CT Elbow wo Contrast Right (Generic) (08/23/2023 10:26 AM EDT) WORKSTATION ID [id number] [facility] Anatomical Region Laterality Modality Elbow Right Computed Tomogra phy Impressions 08/23/2023 10:56 AM EDT 1. ??Minimally comminuted, displaced coronoid process fracture, as a sequela from posterior elbow dislocation, involving < 50 % of the coronoid process articular surface (O?[place] Type 2) 2. ??Large elbow effusion 3. ??Marked posterior elbow soft tissue swelling. Thank you for letting us participate in the care of this patient. ??If you are a health care provider and have any questions regarding this report, please contact the number below. ??For patients who have questions please contact the health healthcare analyst that requested your imaging first. ? Narrative 08/23/2023 10:56 AM EDT EXAMINATION: CT ELBOW WO CONTRAST RIGHT (GENERIC) CLINICAL HISTORY: Right elbow fx dislocation Doi 08/20/2023 (reduced) S59.901A, Unspecified injury of right elbow, initial encounter TECHNIQUE: Unenhanced CT examination of the right elbow. ??On an independent workstation, 3-D surface rendered reformats are generated. COMPARISON: Radiographs right elbow 08/20/2023, FINDINGS: Bones/Joints: There is a dorsal splint in place. There is mild comminuted fracture of coronoid process as a sequela from prior posterior elbow dislocation. ??The displaced dominant coronoid process fragment measures 16 x 8 x 16 mm and proximally displaced away from the ulna by 1 cm. Multiple small subcentimeter osseous fragments adjacent to dominant fragment. Coronoid process fracture involves less than 50 % articular surface (O?[place] Type 2). ??No additional fracture. Maintained spacing and alignment of the radial-capitellum and ulnohumeral articulations. ??The proximal radioulnar joint is congruent. ??Large elbow effusion. ??No intra-articular body. Soft tissue: There is marked posterior elbow soft tissue swelling. ??The triceps tendon is intact by CT. Procedure Note Edgar Howell MD - 08/23/2023 EXAMINATION: CT ELBOW WO CONTRAST RIGHT (GENERIC) CLINICAL HISTORY: Right elbow fx dislocation Doi 08/20/2023 (reduced) S59.901A, Unspecified injury of right elbow, initial encounter TECHNIQUE: Unenhanced CT examination of the right elbow. On an independentworkstation, 3-D surface rendered reformats are generated. COMPARISON: Radiographs right elbow 08/20/2023, FINDINGS: Bones/Joints: There is a dorsal splint in place. There is mild comminuted fracture of coronoid process as a sequela fromprior posterior elbow dislocation. The displaced dominant coronoid processfragment measures 16 x 8 x 16 mm and proximally displaced away from the ulna by 1cm. Multiple small subcentimeter osseous fragments adjacent to dominantfragment. Coronoid process fracture involves less than 50 % articular surface(O?[place] Type 2). No additional fracture. Maintained spacing and alignment of the radial-capitellum andulnohumeral articulations. The proximal radioulnar joint is congruent. Large elbow effusion. No intra-articular body. Soft tissue: There is marked posterior elbow soft tissue swelling. The triceps tendonis intact by CT. IMPRESSION 1. Minimally comminuted, displaced coronoid process fracture, as asequela from posterior elbow dislocation, involving < 50 % of the coronoid processarticular surface (O?[place] Type 2) 2. Large elbow effusion 3. Marked posterior elbow soft tissue swelling. Thank you for letting us participate in the care of this patient. If youare a health care provider and have any questions regarding this report,please contact the number below. For patients who have questions please contactthe health healthcare analyst that requested your imaging first. Noreen Santos MD IMG CT ORDERABLES documented in this encounter Visit Diagnoses Diagnosis Elbow injury, right, initial encounter documented in this encounter Care Teams Transformer Repairer Relationship Specialty Start Date End Date Kaia Nolasco APRN [address] [place] [address] PCP - General Family Medicine 02/22/18 documented as of this encounter
--- OUTSIDE RECORDS SUMMARY | 2024-02-11 07:36 | XMS_ITS | Encounter Summary ---
Author Organization [facility] Address [address] [place] [address] Care Team Providers Care Teaching Assistant Name Role Phone Unavailable Primary Care Provider Unavailabl e Encounter Details Date Type Department Care Team (Late st Contact Info) Description 02/11/2020 Lab Requisition [facility] Pathology & Laboratory Medicine - [facility] [address] [place] [address] Outr Resulting Lab, Provider Social History Tobacco Use Types Packs/Day Years Used Date Smoking Tobacco: Never Assessed Sex and Gender Information Value Date Recorded Sex Assigned at Not on file Legal Sex Male 18:05 EST Gender Identity Not on file Sexual Orientation Not on file documented as of this encounter Plan of Treatment Not on file documented as of this encounter Procedures Procedure Name Priority Date/Time Associated Diagnosis Comments HCV RNA DETECT QUANT Routine 02/10/2020 12:45 EST HEPATITIS B SURFACE ANTIGEN Routine 02/10/2020 12:45 EST documented in this encounter Results * (ABNORMAL) HCV RNA DETECT QUANT (02/10/2020 12:45 EST) HCV RNA Qualitative Detected( A) Undetected 02/12/2020 14:02 EST [facility] HCV RNA Quantitative 266,164(H ) Undetected IU/mL 02/12/2020 14:02 EST [facility] Blood VENOUS BLOOD / Unknown 02/10/2020 12:45 EST 02/11/2020 15:56 EST Narrative [facility] - 02/12/2020 14:02 EST The quantification range of this assay is 15 IU/mL to 100,000,000 IU/mL. ??Testing was performed on the LILLIAN Ampliprep/LILLIAN TaqMan HCV v2.0 ([employer] us Provider Outr Resulting Lab CHEMISTRY & BLOOD GA S ORDERABLES Final Result Performing Organization Address [facility] Co de Phone Number [facility] [address] [place] [address] * HEPATITIS B SURFACE ANTIGEN (02/10/2020 12:45 EST) Hep B Surface Ag Negative Negative 02/12/2020 9:19 EST [facility] Blood VENOUS BLOOD / Unknown 02/10/2020 12:45 EST 02/11/2020 15:56 EST us Provider Outr Resulting Lab CHEMISTRY & BLOOD GA S ORDERABLES Final Result Performing Organization Address [facility] Co de Phone Number [facility] [address] [place] [address] documented in this encounter Visit Diagnoses Not on filedocumented in this encounter
--- OUTSIDE RECORDS SUMMARY | 2024-02-11 07:36 | XMS_ITS | Clinical Summary ---
Author Organization [facility] Address [address] [place] [address] Care Team Providers Care Muck Operator Name Role Phone Unavailable Primary Care Provider Unavailabl e Social History Tobacco Use Types Packs/Day Years Used Date Smoking Tobacco: Never Assessed Sex and Gender Information Value Date Recorded Sex Assigned at Not on file Legal Sex Male 18:05 EST Gender Identity Not on file Sexual Orientation Not on file Plan of Treatment Health Maintenance Due Date Last Done Comments Hepatitis B Vaccine (1 of - 19+ 3-dose series) 2012 COVID-19 Vaccine (2023-2 5 season) 2023 Hepatitis C Screen Completed 02/21/2021, 0 04/05/2020, 02/10/2020, Additional history exists Procedures Procedure Name Priority Date/Time Associated Diagnosis Comments HCV RNA DETECT QUANT Routine 02/21/2021 10:45 EST from Last 3 Months or Most Recently Relevant to Health Maintenance Results * HCV RNA DETECT QUANT (02/21/2021 10:45 EST) HCV RNA Qualitative Undetected Undetected 02/23/2021 14:50 EST [facility] Blood VENOUS BLOOD / Unknown 02/21/2021 10:45 EST 02/22/2021 16:11 EST Narrative [facility] - 02/23/2021 14:50 EST New platform in use 08/30/2020 The quantification range of this assay is 15 IU/mL to 100,000,000 IU/mL. Testing was performed using the Margarito HCV test ([employer] with the margarito [employer] System. us Provider Outr Resulting Lab CHEMISTRY & BLOOD GA S ORDERABLES Final Result [facility] [address] [place] [address] from Last 3 Months or Most Recently Relevant to Health Maintenance
--- OUTSIDE RECORDS SUMMARY | 2024-02-11 07:36 | XMS_ITS | Encounter Summary ---
Author Organization [facility]ly [facility], [facility] Address [facility] [place] [address] Care Team Providers Care Bullet Casting Operator Name Role Phone Kaia Nolasco APRN Primary Care Provider [phone] [phone] Encounter Details Date Type Department Care Team (Latest Contact Info) Description 08/23/2023 11:42 AM EDT - 08/23/2023 11:59 PM EDT Hospital Encounter XRay at [address] [place] [address] Noreen Santos MD [facility] [place] [address] Elbow injury, right, initial encounter Discharge Disposition: [...] 12 hours as needed for Anxiety. 08/21/2023 hydrOXYzine (Atarax) 25 mg tablet Take 25 mg by mouth 3 times daily as needed for Itching. documented as of this encounter Plan of Treatment Not on file documented as of this encounter Procedures Procedure Name Priority Date/Time Associated Diagnosis Comments XR HUMERUS RIGHT Routine 08/23/2023 11:5 8 AM EDT Elbow injury, right, initial encounter XR FOREARM RIGHT Routine 08/23/2023 11:5 8 AM EDT Elbow injury, right, initial encounter documented in this encounter Results * XR Humerus Right (Generic) (08/23/2023 11:58 AM EDT) WORKSTATION ID [id number] RAD Anatomical Region Laterality Modality Arm Right Digital Radiogra phy Impressions 08/23/2023 2:13 PM EDT No acute fracture or malalignment of the humerus. Thank you for letting us participate in the care of this patient. ??If you are a health care provider and have any questions regarding this report, please contact the number below. ??For patients who have questions please contact the health skin care technician that requested your imaging first. ? Narrative 08/23/2023 2:13 PM EDT EXAMINATION: XR HUMERUS RIGHT (GENERIC) CLINICAL HISTORY: Right elbow fx dislocation Doi 08/20/2023 (reduced), xr in splint S59.901A, Unspecified injury of right elbow, initial encounter TECHNIQUE: 2 views RIGHT humerus COMPARISON: Right elbow CT 08/23/2023 FINDINGS: Displaced coronoid process fracture at the elbow is redemonstrated. No acute fracture or malalignment of the humerus. No osseous lesion. Visualized right lung is clear. Procedure Note Govind Tapia MD - 08/23/2023 EXAMINATION: XR HUMERUS RIGHT (GENERIC) CLINICAL HISTORY: Right elbow fx dislocation Doi 08/20/2023 (reduced), xrin splint S59.901A, Unspecified injury of right elbow, initial encounter TECHNIQUE: 2 views RIGHT humerus COMPARISON: Right elbow CT 08/23/2023 FINDINGS: Displaced coronoid process fracture at the elbow is redemonstrated. Noacute fracture or malalignment of the humerus. No osseous lesion. Visualizedright lung is clear. IMPRESSION No acute fracture or malalignment of the humerus. Thank you for letting us participate in the care of this patient. If youare a health care provider and have any questions regarding this report,please contact the number below. For patients who have questions please contactthe health skin care technician that requested your imaging first. Electronically signed by: Govind Tapia MD, [facility]([phone]), at 08/23/2023 2:13 PM Noreen Nikki Santos MD IMG DX ORDERABLES * XR Forearm Right (Generic) (08/23/2023 11:58 AM EDT) WORKSTATION ID [id number] RAD Anatomical Region Laterality Modality Forearm Right Digital Radiogra phy Impressions 08/23/2023 2:14 PM EDT 1. ??Displaced coronoid process fracture redemonstrated. 2. ??No other fracture or malalignment. Thank you for letting us participate in the care of this patient. ??If you are a health care provider and have any questions regarding this report, please contact the number below. ??For patients who have questions please contact the health skin care technician that requested your imaging first. ? Electronically signed by: Govind Tapia MD, [facility] ??([phone]), at 08/23/2023 2:14 PM Narrative 08/23/2023 2:14 PM EDT EXAMINATION: XR FOREARM RIGHT (GENERIC) CLINICAL HISTORY: Right elbow fx dislocation Doi 08/20/2023 (reduced) S59.901A, Unspecified injury of right elbow, initial encounter TECHNIQUE: 2 views RIGHT forearm COMPARISON: Right elbow CT 08/23/2023 FINDINGS: Displaced coronoid process fracture fragment is again seen. Small elbow joint effusion. No additional fracture or malalignment. Posterior cast material. Procedure Note Govind Tapia MD - 08/23/2023 EXAMINATION: XR FOREARM RIGHT (GENERIC) CLINICAL HISTORY: Right elbow fx dislocation Doi 08/20/2023 (reduced) S59.901A, Unspecified injury of right elbow, initial encounter TECHNIQUE: 2 views RIGHT forearm COMPARISON: Right elbow CT 08/23/2023 FINDINGS: Displaced coronoid process fracture fragment is again seen. Small elbowjoint effusion. No additional fracture or malalignment. Posterior castmaterial. IMPRESSION 1. Displaced coronoid process fracture redemonstrated. 2. No other fracture or malalignment. Thank you for letting us participate in the care of this patient. If youare a health care provider and have any questions regarding this report,please contact the number below. For patients who have questions please contactthe health skin care technician that requested your imaging first. Electronically signed by: Govind Tapia MD, [facility]([phone]), at 08/23/2023 2:14 PM Noreen Santos MD IMG DX ORDERABLES documented in this encounter Visit Diagnoses Diagnosis Elbow injury, right, initial encounter documented in this encounter Care Teams Bullet Casting Operator Relationship Specialty Start Date End Date Kaia Nolasco APRN [address] [place] [address] PCP - General Family Medicine 02/22/18 documented as of this encounter
--- OUTSIDE RECORDS SUMMARY | 2024-02-11 07:36 | XMS_ITS | Encounter Summary ---
Author Organization [facility] Address [address] [place] [address] Care Team Providers Care Nurse College Name Role Phone Unavailable Primary Care Provider Unavailabl e Encounter Details Date Type Department Care Team (Late st Contact Info) Description 02/22/2021 Lab Requisition [facility] Pathology & Laboratory Medicine - [facility] [address], [place] [id number] Outr Resulting Lab, Provider Social History Tobacco [...] RNA DETECT QUANT Routine 02/21/2021 10:45 EST documented in this encounter Results * HCV RNA DETECT QUANT (02/21/2021 10:45 EST) HCV RNA Qualitative Undetected Undetected 02/23/2021 14:50 EST [facility] Blood VENOUS BLOOD / Unknown 02/21/2021 10:45 EST 02/22/2021 16:11 EST Narrative [facility] - 02/23/2021 14:50 EST New platform in use 08/30/2020 The quantification range of this assay is 15 IU/mL to 100,000,000 IU/mL. Testing was performed using the Margarito HCV test ([employer] with the margarito Gradeable0 System. us Provider Outr Resulting Lab CHEMISTRY & BLOOD GA S ORDERABLES Final Result [facility] [address] [place] [address] documented in this encounter Visit Diagnoses Not on filedocumented in this encounter
--- OUTSIDE RECORDS SUMMARY | 2024-02-11 07:36 | XMS_ITS | Encounter Summary ---
Author Organization [facility] Address [facility] [place] [address] Care Team Providers Care Haulpak Driver Name Role Phone Kaia Nolasco APRN Primary Care Provider [phone] Reason for Referral * Diagnostic Test (STAT) - Closed Specialty Diagnoses / Procedures Referred By Contac t Referred To Contact Radiology Diagnoses Elbow injury, right, initial encounter Procedures CT Elbow wo Contrast Right (Generic) Noreen Santos MD [facility] [place] [address] [facility] [place] [address] Referral ID Status Reason Start Date Expiration Date V isits Requested Visits Authorized [id number] Closed Specialty Service Requested 08/21/2023 02/20/2025 1 1 Encounter Details Date Type Department Care Team (Late st Contact Info) Description 08/21/2023 Orders [place] [address] Noreen Santos MD [facility] [place] [address] Elbow injury, right, initial encounter Social History Tobacco Use Types Packs/Day Years Used Date Smoking Tobacco: Never Assessed Sex and Gender Information Value Date Recorded Sex Assigned at Not on file Gender Identity Not on file Sexual Orientation Not on file documented as of this encounter Plan of Treatment Not on file documented as of this encounter Results * XR Humerus Right (Generic) (08/23/2023 11:58 AM EDT) Nano Signature WORKSTATION ID [id number] RAD Anatomical Region Laterality Modality Arm Right Digital Radiogra phy Impressions 08/23/2023 2:13 PM EDT No acute fracture or malalignment of the humerus. Thank you for letting us participate in the care of this patient. ??If you are a health care provider and have any questions regarding this report, please contact the number below. ??For patients who have questions please contact the health intensive care unit registered nurse that requested your imaging first. ? Electronically signed by: Govind Tapia MD, [facility] ??([phone]), at 08/23/2023 2:13 PM Narrative 08/23/2023 2:13 PM EDT EXAMINATION: XR [...] patients who have questions please contactthe health intensive care unit registered nurse that requested your imaging first. Electronically signed by: Govind Tapia MD, [facility]([phone]), at 08/23/2023 2:13 PM Noreen Santos MD IMG DX ORDERABLES * XR Forearm Right (Generic) (08/23/2023 11:58 AM EDT) Nano Signature WORKSTATION ID [id number] RAD Anatomical Region Laterality Modality Forearm Right [...] who have questions please contact the health intensive care unit registered nurse that requested your imaging first. ? Electronically signed by: Govind Tapia MD, [facility] ??([phone]), at 08/23/2023 2:14 PM Narrative 08/23/2023 2:14 [...] patients who have questions please contactthe health intensive care unit registered nurse that requested your imaging first. Electronically signed by: Govind Tapia MD, [facility]([phone]), at 08/23/2023 2:14 PM Noreen Santos MD IMG DX ORDERABLES * CT Elbow wo Contrast Right (Generic) (08/23/2023 10:26 AM EDT) WORKSTATION ID [id number] RAD Anatomical Region Laterality Modality Elbow Right Computed Tomogra phy Impressions 08/23/2023 10:56 AM EDT 1. ??Minimally comminuted, displaced coronoid process fracture, as a sequela from posterior elbow dislocation, involving < 50 % of the coronoid process articular surface (O?Hardy Type 2) 2. ??Large elbow effusion 3. ??Marked posterior elbow soft tissue swelling. Thank you for letting us participate in the care of this patient. ??If you are a health care provider and have any questions regarding this report, please contact the number below. ??For patients who have questions please contact the health intensive care unit registered nurse that requested your imaging first. ? Electronically signed by: Edgar Howell MD, [facility] ([phone]), at 08/23/2023 10:56 AM Narrative 08/23/2023 10:56 AM EDT EXAMINATION: CT [...] involves less than 50 % articular surface (O?Troy Type 2). ??No additional fracture. Maintained spacing [...] fracture involves less than 50 % articular surface(O?Troy Type 2). No additional fracture. Maintained spacing [...] 50 % of the coronoid processarticular surface (O?Troy Type 2) 2. Large elbow effusion 3. Marked posterior elbow soft tissue swelling. Thank you for letting us participate in the care of this patient. If youare a health care provider and have any questions regarding this report,please contact the number below. For patients who have questions please contactthe health intensive care unit registered nurse that requested your imaging first. Electronically signed by: Edgar Howell MD, [facility]([phone]), at 08/23/2023 10:56 AM Noreen Santos MD IMG CT ORDERABLES documented in this encounter Visit Diagnoses Diagnosis Elbow injury, right, initial encounter Elbow injury, right, initial encounter Elbow injury, right, initial encounter documented in this encounter Care Teams Haulpak Driver Relationship Specialty Start Date End Date Kaia Nolasco APRN [address] [place] [address] [address] [place] [address] PCP - General Family Medicine 02/22/18 documented as of this encounter
--- OUTSIDE RECORDS SUMMARY | 2024-02-11 07:36 | XMS_ITS | Encounter Summary ---
Author Organization [facility] [place] [address] Care Team Providers Care Telegraph Messenger Name Role Phone Kaia Nolasco APRN Primary Care Provider [phone] Encounter Details Date Type Department Care Team (Late st Contact Info) Description 08/20/2023 Telephone [place] [id number] Carolina Rolle MD [facility] [place] [address] Social History Tobacco Use Types Packs/Day Years Used Date Smoking Tobacco: Never Assessed Sex and Gender Information Value Date Recorded Sex Assigned at Not on file Gender Identity Not on file Sexual Orientation Not on file documented as of this encounter Miscellaneous Notes * Telephone Encounter - Carolina Rolle MD - 08/20/2023 3:53 PM EDT TC Call: TARYN Griffin Patient is 27yoM otherwise healthy who fell off a 6 ft ladder sustaining an injury to the right elbow. Talked to the provider within 30 minutes of the original page time and the patient had already beendischarged from the emergency department prior to discussing in consultation with me. It was reported to me that the patient had an isolated elbow fracture dislocation and this was reduced however there was no confirmation with other views aside from the 1 suboptimal lateral radiograph that was obtained. From what I can tell on the limited views it appears he had a fracture dislocation involving the coronoid potentially as donor site. I recommended they obtain 3 views of the elbow, x-rays of the forearm, and a CT scan at least as anoutpatient given the patient is no longer present in their care. There was no ability to obtain these images per my request given patient no longer there in their ED. They will be referring this patient to our outpatient surgical services. Again my recommendations were extremely limited given the patient was no longer present in the care of the consulting provider. I asked for this call to be flagged given the above: 1) consulted for recommendations AFTER patientdischarged from their care. 2) consulted through the transfer center for a referral to our outpatient services. Carolina Rolle MD documented in this encounter Plan of Treatment Not on file documented as of this encounter Visit Diagnoses Not on filedocumented in this encounter Care Teams Telegraph Messenger Relationship Specialty Start Date End Date Kaia Nolasco APRN [address] [place] [address] PCP - General Family Medicine 02/22/18 documented as of this encounter
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
--- OUTSIDE RECORDS SUMMARY | 2024-02-11 07:36 | XMS_ITS | Encounter Summary ---
Author Organization [facility] Address [address] [place] [address] Care Team Providers Care Melter Supervisor Oxygen Furnace Name Role Phone Unavailable Primary Care Provider Unavailabl e Encounter Details Date Type Department Care Team (Late st Contact Info) Description 04/04/2019 Lab Requisition [facility] Pathology & Laboratory Medicine - [facility] [address] [place] [address] Unknown, Provider, Social History Tobacco Use Types Packs/Day Years [...] Associated Diagnosis Comments HCV RNA DETECT QUANT Today 04/03/2019 17:00 EST HEPATITIS C AB W REFLEX TO HCV RNA BY PCR Routine 04/03/2019 17:00 EST HEPATITIS A TOTAL ANTIBODY W REFLEX Routine 04/03/2019 17:00 EST HEPATITIS B SURFACE ANTIBODY Routine 04/03/2019 17:00 EST documented in this encounter Results * (ABNORMAL) HCV RNA DETECT QUANT (04/03/2019 17:00 EST) HCV RNA Quantitative 112,616(H ) Undetected IU/mL 04/08/2019 13:58 EST [facility] Comment:Detected Blood VENOUS BLOOD / Unknown 04/03/2019 17:00 EST 04/04/2019 15:30 EST Narrative [facility] - 04/08/2019 13:58 EST The quantification range of this assay is 15 IU/mL to 100,000,000 IU/mL. ??Testing was performed on the LILLIAN Ampliprep/LILLIAN TaqMan HCV v2.0 ([employer] us Provider Unknown CHEMISTRY & BLOOD GAS ORDERA BLES Final Result Performing Organization Address [facility] Co de Phone Number [facility] [address] [place] [address] * HEPATITIS B SURFACE ANTIBODY (04/03/2019 17:00 EST) Hep B Surface Ab, Quantitative <3.1 See Note mIU/mL 04/07/2019 9:52 EST [facility] Comment: Reference Range for Hep B Surface Ab, Quant: Positive: >= 10.0 mIU/mL Negative: ??< 10.0 mIU/mL Patient is presumed to not be immune to infection with Hepatitis B Virus. Hep B Surface Ab, Qualitative Negative See Note 04/07/2019 9:52 EST [facility] Comment: Reference Range for Hep B Surface Ab, Qual: Unvaccinated: ??Negative Vaccinated: ??Positive Blood VENOUS BLOOD / Unknown 04/03/2019 17:00 EST 04/04/2019 15:30 EST us Provider Unknown CHEMISTRY & BLOOD GAS ORDERA BLES Final Result Performing Organization Address [facility] Co de Phone Number [facility] [address] [place] [address] * (ABNORMAL) HEPATITIS C AB W REFLEX TO HCV RNA BY PCR (04/03/2019 17:00 EST) Hep C Antibody Reactive(A ) Negative 04/07/2019 11:43 EST [facility] Comment: Supplemental testing for HCV RNA is ordered to rule out active HCV infection. Blood VENOUS BLOOD / Unknown 04/03/2019 17:00 EST 04/04/2019 15:30 EST us Provider Unknown CHEMISTRY & BLOOD GAS ORDERA BLES Final Result Performing Organization Address [facility] Co de Phone Number [facility] [address] [place] [address] * HEPATITIS A TOTAL ANTIBODY W REFLEX (04/03/2019 17:00 EST) Hepatitis A Antibody, Total Negative Negative 04/07/2019 11:44 EST [facility] Blood VENOUS BLOOD / Unknown 04/03/2019 17:00 EST 04/04/2019 15:30 EST Narrative [facility] - 04/07/2019 11:44 EST The result of this assay can be falsely elevated (Positive) due to the consumption of Biotin. us Provider Unknown MD CHEMISTRY & BLOOD GAS ORDERA BLES Final Result Performing Organization Address [facility] Co de Phone Number [facility] [address] [place] [address] documented in this encounter Visit Diagnoses Not on filedocumented in this encounter
--- OUTSIDE RECORDS SUMMARY | 2024-02-11 07:36 | XMS_ITS | Clinical Summary ---
Author Organization [facility] Address [facility] [place] [address] Care Team Providers Care Skin Former Name Role Phone Kaia Nolasco APRN Primary Care Provider [phone] Allergies No known active allergies Medications Medication Sig Dispensed Refills Start Date End Date Status cloNIDine (Catapres) 0.1 mg tablet Take 1 tablet by mouth every 12 hours as needed for Anxiety. 08/21/2023 Active hydrOXYzine (Atarax) 25 mg tablet Take 25 mg by mouth 3 times daily as needed for Itching. Active aspirin EC 81 mg EC (DR) tablet Take 1 tablet by mouth 2 times daily. 60 tablet 08/27/2023 Active traMADoL (Ultram) 50 mg tablet Take 1 tablet by mouth every 6 hours as needed for Pain. 20 tablet 08/27/2023 Active Active Problems Problem Noted Date Diagnosed Date Olecranon fx, radial head fr acture, coronoid fracture s/p radial head replacement, coronoid ORIF, and olecranon ORIF (Gitajn 08/27/23) 08/27/2023 Family History Medical History Relation Comments Diabetes Neg Hx Social History Tobacco Use Types Packs/Day Years Used Date Smoking Tobacco: Every Day Cigarettes Smokeless Tobacco: Never Tobacco Cessation:Ready to Q uit: Not Asked; Counseling Given: Not Answered Alcohol Use Standard Drinks/Week Comments Yes 0 [...] on file Sexual Orientation Not on file Last Filed Vital Signs Vital Sign Reading Time Taken Comments Blood Pressure 152/100 08/27/2023 8:45 PM EDT called back and Ok to D/C with this BP. Pulse 97 08/27/2023 8:45 PM EDT Temperature 38.3 ??C (100.9 ??F) 08/27/2023 8:[address] Mathur called back regrading the temp. and instructed patient to continue monitoring at home and report to clinic if fever presistant. Respiratory Rate 12 08/27/2023 8:45 PM EDT Oxygen Saturation 98% 08/27/2023 8:4 5 PM EDT Inhaled Oxygen Concentration - - Weight 69.2 kg (152 lb 8 oz) 08/27/2023 1:33 PM EDT Height 182.9 cm (6') 08/27/2023 1:33 PM EDT Body Mass Index 20.68 08/27/2023 1:33 PM EDT Plan of Treatment Health Maintenance Due Date Last Done Comments HIV screen 09/19/2011 Hepatitis C Screening 09/19/2011 Lipid Screening 09/19/2011 Hepatitis B vaccine (0-59 yrs) (1) 2012 Pneumococcal Vaccine: At-Risk 5-64yrs (1 of 2 - PCV) 0 2012 Tetanus/Diphtheria/Pertussis Vaccines (1 - Tdap) 09/18 Covid-19 Vaccine (1 - season) 2023 Influenza (Flu) vaccine (1 o f 1 - Influenza standard series) 10/07/2023 Medical Devices Implanted Type Area Correctional Therapy Director Device Identifier Shelf Expiration Date Model / Serial / Lot Screw 2.0x30mm Allen Nlck Ft Ti T6 Variax ([id number]) (Autoreq) - [id number] Implanted:Qty: 1 on 08/27/2023 by Noreen Santos MD at [facility] IMPLANTS Right: Arm [employer] - ADORE [id number] / / Screw 2.0x32mm Allen Nlck Ft Ti T6 Variax ([id number]) (Autoreq) - [id number] Implanted:Qty: 1 on 08/27/2023 by Noreen Santos MD at [facility] IMPLANTS Right: Arm [employer] - ADORE [id number] / / Screw 2.0x28mm Allen Nlck Ft Ti T6 Variax ([id number]) (Autoreq) - [id number] Implanted:Qty: 1 on 08/27/2023 by Noreen Santos MD at [facility] IMPLANTS Right: Arm [employer] - ADORE [id number] / / Plate 2.0x62mm T Shape 5x10 Hole Narrow Lck Variax ([id number]) (Autoreq) - [id number] Implanted:Qty: 1 on 08/27/2023 by Noreen Santos MD at [facility] IMPLANTS Right: Arm [employer] - ADORE [id number] / / Screw 2.0x26mm Allen Nlck Ft Ti T6 Variax ([id number]) (Autoreq) - [id number] Implanted:Qty: 1 on 08/27/2023 by Noreen Santos MD at [facility] IMPLANTS Right: [facility] [employer] - ADORE [id number] / / Screw 2.0x34mm Allen Nlck Ft Ti T6 Variax ([id number]) (Autoreq) - [id number] Implanted:Qty: 2 on 08/27/2023 by Noreen Santos MD at [facility] IMPLANTS Right: [facility] [employer] ADORE [id number] / / Explanted Type Area Correctional Therapy Director Device Identifier Shelf Expiration Date Model / Serial / Lot K Wire Fix [id number] [place] Sgl End Ss Variax ([id number]) - [id number] Explanted:Qty: 3 on 08/27/2023 at [facility] IMPLANTS Right: Arm [employer] - ADORE [id number] / / Screw 2.0x22mm Allen Nlck Ft Ti T6 Variax ([id number]) (Autoreq) - [id number] Explanted:Qty: 1 on 08/27/2023 at [facility] IMPLANTS Right: Arm ADORE [employer] - ADORE [id number] / / Screw 2.0x40mm Allen Nlck Ft Ti T6 Variax ([id number]) (Autoreq) - [id number] Explanted:Qty: 1 on 08/27/2023 at [facility] IMPLANTS Right: Arm ADORE [employer] - ADORE [id number] / / Advance Directives Documents on File Type Date Recorded Patient Registered Nurse Hh Case Manager Expl anation Personal Registered Nurse Hh Case Manager 08/23/2023 2:58 PM Care Teams Skin Former Relationship Specialty Start Date End Date Kaia Nolasco APRN [address] [place], [place] [id number] PCP - General Family Medicine 02/22/18
--- OUTSIDE RECORDS SUMMARY | 2024-02-11 07:36 | XMS_ITS | Referral Summary ---
Author Organization [facility] Address [address] [place] [address] Care Team Providers Care Senior Foreman Name Role Phone Unavailable Primary Care Provider Unavailabl e Social History Tobacco Use Types Packs/Day Years Used Date Smoking Tobacco: Never Assessed Sex and Gender Information Value Date Recorded Sex Assigned at Not on file Legal Sex Male 18:05 EST Gender Identity Not on file Sexual Orientation Not on file Plan of Treatment Not on file Procedures Procedure Name Priority Date/Time Associated Diagnosis Comments HCV RNA DETECT QUANT Routine 02/21/2021 10:45 EST from Last 3 Months or Most Recently Relevant to Health Maintenance Results * HCV RNA DETECT QUANT (02/21/2021 10:45 EST) HCV RNA Qualitative Undetected Undetected 02/23/2021 14:50 EST [facility] Blood VENOUS BLOOD / Unknown 02/21/2021 10:45 EST 02/22/2021 16:11 EST Narrative [facility] - 02/23/2021 14:50 EST New platform in use 08/30/2020 The quantification range of this assay is 15 IU/mL to 100,000,000 IU/mL. Testing was performed using the Margarito HCV test ([employer] with the margarito 6800 System. us Provider Outr Resulting Lab CHEMISTRY & BLOOD GA S ORDERABLES Final Result [facility] [address] [place] [address] from Last 3 Months or Most Recently Relevant to Health Maintenance
--- OUTSIDE RECORDS SUMMARY | 2024-02-11 07:36 | XMS_ITS | Encounter Summary ---
Author Organization [facility] [place] [address] Care Team Providers Care Blanket Winder Operator Name Role Phone Kaia Nolasco APRN Primary Care Provider Encounter Details Date Type Department Care Team (Late st Contact Info) Description 08/20/2023 2:30 PM EDT Ancillary Procedure Radiology Library at [facility] [place] [phone] Kaia Nolasco APRN [address] [place], [place] [address] Social History Tobacco Use Types Packs/Day Years Used Date Smoking Tobacco: Never Assessed Sex and Gender Information Value Date Recorded Sex Assigned at Not on file Gender Identity Not on file Sexual Orientation Not on file documented as of this encounter Plan of Treatment Not on file documented as of this encounter Procedures Procedure Name Priority Date/Time Associated Diagnosis Comments FILM LIBRARY STORAGE ONLY DX ELBOW Routine 08/20/2023 2:29 PM EDT documented in this encounter Results * Film Library- Storage Only DX Elbow (08/20/2023 2:29 PM EDT) Narrative GEOVANY - 08/20/2023 2:29 PM EDT This exam is auto-finalizing. It's purpose is for storage only. Kaia Nolasco APRN IMG FILM LIBRARY OR DERABLES [facility] [place] documented in this encounter Visit Diagnoses Not on filedocumented in this encounter Care Teams Blanket Winder Operator Relationship Specialty Start Date End Date Kaia Nolasco APRN [address] [facility] [address] [place] [address] PCP - General Family Medicine 02/22/18 documented as of this encounter
--- OUTSIDE RECORDS SUMMARY | 2024-02-11 07:36 | XMS_ITS | Encounter Summary ---
Author Organization [facility] Address [address] [place] [address] Care Team Providers Care Human Services Program Specialist Name Role Phone Unavailable Primary Care Provider Unavailabl e Encounter Details Date Type Department Care Team (Late st Contact Info) Description 07/13/2019 Lab Requisition [facility] Pathology & Laboratory Medicine - [facility] [address] [place] [address] Outr Resulting Lab, Provider Social History Tobacco [...] Procedure Name Priority Date/Time Associated Diagnosis Comments HIV 1/2 ANTIGEN AND ANTIBODY, 4TH GENERATION Routine 07/11/2019 10:30 EDT documented in this encounter Results * HIV 1/2 ANTIGEN AND ANTIBODY, 4TH GENERATION (07/11/2019 10:30 EDT) HIV 1 and 2 Antibody/p24 Antigen, 4th Generation Negative Negative 07/14/2019 10:53 EDT [facility] Comment: If acute HIV-1 infection is suspected in a high risk ??patient, submit plasma specimen for HIV-1 RNA quantitation test. Fourth Generation assay performed on the Siemens Centaur. Blood VENOUS BLOOD / Unknown 07/11/2019 10:30 EDT 07/13/2019 16:08 EDT us Provider Outr Resulting Lab IMMUNOLOGY AND SEROL OGY ORDERABLES Final Result [facility] [address] [place] [address] documented in this encounter Visit Diagnoses Not on filedocumented in this encounter
--- OUTSIDE RECORDS SUMMARY | 2024-02-11 07:36 | XMS_ITS | Encounter Summary ---
Author Organization [facility] Address [address] [place] [address] Care Team Providers Care Senior Windows Administrator Name Role Phone Unavailable Primary Care Provider Unavailabl e Encounter Details Date Type Department Care Team (Late st Contact Info) Description 02/22/2021 Lab Requisition [facility] Pathology & Laboratory Medicine - [facility] [address] [place], [place] [phone] Outr Resulting Lab, Provider Social History Tobacco [...] 1/2 ANTIGEN AND ANTIBODY, 4TH GENERATION Routine 02/21/2021 10:45 EST documented in this encounter Results * HIV 1/2 ANTIGEN AND ANTIBODY, 4TH GENERATION (02/21/2021 10:45 EST) HIV 1 and 2 Antibody/p24 Antigen, 4th Generation Negative Negative 02/23/2021 10:54 EST [facility] Comment:If acute HIV-1 infec tion is suspected in a high risk patient, submit plasma specimen for HIV-1 RNA quantitation test. Blood VENOUS BLOOD / Unknown 02/21/2021 10:45 EST 02/22/2021 16:11 EST Narrative [facility] - 02/23/2021 10:54 EST Fourth Generation assay performed on the Siemens valuklikaur XPT. us Provider Outr Resulting Lab IMMUNOLOGY AND SEROL OGY ORDERABLES Final Result [facility] [address] [place] [address] documented in this encounter Visit Diagnoses Not on filedocumented in this encounter
--- OUTSIDE RECORDS SUMMARY | 2024-02-11 07:36 | XMS_ITS | Encounter Summary ---
Author Organization [facility] [place] [address] Care Team Providers Care Saw Boss Name Role Phone Kaia Nolasco APRN Primary Care Provider [phone] Encounter Details Date Type Department Care Team (Late st Contact Info) Description 08/20/2023 2:35 PM EDT Ancillary Procedure Radiology Library at [facility] [place] [phone] Kaia Nolasco APRN [address] [place], [place] [id number] Social History Tobacco Use Types Packs/Day Years [...] LIBRARY STORAGE ONLY DX ELBOW Routine 08/20/2023 2:30 PM EDT documented in this encounter Results * Film Library- Storage Only DX Elbow (08/20/2023 2:30 PM EDT) Narrative GE[facility] - 08/20/2023 2:30 PM EDT This exam is auto-finalizing. It's purpose is for storage only. Kaia Nolasco APRN IMG FILM LIBRARY OR DERABLES [facility] [place] documented in this encounter Visit Diagnoses Not on filedocumented in this encounter Care Teams Saw Boss Relationship Specialty Start Date End Date Kaia Nolasco APRN [address] [facility] [address] [place] [address] PCP - General Family Medicine 02/22/18 documented as of this encounter
--- OUTSIDE RECORDS SUMMARY | 2024-02-11 07:36 | XMS_ITS | Encounter Summary ---
Author Organization [facility] Address [facility] [place] [address] Care Team Providers Care Oral Hygienist Name Role Phone Kaia Nolasco APRN Primary Care Provider [phone] Reason for Visit * Reason Onset Date Comments Appointment 09/21/2023 Encounter Details Date Type Department Care Team (Late st Contact Info) Description 09/21/2023 Telephone [place] [phone] Cynthia Muro, PA [facility] [address] [place] [address] Appointment Social History Tobacco Use Types Packs/Day Years [...] encounter Miscellaneous Notes * Telephone Encounter - Natalie Rizzo - 09/26/2023 2:42 PM EDT Patient has not returned calls to get rescheduled. Mailed a letter to address on file 8/21/24. * Telephone Encounter - Natalie Rizzo - 09/24/2023 10:54 AM EDT Lm #2 to reschedule missed HCK from 09/20 from missed HCK on 09/13. Please reschedule Cast off, XR and HCK. Co XR RIGHT elbow dislocation, coronoid ORIF DOS 08/27/23 (Gitajn) * Telephone Encounter - Earlene Wellington - 09/21/2023 9:49 AM EDT Lm #1 to reschedule missed HCK from 09/20 from missed HCK on 09/13. Please reschedule Cast off, XR and HCK. Co XR RIGHT elbow dislocation, coronoid ORIF DOS 08/27/23 (Gitajn) documented in this encounter Plan of Treatment Not on file documented as of this encounter Visit Diagnoses Not on filedocumented in this encounter Care Teams Oral Hygienist Relationship Specialty Start Date End Date Kaia Nolasco APRN [address] [place] [address] PCP - General Family Medicine 02/22/18 documented as of this encounter
--- OUTSIDE RECORDS SUMMARY | 2024-02-11 07:36 | XMS_ITS | Encounter Summary ---
Author Organization [facility] Address [address] [place] [address] Care Team Providers Care Insulation Worker Interior Surface Name Role Phone Unavailable Primary Care Provider Unavailabl e Encounter Details Date Type Department Care Team (Late st Contact Info) Description 02/11/2020 Lab Requisition [facility] Pathology & Laboratory Medicine - [facility] [address] [place] [address] Outr Resulting Lab, Provider Social History Tobacco [...] 1/2 ANTIGEN AND ANTIBODY, 4TH GENERATION Routine 02/10/2020 12:45 EST documented in this encounter Results * HIV 1/2 ANTIGEN AND ANTIBODY, 4TH GENERATION (02/10/2020 12:45 EST) HIV 1 and 2 Antibody/p24 Antigen, 4th Generation Negative Negative 02/12/2020 10:[address] [facility] Comment: If acute HIV-1 infection is suspected in a high risk ??patient, submit plasma specimen for HIV-1 RNA quantitation test. Fourth Generation assay performed on the Siemens Centaur. Blood VENOUS BLOOD / Unknown 02/10/2020 12:45 EST 02/11/2020 15:56 EST us Provider Outr Resulting Lab IMMUNOLOGY AND SEROL OGY ORDERABLES Final Result [facility] [address] [place] [address] documented in this encounter Visit Diagnoses Not on filedocumented in this encounter
--- OUTSIDE RECORDS SUMMARY | 2024-02-11 07:36 | XMS_ITS | Encounter Summary ---
Author Organization [facility] Address [facility] [address] d[address] [place] [id number] Care Team Providers Care Juice Mixer Name Role Phone Kaia Nolasco APRN Primary Care Provider [phone] Reason for Visit * Reason Comments Elbow Injury CT AND XR R ELBOW FX AND DISLOCATION DOI 08/20/2023 * Surgical (Urgent) - Closed Specialty Diagnoses / Procedures Referred By Contac t Referred To Contact Diagnoses Right elbow fx dislocation Doi 08/20/2023 (reduced) Topher Hargrove IV, [facility] [place] [address] Noreen Santos MD [facility] [place]OPAEDIC [place] [address] Referral ID Status Reason Start Date Expiration Date Visits Re quested Visits Authorized [id number] Closed 08/21/2023 08/20/2024 1 1 Encounter Details Date Type Department Care Team (Late st Contact Info) Description 08/23/2023 2:00 PM EDT Office [place] [address] Noreen Santos MD [facility] [place]THOPAEDIC [place] [address] Elbow injury, right, initial encounter Social History [...] on file documented as of this encounter Last Filed Vital Signs Vital Sign Reading Time Taken Comments Blood Pressure - - Pulse - - Temperature - - Respiratory Rate - - Oxygen Saturation - - Inhaled Oxygen Concentration - - Weight 70.3 kg (155 lb) 08/23/2023 1:36 PM EDT Height 182.9 cm (6') 08/23/2023 1:36 PM EDT Body Mass Index 21.02 08/23/2023 1:36 PM EDT documented in this encounter Progress Notes * Noreen Santos MD - 08/23/2023 2:00 PM EDT Images from the original note were not included. PATIENT NAME: Matt Zheng AGE: 28 y.o. MR#: [id number] DATE OF VISIT: 08/23/2023 HISTORY OF PRESENT ILLNESS: Mr. Zheng is a 28 y.o. male who comes into clinic today for evaluationof the right elbow. He sustained a fall from a ladder where he experienced an elbow fracture dislocation. He was seen at an OSH where his elbow was reduced and splinted. He presents today to discuss this injury. His pain is well controlled. No head strike or LOC. No pain in any other anatomic location. No numbness or paresthesias. Medications and Allergies were reviewed in eD-H PAST MEDICAL HX: History reviewed. No pertinent past medical history. PAST SURGICAL HX: Past Surgical History: Procedure Laterality Date PRO OPEN TX MONTEGGIA FRACTURE DISLOCATION ELBOW Right 08/27/2023 ORIF MONTEGGIA FX.ELBOW (WRVU 8.8) performed by Noreen Santos MD at [facility] OR FAMILY HX: Family History Problem Relation Age of Onset Diabetes Neg Hx SOCIAL HX: Social History Occupational History Not on file Tobacco Use Smoking status: Every Day Types: Cigarettes Smokeless tobacco: Never Substance and Sexual Activity Alcohol use: Yes Comment: Small amount Drug use: Yes Types: Marijuana Sexual activity: Not on file ROS: Constitutional: Denies fevers, chills Respiratory: Denies shortness of breath, cough Cardiac: Denies chest pain, palpitations GI: denies abdominal pain, nausea, vomiting Skin: Denies new rashes or lesions Neuro: no numbness, tingling, or weakness Musculoskeletal: as above in HPI 08/23/2023 General Health, Prior Treatments, PreExisting Condition, Health Habits, About You Weight (lbs) 157 Height (feet) 6 feet Height (Inches) 0 BMI 21.29 (Normal) Live Alone No Marital situation Single (never ) Schooling High school graduate or GED Combined Household Income $25,000 to less than $35,000 # People Supported 3 South African, , No, not South African// Race White Health Literacy Extremely Currently working Yes Current job situation Full-time No data to display No data to display PHYSICAL EXAM: Mr. Zheng is a 28 y.o. male General appearance: in no acute distress, alert, cooperative Psych: cooperative with exam, appropriate Head: normocephalic, atraumatic EENT: EOMI grossly intact Neck: supple, trachea midline Cardiac: regular rate and rhythm by peripheral pulse Lungs: non-labored respirations Musculoskeletal: Inspection: skin is clean and intact, with moderate swelling Neurovascular: UE- SGILT R/M/U/Ax nerve distributions; AIN/PIN/U nerves fire; 2+ radial pulse DIAGNOSTIC STUDIES: XR and CT were personally reviewed and demonstrate large anteromedial coranoid fracture. Elbow is concentrically reduced. ASSESSMENT: This is a 28 y.o. male with an elbow fracture dislocation and a large anteromedial coranoid fracture. We had a long evidence-based discussion about this injury as well as treatment options. We discussed both operative and nonperative treatment at length including risks and benefits. Based off this discussion he prefers operative treatment We discussed risks that include but are not limited to infection, bleeding, damage to surrounding tissue, need for further surgery, malunion, nonunion, hardware failure, symptomatic hardware, persistent pain, postraumatic arthritis, stiffness, anesthesia-related complications, blood clots. He demonstrated good understanding and does wish to proceed. Nikki Santos MD [place] Department of Orthopaedics [facility] documented in this encounter Plan of Treatment Not on file documented as of this encounter Visit Diagnoses Diagnosis Elbow injury, right, initial encounter documented in this encounter Care Teams Juice Mixer Relationship Specialty Start Date End Date Kaia Nolasco APRN [address] [place] [address] PCP - General Family Medicine 02/22/18 documented as of this encounter
--- OUTSIDE RECORDS SUMMARY | 2024-02-11 07:36 | XMS_ITS | Encounter Summary ---
[place] [address] Care Team Providers Care Archery Equipment Repairer Name Role Phone Kaia Nolasco APRN Primary Care Provider [phone] Encounter Details Date Type Department Care Team (Latest Contact Info) Description 08/23/2023 Travel Social History Tobacco Use Types Packs/Day Years [...] on filedocumented in this encounter Care Teams Archery Equipment Repairer Relationship Specialty Start Date End Date Kaia Nolasco APRN [address] [place] [address] PCP - General Family Medicine 02/22/18 documented as of this encounter
--- OUTSIDE RECORDS SUMMARY | 2024-02-11 07:36 | XMS_ITS | Encounter Summary ---
Author Organization [facility] [place] [address] Care Team Providers Care Field Training Manager Name Role Phone Kaia Nolasco APRN Primary Care Provider [phone] Reason for Visit * Auth/Cert (Routine) Specialty Diagnoses / Procedures Referred By Contac t Referred To Contact Diagnoses Elbow injury, right, initial encounter complex elbow fracture dislocation Procedures PRO OPEN TX MONTEGGIA FRACTURE DISLOCATION ELBOW ORIF MONTEGGIA FX.ELBOW (WRVU 8.8) MODIFIER VARIAX 2 LOCKING MINI FRAGMENT ADORE Noreen Santos MD [facility] [place] [address] [facility] Referral ID Status Reason Start Date Expiration Date Visits Re quested Visits Authorized [id number] 1 1 Encounter Details Date Type Department Care Team (Latest Contact Info) Description 08/27/2023 12:57 PM EDT - 08/27/2023 9:30 PM EDT Hospital Encounter [place] [address] Noreen Santos MD [facility] [place] [address] Elbow injury, right, initial encounter Discharge Disposition: [...] Mass Index 20.68 08/27/2023 1:33 PM EDT documented in this encounter Discharge Instructions * Discharge Instructions* Natalie Cordoba RN - 08/27/2023 8:16 PM EDT SAME DAY PROGRAM POST-OPERATIVE INSTRUCTIONS What to Expect After a Nerve Block Prevent pain as the nerve block wears off. The nerve block you had to prevent pain during a procedure, will wear off in 12- 48 hours. Once the block starts wearing off, it goes fast - often gone in 60 minutes. If you will need pain relief after the block wears off, your surgeon will prescribe pain medicine. IMPORTANT: Start taking pain medicine before the nerve block wears off. Eat something before taking the pain medicine to prevent upset stomach. If it's not mealtime, eating crackers or a light snack will help. Nerve blocks sometimes wear off during the night. Take pain medicine before going to sleep, so you don't wake up in pain. A nerve block may create strange feelings in the blocked body part. Nerves control movement, pain, and normal sensations. When they are blocked to prevent pain, you may have feelings in the blocked area of: Weakness Numbness Tingling Heaviness A feeling that your arm or leg has ???fallen asleep?? Just to repeat, the block can last 12-48 hours depending on the medicines used. Usually weakness wears off first, followed by a numb or tingly sensation. Pain can return unless you take pain medicines before the block wears off. If you had a shoulder block, you may notice these other signs: Mild shortness of breath A hoarse voice Blurry vision Eye pupils not equal in size Drooping of your face on the same side as the nerve block These are common side effects after a shoulder nerve block. They should go away within 12 hours. *IMPORTANT: If these signs do not go away in 24 hours, please call the Anesthesiology Department: [phone] Shortness of breath: If you have severe shortness of breath that seems to go on and on, please go to the nearest ER (emergency room). If a nerve block lasts longer than 48 hours, take action. If the nerve block does not wear off within 48 hours, please call the Anesthesiology Department: [phone] Protect the part of your body that is numb. Because a nerve block stops pain, pressure, or feeling in your blocked body part, you might be moreat risk for injury. For example, you could burn your arm or leg without knowing it right away. Use these tips to protect your limb while it's numb: While you are awake, try to change positions of your arm or leg often. This keeps you from putting too much pressure on a limb for a long time. While sleeping, use pillows around the limb to stop too much pressure on it for too long. If you have a cast or a tight dressing, check the color of your fingers or toes every few hours. Ifthey have a strange color, call your doctor. If you have a sling after an arm or hand block, wear it all the time until feeling returns to your arm or hand. The sling keeps you in the right position. If you do not have a sling, look at the position of the numb arm often, to make sure it's safe. Ask your family or support person to help you stay aware and use these tips. Questions? Please call the Anesthesiology Department with concerns or questions: [phone] After hours: Call the hospital welding pantograph machine operator and ask for the anesthesiologist (jose mitchell) deckhand sponge boat: [phone] Updated: 12/13/20 * Patient Instructions* Johnnie Vargas MD - 08/27/2023 7:40 PM EDT Orthopaedic Discharge Instructions Activity level: 1. Non-weight bearing on your Right upper extremity. 2. Remember to keep your Right upper extremity elevated as much as possible to decrease swelling and control pain. 3. You should wear the sling for comfort. Use pillows under the arm to assist with elevation. Anticoagulation: Aspirin - You are being discharged on enteric-coated Aspirin 81mg by mouth twice aday. Continue this for 30 days. After your dose on 09/26 stop the Aspirin, unless you are told otherwise by your Orthopedic surgeon. Take this medication with food or large amounts (240 mL) of water or milk to minimize GI irritation. Diet: You may return to your usual diet, but increase your fluids and fiber intake to keep you hydrated and your bowels soft. You should increase your intake of high protein foods and fluids to help heal your injury. Driving: None until you are cleared to do so by your Orthopedic surgeon. You should not drive whileyou are on narcotic pain meds as they can affect your judgement and reaction time. Call your surgeon with any questions/concerns. Medications: 1. The pain medication you are on can cause constipation so increase your intake of fluids and fiber while you are on them. The stool softener, Pericolace, that has been prescribed can also be taken to facilite a bowel movement. You can also take an bsdb-xnd-jodbjik medication, Miralax if needed tocombat constipation. 2. If you need a renewal on your narcotic pain medication, you need to give the Orthopedic clinic enough time to process your request. This can take up to three days, so plan accordingly. 3. Continue acetaminophen (Tylenol) 1,000mg every 8 hours around the clock - this can be effective in controlling pain along with your other medications. After that you can take Tylenol as needed perpackage insert. Do not take more than 3,000mg of acetaminophen in a 24 hour period. 4. You have been discharged on a short acting narcotic, tramadol. You will be on this medication for a limited period of time only. Taper off this medication as your pain improves. 5. For added pain control, NSAIDs (Ibuprofen, Motrin, or Aleve) may also be taken with dosages as directed on package inserts. Shower/Bath: You may shower BUT use a waterproof dressing (plastic bag taped at the top) to cover the incision/dressing. DO NOT submerge the wound. Remember you MUST to observe your weight bearing status and activity limitations when you shower so use a chair or bench for balance if you are unable to safely stand. A sponge bath may be easier. Wound Care: 1. Suture/staple removal 2 weeks post-op. 2. Leave the operative dressing on until follow-up. Call your doctor ([phone]) if you develop: Fever greater than 100.5 Severe nausea or vomiting Increasing pain that is not controlled by pain medications Increasing redness, swelling, or drainage from incisions Change in sensation FOLLOWUP APPOINTMENTS: 1. You will have followup appointments at [facility] as indicated in Future Appointment and Orders. Youwill have an xray prior to those appointments so please come to Radiology, desk 3T, 1 hour BEFORE your appointment for those x- rays on 09/13. 2. If you are being discharged over the weekend or at night and do not have a scheduled appointmentwith Orthopaedics, you should be notified about your appointment within the next 1-2 days. Please call if you do not hear about an appointment within that timeframe, as your follow-up is important to us. Future Appointments Date Time Provider Department Center 09/14/2023 1:30 PM [facility] DX ROOM 1 Xray [facility] Rad 09/14/2023 2:30 PM Noreen Santos MD [facility] ORTH 3C [facility] If you have Orthopaedic questions or concerns: Sunday through Sunday, 8 AM - 5 PM, please call Noreen Santos MD, MD's office at . If it is after 5 PM or on the weekend, please call and ask to speak with the Orthopedic resident on-call. documented in this encounter Medications at Time of Discharge [...] for Itching. documented as of this encounter H&P Notes * Johnnie Vargas MD - 08/27/2023 6:44 AM EDT 24-HOUR H&P UPDATE Matt Zheng was seen and evaluated. No interval events or changes in health status since preoperative H+P. Denies angina, dyspnea, fevers, chills, or malaise within the last 14 days. All questions were answered. Stable for surgery as scheduled. Alert and oriented RRR CTAB Matt Zheng is a 27 y.o. male pended for right elbow (coronoid) open reduction internal fixation. Johnnie Vargas MD Orthopaedic Surgery [facility] Associated attestation - Noreen Santos MD - 08/27/2023 6:29 PM EDT I have seen the patient and reviewed the attached history/physical and all imaging and I agree withthe details as written. The assessment and plan were formulated in discussion with me and I agree with them as documented. Nikki Santos MD Department of Orthopaedics 08/27/2023 documented in this encounter Miscellaneous Notes * Brief Op Note - Johnnie Vargas MD - 08/27/2023 7:47 PM EDT Brief Operative Note Patient Name: Matt Zheng DOB: [id number] MR#: [id number] Case Date: 08/27/2023 Surgeon: Surgeons and Role: * Noreen Santos MD - Primary * Johnnie Vargas MD - Resident - Assisting Preoperative diagnosis: Elbow dislocation with coronoid fracture Postoperative diagnosis: Elbow dislocation with coronoid fracture Procedure(s) (LRB): ORIF MONTEGGIA FX.ELBOW (WRVU 8.8) (Right) MODIFIER VARIAX 2 LOCKING MINI FRAGMENT ADORE (Right) Anesthesia: General . Complications: None apparent Estimated Blood Loss: 50 mL* No values recorded between 08/27/2023 4:49 PM and 08/27/2023 6:52 PM * Specimens removed during surgery: None Fluids: Intraprocedure Crystalloid Total Intake lactated ringers infusion 1000.00 mL ceFAZolin (Ancef) 2 g vial attach to sodium chloride 0.9% 100 mL Mini-Bag Plus 10.00 mL Total Intake 1010 mL Output Blood Loss 50 mL Total Output 50 mL Net Net Volume 960 mL PRBCs: none (See Anesthesia Record/Report for Other Blood Products) Urine Output: (no urine output recorded) Drains: None Disposition: awakened from anesthesia, extubated and taken to the recovery room in a stable condition, having suffered no apparent untoward event. Condition: doing well without problems (Please see the Surgical Encounter Summary for any Implant and Specimen details pertinent to this patient.) Surgical Infection Prevention Bundle Used? No * Op Note - Noreen Santos MD - 08/27/2023 4:49 PM EDT [facility] Operative Note Patient Name: Matt Zheng : [id number] MR#: [id number] Case Date: 08/27/2023 Surgeon: Surgeons and Role: * Noreen Santos MD - Primary * Johnnie Vargas MD - Resident - Assisting Preoperative diagnosis: Elbow dislocation with coronoid fracture Postoperative diagnosis: Elbow dislocation with coronoid fracture Procedure(s) (LRB): ORIF MONTEGGIA FX.ELBOW (WRVU 8.8) (Right) MODIFIER VARIAX 2 LOCKING MINI FRAGMENT ADORE (Right) Anesthesia: General Estimated Blood Loss: 50 mL Specimens removed during surgery: None Drains: None Surgical Closure: Primary Closure - skin incision is completely closed without any wires, desmond, drains or other devices Disposition: awakened from anesthesia, extubated and taken to the recovery room in a stable condition, having suffered no apparent untoward event. Condition: doing well without problems (Please see the Surgical Encounter Summary for any Implant and Specimen details pertinent to this patient.) HPI/Surgical Indications: This is a 27 y.o. male who fell off a 6 ft ladder sustaining an injury to the right elbow. Reviewing the radiographs, patient sustained an elbow dislocation with coronoid fracture. Discussed with thepatient that surgical fixation of the coronoid that would improve the stability of the elbow and reduce the risk for future instability events. Risks and benefits of surgery including bleeding, infection, damage to nerves and blood vessels, malunion, nonunion, hardware failure, need for revision surgery were all discussed with the patient. Patient would like to proceed with surgery. Procedure Description: The patient was identified in the preoperative holding area, where the surgical consent was reviewed, and the operative site was marked. The patient was then brought back to the operating room, where he was transferred to the table in the supine position, making sure that allbony prominences were well padded. A general anesthetic was administered. A tourniquet was placed high on the operative arm. That arm was then prepped and draped in the usual sterile fashion. A surgical timeout was held in accordance with [facility] protocol. The patient received 2 g of cefazolin antibiotic prior to incision. A curved 10 cm incision was made over the ulnar aspect of the right elbow just anterior to the cubital tunnel and ulnar nerve. The subcutaneous tissue was dissected with electrocautery. Pickups and tenotomy scissors were then used to perform sharp dissection down to the cubital tunnel where the ulnar nerve was identified. The ulnar nerve was extensively decompressed. The cubital tunnel was decompressed and the ulnar nerve was traced distally to the heads of the FCU. At this point the FCU was split to further expose the ulnar nerve. At this point, the coronoid fracture was encountered as a portion of the anterior elbow capsule had been traumatically ruptured. The elbow joint was thoroughly irrigated and hematoma was evacuated from the fracture site using a combination of curette and suction. A aaeue-qz-jtgbn clamp was then used to reduce the Cholinoid to anatomic position. This was then secured with a 1.6 mm K wire. A 2.0 mm cortical screw was then used to lag the coronoid fragment by technique. Following successful compression of the fragment, the 1.6 mm K wire was then removed and a second 2.0 mm compression screw was lag by technique. C-arm was then used to confirm appropriate alignment of the 2 lag screws, and it was confirmed that they were not in the elbow joint. Next, a T-shaped 2.0 mm mini frag Lebo plate was cut and contoured to the shape of the coronoid to prevent anterior translation of the coronoid fragment, and was subsequently fixed to the ulna with 2.0 cortical screws. Satisfied with the construct, final fluoroscopy shots were obtained demonstrating reduction of the coronoid fragment with satisfactory hardware alignment. The wound was then copiously irrigated. The fascia overlying the FCU heads was then loosely approximated without placing any pressureon the ulnar nerve. Subcutaneous tissue overlying the cubital tunnel was then approximated to prevent subluxation of the ulnar nerve, however there is no pressure on the ulnar nerve at the site. The skin was then closed in layered fashion using 0 Vicryl, 2-0 Vicryl, and 3-0 nylon in vertical mattress fashion. The incision was dressed with Xeroform, gauze, ABD pads, and sterile Webril. The patientwas then placed in a long-arm plaster splint. Patient was transferred from the OR table back to [facility] and was awakened from anesthesia without any complications. Patient proceeded tothe postanesthesia care unit in stable condition. Patient was assessed in PACU and found to have sensation and motor function in median, ulnar and radial distribution, prior to a rescued pain block per anesthesia. Postoperative plan: Pain control: Tylenol, ibuprofen, tramadol. ( This the patient is discharging home today and has plans to attend inpatient opioid rehab) DVT prophylaxis aspirin 81 mg twice daily Implant Name Type Inv. Item Serial No. Customer Engineer Lot No. LRB No. Used Action SCREW 2.0X30MM KARISSA NLCK FT TI T6 VARIAX ([id number]) (AutoReq) - [id number] IMPLANTS SCREW 2.0X30MM KARISSA NLCK FT TI T6 VARIAX ([id number]) (AutoReq) [employer] [facility] - ADORE Right 1 Implanted SCREW 2.0X32MM KARISSA NLCK FT TI T6 VARIAX ([id number]) (AutoReq) - [id number] IMPLANTS SCREW 2.0X32MM KARISSA NLCK FT TI T6 VARIAX ([id number]) (AutoReq) [employer] [facility] - ADORE Right 1 Implanted SCREW 2.0X28MM KARISSA NLCK FT TI T6 VARIAX ([id number]) (AutoReq) - [id number] IMPLANTS SCREW 2.0X28MM KARISSA NLCK FT TI T6 VARIAX ([id number]) (AutoReq) [employer] [facility] - ADORE Right 1 Implanted K WIRE FIX 1.4H388IM TROCAR POINT SGL END SS VARIAX ([id number]) - [id number] IMPLANTS K WIRE FIX 1.8W119BD TROCAR POINT SGL END SS VARIAX ([id number]) [employer] [facility] Right 3 Implanted and Explanted PLATE 2.0X62MM T SHAPE 5X10 HOLE NARROW LCK VARIAX ([id number]) (AutoReq) - [id number] IMPLANTS PLATE 2.0X62MM T SHAPE 5X10 HOLE NARROW LCK VARIAX ([id number]) (AutoReq) [employer] - ADORE Right1 Implanted SCREW 2.0X26MM KARISSA NLCK FT TI T6 VARIAX ([id number]) (AutoReq) - [id number] IMPLANTS SCREW 2.0X26MM KARISSA NLCK FT TI T6 VARIAX ([id number]) (AutoReq) [employer] [facility] - ADORE Right 1 Implanted SCREW 2.0X34MM KARISSA NLCK FT TI T6 VARIAX ([id number]) (AutoReq) - [id number] IMPLANTS SCREW 2.0X34MM KARISSA NLCK FT TI T6 VARIAX ([id number]) (AutoReq) [employer] [facility] - ADORE Right 2 Implanted SCREW 2.0X22MM KARISSA NLCK FT TI T6 VARIAX ([id number]) (AutoReq) - [id number] IMPLANTS SCREW 2.0X22MM KARISSA NLCK FT TI T6 VARIAX ([id number]) (AutoReq) [employer] ADORE Right 1 Implanted and Explanted SCREW 2.0X40MM KARISSA NLCK FT TI T6 VARIAX ([id number]) (AutoReq) - [id number] IMPLANTS SCREW 2.0X40MM KARISSA NLCK FT TI T6 VARIAX ([id number]) (AutoReq) [employer]ORE Right 1 Implanted and Explanted Surgical Infection Prevention Bundle Used? No Attestation: Case Date: 08/30/23 I was present and I participated during the entire procedure (does not need to include opening and closing). Noreen Santos MD 08/30/23 documented in this encounter Plan of Treatment Not on file documented as of this encounter Procedures Procedure Name Priority Date/Time Associated Diagnosis Comments XR ELBOW 3 VIEWS RIGHT (GENERIC) Routine 08/27/2023 8:20 PM EDT XR FLUORO NO RAD <1HR - OR USE Routine 08/27/2023 6:11 PM EDT MODIFIER VARIAX 2 LOCKING MINI FRAGMENT ADORE Yes 08/27/2023 4:25 PM EDT Elbow injury, right, initial encounter Open Tx Monteggia Fracture Dislocation Elbow (07839) Yes 08/27/2023 4:25 PM EDT Elbow injury, right, initial encounter ORIF MONTEGGIA FX.ELBOW Routine 08/27/2023 1:17 PM EDT Elbow injury, right, initial encounter documented in this encounter Results * XR Elbow 3 Views Right (GENERIC) (08/27/2023 8:20 PM EDT) WORKSTATION ID [id number] RAD Anatomical Region Laterality Modality Elbow Right Digital Radiogra phy Impressions 08/28/2023 12:38 PM EDT Status post ORIF of the coronoid process fracture. ??No immediate hardware complication. Thank you for letting us participate in the care of this patient. ??If you are a health care provider and have any questions regarding this report, please contact the number below. ??For patients who have questions please contact the health medicare nurse that requested your imaging first. ? Narrative 08/28/2023 12:38 PM EDT EXAMINATION: XR ELBOW 3 VIEWS RIGHT (GENERIC) CLINICAL HISTORY: s/p orif coronoid right (as entered by ordering provider in the order requisition) TECHNIQUE: AP, oblique, lateral views of the right elbow. COMPARISON: Intraoperative fluoroscopic images from earlier today. ??Right forearm radiographs August 23, 2023. ??CT of the right elbow August 23, 2023. FINDINGS: The patient is imaged in a plaster splint. ??There are postoperative changes status post ORIF of the coronoid process fracture. ??Hardware is intact and similar position. ??Anatomic alignment of the elbow joint. Multiple surgical clips project along the soft tissues medial to the elbow joint. Procedure Note Nay Aquino MD - 08/28/2023 EXAMINATION: XR ELBOW 3 VIEWS RIGHT (GENERIC) CLINICAL HISTORY: s/p orif coronoid right (as entered by ordering providerin the order requisition) TECHNIQUE: AP, oblique, lateral views of the right elbow. COMPARISON: Intraoperative fluoroscopic images from earlier today. Right forearm radiographs August 23, 2023. CT of the right elbow August 23, 2023. FINDINGS: The patient is imaged in a plaster splint. There are postoperativechanges status post ORIF of the coronoid process fracture. Hardware is intactand similar position. Anatomic alignment of the elbow joint. Multiple surgical clips project along the soft tissues medial to theelbow joint. IMPRESSION Status post ORIF of the coronoid process fracture. No immediatehardware complication. Thank you for letting us participate in the care of this patient. If youare a health care provider and have any questions regarding this report,please contact the number below. For patients who have questions please contactthe health medicare nurse that requested your imaging first. Noreen SZYMANSKI DX ORDERABLES * XR Fluoro No Rad <1Hr - OR Use (08/27/2023 6:11 PM EDT) Narrative Dicom, Auditing User - 08/27/2023 6:11 PM EDT This exam is auto-finalizing. No interpretation was done. Noreen SZYMANSKI FLUORO ORDERABLE S documented in this encounter Visit Diagnoses Diagnosis Elbow injury, right, initial encounter Olecranon fx, radial head fracture, coronoid fracture s/p radial head replacement, coronoid ORIF, and olecranon ORIF (Danielle 08/27/23) documented in this encounter Administered Medications Inactive Administered Medications - up to 3 most recent administrations Medication Order MAR Action Action Date Dose Rate Site HYDROmorphone (Dilaudid) (2 mg/mL) multi-dose injection solution 0.4 mg 0.4 mg, Intravenous, EVERY 10 MIN PRN, Starting on Sun08/27/23 at 1823, Until Sun08/27/23 at 2128, Pain, For Moderate to Severe Pain (6-10 out of 10), Hold for respiratory rate less than 10 per minute. Maximum dose 3 mg over one hour including administrations in the OR. If multiple pain medications are ordered, start with HYDROmorphone or morphine and use fentaNYL for breakthrough pain., PACU Recovery, Routine Given 08/27/2023 7:32 PM EDT 0.4 mg Given 08/27/2023 7:22 PM EDT 0.4 mg lactated ringers infusion 1,000 mL, at 100 mL/hr, Intravenous, CONTINUOUS, Starting on Sun08/27/23 at 1400, Until Sun08/27/23 at 2128, Day of Surgery (Day of Procedure) New Bag 08/27/2023 4:20 PM EDT New Bag 08/27/2023 2:00 PM EDT 1,000 mLs 100 mL/hr traMADoL (Ultram) tablet 50 mg 50 mg, Oral, ONCE, 1 dose, On Sun08/27/23 at 2130, Routine Given 08/27/2023 9:14 PM EDT 50 mg documented in this encounter Active and Recently Administered Medications Times are shown in EDT. Scheduled Medication Order 08/25/2023 08/26/2023 08/27/2023 ceFAZolin (Ancef) 2 g vial attach to sodium chloride 0.9% 100 mL Mini-Bag Plus (COMPLETED) 2 g, Intravenous, ONCE, 1 dose, On Sun08/27/23 at 1615, Administer over 30 Minutes, Indication for (Active or Suspected): Prophylaxis 1646 (New Bag - Prov ider: Venice Miller CRNA) traMADoL (Ultram) tablet 50 mg (COMPLETED) 50 mg, Oral, ONCE, 1 dose, On Sun08/27/23 at 2130, Routine 2114 (Given - Provid er: Natalie Abreu RN) Continuous Medication Order 08/25/2023 08/26/2023 08/27/2023 lactated ringers infusion (CANCELED) 1,000 mL, at 100 mL/hr, Intravenous, CONTINUOUS, Starting on Sun08/27/23 at 1400, Until Sun08/27/23 at 2129, Day of Surgery (Day of Procedure) 1400 (New Bag - Prov ider: Alba Munoz RN)1619 (Paused - Provider: Venice Miller CRNA - Comment: Switch to gravity)1620 (New Bag - Provider: Venice Miller CRNA)1700 (Anesthesia Volume Adjustment - Provider: Venice Miller CRNA)1800 (Anesthesia Volume Adjustment - Provider: Venice Miller CRNA)1828 (Anesthesia Volume Adjustment - Provider: Venice Miller CRNA) PRN Medication Order 08/25/2023 08/26/2023 08/27/2023 HYDROmorphone (Dilaudid) (2 mg/mL) multi-dose injection solution 0.4 mg (CANCELED)(Linked Group 1) 0.4 mg, Intravenous, EVERY 10 MIN PRN, Starting on Sun08/27/23 at 1823, Until Sun08/27/23 at 212, Pain, For Moderate to Severe Pain (6-10 out of 10), Hold for respiratory rate less than 10 per minute. Maximum dose 3 mg over one hour including administrations in the OR. If multiple pain medications are ordered, start with HYDROmorphone or morphine and use fentaNYL for breakthrough pain., PACU Recovery, Routine 1921 (Given - Provid er: Leta Henriquez RN)1931 (Given - Provider: Leta Henriquez RN) tobramycin (Nebcin) injection (CANCELED) PRN, Starting on Sun08/27/23 at 1704, Until Sun08/27/23 at 2330, Intra-Operative (Intra-Procedure), Routine 1703 (Given - Provid er: Noreen Santos MD) vancomycin (Vancocin) injection (CANCELED) PRN, Starting on Sun08/27/23 at 1704, Until Sun08/27/23 at 2330, Intra-Operative (Intra-Procedure), Routine 1703 (Given - Provid er: Noreen Santos MD) Linked Groups Order Group 1: HYDROmorphone (Dilaudid) (2 mg/mL) multi-dose injection solution 0.2 mg (CANCELED) 0.2 mg, Intravenous, EVERY 10 MIN PRN, Starting on Sun08/27/23 at 1823, Until Sun08/27/23 at 2128, Pain, For Mild to Moderate Pain (1-5 out of 10), Hold for respiratory rate less than 10 per minute. Maximum dose 3 mg over one hour including administrations in the OR. If multiple pain medications are ordered, start with HYDROmorphone or morphine and use fentaNYL for breakthrough pain., PACU Recovery, Routine Or HYDROmorphone (Dilaudid) (2 mg/mL) multi-dose injection solution 0.4 mg (CANCELED)Jump to med 0.4 mg, Intravenous, EVERY 10 MIN PRN, Starting on Sun08/27/23 at 1823, Until Sun08/27/23 at 2129, Pain, For Moderate to Severe Pain (6-10 out of 10), Hold for respiratory rate less than 10 per minute. Maximum dose 3 mg over one hour including administrations in the OR. If multiple pain medications are ordered, start with HYDROmorphone or morphine and use fentaNYL for breakthrough pain., PACU Recovery, Routine documented in this encounter Care Teams Field Training Manager Relationship Specialty Start Date End Date BjKaia marin SELENE [address] [place] [address] PCP - General Family Medicine 02/22/18 documented as of this encounter
--- OUTSIDE RECORDS SUMMARY | 2024-02-11 07:36 | XMS_ITS | Encounter Summary ---
Author Organization [facility] Address [address] [place] [address] Care Team Providers Care Recruitment Intern Name Role Phone Unavailable Primary Care Provider Unavailabl e Encounter Details Date Type Department Care Team (Late st Contact Info) Description 04/05/2020 Lab Requisition [facility] Pathology & Laboratory Medicine - [facility] [address] [place] [address] Outr Resulting Lab, Provider Social History Tobacco [...] Diagnosis Comments HCV RNA DETECT QUANT Routine 04/05/2020 9:15 EST documented in this encounter Results * HCV RNA DETECT QUANT (04/05/2020 9:15 EST) HCV RNA Qualitative Undetected Undetected 04/07/2020 13:58 EST [facility] Blood VENOUS BLOOD / Unknown 04/05/2020 9:15 EST 04/05/2020 21:27 EST Narrative [facility] - 04/07/2020 13:58 EST The quantification range of this assay is 15 IU/mL to 100,000,000 IU/mL. ??Testing was performed on the LILLIAN Ampliprep/LILLIAN TaqMan HCV v2.0 ([employer] us Provider Outr Resulting Lab CHEMISTRY & BLOOD GA S ORDERABLES Final Result [facility] [address] [place] [address] documented in this encounter Visit Diagnoses Not on filedocumented in this encounter
--- OUTSIDE RECORDS SUMMARY | 2024-02-11 07:36 | XMS_ITS | Encounter Summary ---
Author Organization Formerly [facility] [place] [address] Care Team Providers Care Hotel Or Motel Room Service Supervisor Name Role Phone Kaia Nolasco APRN Primary Care Provider [phone] Encounter Details Date Type Department Care Team (Late st Contact Info) Description 08/31/2023 Telephone [place] [phone] Nilda Kulkarni [facility] [place] [address] Social History Tobacco Use Types Packs/Day Years [...] encounter Miscellaneous Notes * Telephone Encounter - Nilda Kulkarni DO - 08/31/2023 3:13 PM EDT REGIONAL NERVE BLOCK FOLLOW-UP I attempted to contact the patient via telephone regarding resolution of nerve block. I was unable to reach the patient. If there are any questions or concerns regarding the nerve block, do not hesitate to contact the regional anesthesia team at [phone]. Nilda Kulkarni DO 08/31/2023 documented in this encounter Plan of Treatment Not on file documented as of this encounter Visit Diagnoses Not on filedocumented in this encounter Care Teams Hotel Or Motel Room Service Supervisor Relationship Specialty Start Date End Date Kaia Nolasco APRN [address] [place] [address] [address] [place] [address] PCP - General Family Medicine 02/22/18 documented as of this encounter
--- OUTSIDE RECORDS SUMMARY | 2024-02-11 07:36 | XMS_ITS | Encounter Summary ---
Author Organization [facility] Address [address] [place] [address] Care Team Providers Care Crane Man Name Role Phone Unavailable Primary Care Provider Unavailabl e Encounter Details Date Type Department Care Team (Late st Contact Info) Description 12/03/2019 Lab Requisition [facility] Pathology & Laboratory Medicine - [facility] [address], [place] [id number] Outr Resulting Lab, Provider Social History Tobacco [...] Associated Diagnosis Comments HCV RNA DETECT QUANT After X-Ray 12/02/2019 8:45 EDT HEPATITIS B SURFACE ANTIGEN After X-Ray 12/02/2019 8:45 EDT documented in this encounter Results * (ABNORMAL) HCV RNA DETECT QUANT (12/02/2019 8:45 EDT) HCV RNA Qualitative Detected( A) Undetected 01/23/2020 9:43 EST [facility] HCV RNA Quantitative 335,078(H ) Undetected IU/mL 01/23/2020 9:43 EST [facility] Blood VENOUS BLOOD / Unknown 12/02/2019 8:45 EDT 01/20/2020 10:53 EST Narrative [facility] - 01/23/2020 9:43 EST The quantification range of this assay is 15 IU/mL to 100,000,000 IU/mL. ??Testing was performed on the LILLIAN Ampliprep/LILLIAN TaqMan HCV v2.0 ([employer] us Provider Outr Resulting Lab CHEMISTRY & BLOOD GA S ORDERABLES Final Result Performing Organization Address [facility] Co de Phone Number [facility] [address] [place] [address] * HEPATITIS B SURFACE ANTIGEN (12/02/2019 8:45 EDT) Hep B Surface Ag Negative Negative 01/21/2020 13:17 EST [facility] Blood VENOUS BLOOD / Unknown 12/02/2019 8:45 EDT 01/20/2020 10:53 EST us Provider Outr Resulting Lab CHEMISTRY & BLOOD GA S ORDERABLES Final Result Performing Organization Address [facility] Co de Phone Number [facility] [address] [place] [address] documented in this encounter Visit Diagnoses Not on filedocumented in this encounter
--- OUTSIDE RECORDS SUMMARY | 2024-02-11 07:36 | XMS_ITS | Encounter Summary ---
[place] [address] Care Team Providers Care Communications Lead Name Role Phone Kaia Nolasco APRN Primary Care Provider [phone] Reason for Visit * Auth/Cert (Routine) Specialty Diagnoses / Procedures Referred By Contac t Referred To Contact Diagnoses Elbow injury, right, initial encounter complex elbow fracture dislocation Procedures PRO OPEN TX MONTEGGIA FRACTURE DISLOCATION ELBOW ORIF MONTEGGIA FX.ELBOW (WRVU 8.8) MODIFIER VARIAX 2 LOCKING MINI FRAGMENT ADORENoreen Jama MD [facility] [place] [address] [facility] Referral ID Status Reason Start Date Expiration Date Visits Re quested Visits Authorized [id number] 1 1 Encounter Details Date Type Department Care Team (Late st Contact Info) Description 08/27/2023 4:20 PM EDT Anesthesia Event [place] [phone] Everett Farah MD [facility] [place] [address] Karel Crenshaw MD [facility] [place] [address] Anesthesia Record Procedure Summary Procedure Name Responsible Anesthesiologist Anesthesia Start Time Anesthesia Stop Time ORIF MONTEGGIA FX.ELBOW (WRVU 8.8) (Right: Arm) Everett Farah MD 08/27/23 1620 08/27/23 1904 Events Date Time Event Comment 08/27/2023 1502 1620 Start 1625 AN Verify 1625 An Start Data 1631 An Induction 1634 An Intubation 1636 Quick Note Technical diffi culties with blood pressure cuff/cord after induction; switched out cord. New BP recorded. 1640 Anesthesia Ready 1647 Procedure Start 1648 Skin Incision 1715 An Tourn Inflated Tq up at 2 50mmhg 1725 Quick Note Warm blankets a pplied to upper body (lower kaylin hugger in place as well) to improve temperature. 182 An Tourn Deflated 185 Extubation/LMA Out 185 an stop data 190 Recovery or ICU Handoff Jazzmine ent care was transferred to the destination unit staff after review of the patient's medical history, current anesthetic/surgical status and plan, according to the Provider Handoff Checklist. 1903 Stop Meds Name Total midazolam 2 mg lidocaine IV 100 mg PHENYLephrine 240 mcg ondansetron 4 mg dexAMETHasone 8 mg glycopyrrolate 0.3 mg propofol 290 mg dexmedeTOMIDine 4 mcg/mL 40 mcg ketamine 10 mg/mL 50 mg propofol INF 297.56 mg ceFAZolin (Ancef) 2 g vial a ttach to sodium chloride 0.9% 100 mL Mini-Bag Plus 2 g acetaminophen IV 1,000 mg BUpivacaine 0.5% 30 mL lactated ringers infusion 1,000 mL * Agents Name O2 * Blood No blood administrations on file. Lines, Drains, and Airways Type Details Placement Removal Incision 08/27/23; 1649; Righ t, anterior, upper; arm 08/27/23 1649 by Desiree Stone RN PIV 08/27/23; 1347; 20 g auge; cephalic vein (lateral side of arm), left; LYNDA Reese; distraction, tolerated well, appears comfortable; 08/27/23; 212708/27/23 1347 by Alba Munoz RN 08/27/232127 by Natalie Cordoba RN ETT Removal Date: ; Removal Time: 185208/27/23 163 by Venice Miller CRNA 08/27/231852 by Venice Miller CRNA Supraglottic Mask Ventilation: No t Attempted (0); LMA Type: iGel; LMA Size: 4; Inserted by: MIREYA Miller; Removal Date: 08/27/23; Removal Time: 185208/27/231638 by Venice Miller CRNA 08/27/231852 by Venice Miller CRNA documented in this encounter Social History Tobacco Use Types Packs/Day [...] on file documented as of this encounter OR Notes * Anesthesia Procedure Notes - Efraín Joaquin MD - 08/27/2023 7:51 PM EDT Associated Order(s): Anesthesia Block Anesthesia Block Date/Time: 08/27/2023 7:45 PM Start Time: 08/27/2023 7:45 PM End Time: 08/27/2023 7:50 PM Patient Location: PACU Indication: Post-op Pain Control Post-op pain management at the request of surgeon. Block Type: Supraclavicular nerve block Laterality: Right Position: Sitting Prep: Chlorhexidine, patient draped and mask, cap, sterile gloves, hand hygeine Skin Anesthetic: Skin Anesthetic: Lidocaine 1% dose: 3 Block Technique: SonoPlex 22 5 cm Ultrasound Guided: YES and in-plane Ultrasound Image Saved Ultrasound guidance was used to identify the targeted neuronal structure. Ultrasound was also used to identify needle position and to identify tissue (bone, muscle, and blood vessels) to prevent inadvertent intraneural or intravascular needle placement and injection. The spread of local anesthetic was confirmed with live ultrasound imaging. Single-Shot: Single-shot Local Anesthetic Volume(s) Injected for Nerve Block: BUpivacaine 0.5% - Perineural 30 mL - 08/27/2023 7:45:00 PM Notes: Patient tolerated procedure well and remained in communication throughout. Target structures, needle, and local anesthetic spread were visualized under ultrasound for the duration of the procedure. No blood aspirated, no pain on injection, no paresthesias. No needle to nerve or vessel contact was observed on ultrasound. Quick relief following injection Performed by: Resident/OIL FIELD LABORER: Efraín Joaquin MD Attending Physician: Everett Rodríguez MD Authorized by: Everett Rodríguez MD * Anesthesia Postprocedure Evaluation - Everett Farah MD - 08/27/2023 7:11 PM EDT Department of Anesthesiology Post-procedure Note Patient: Matt Zheng Procedure Summary Date: 08/27/23 Room / Location: [facility] OR [address] [place] [address] MAIN OR Anesthesia Start: 1620 Anesthesia Stop: 1903 Procedures: ORIF MONTEGGIA FX.ELBOW (WRVU 8.8) (Right: Arm) MODIFIER VARIAX 2 LOCKING MINI FRAGMENT ADORE (Right) Diagnosis: Elbow injury, right, initial encounter (complex elbow fracture dislocation) Surgeons: Noreen Santos MD Responsible Provider: Everett Farah MD Anesthesia Type: general ASA Status: 2 All Anesthesia Providers: Anesthesiologist: Everett Farah MD OIL FIELD LABORER: Venice Miller CRNA Vitals Value Taken Time BP 152/100 08/27/232044 Temp 38.3 ??C (100.9 ??F) 08/27/232044 Pulse 97 08/27/232044 Resp 12 08/27/232044 SpO2 98 % 08/27/232044 Pain Level 5 08/27/232113 Patient Location: PACU/[facility] Level of Consciousness: Conscious but Sleepy Pain Management: Satisfactory Analgesia PONV: None Cardiovascular Status: At Baseline and Hemodynamically Stable Respiratory Status: Supplemental O2 (NC or FM) Postoperative Fluid Status: Intravascular EUvolemia Possible Anesthetic Complications: NONE apparent at time of evaluation Final Primary Anesthesia Type: General (The anesthetic type performed was the same as planned.) Comments: * Anesthesia Preprocedure Evaluation - Everett Farah MD - 08/27/2023 3:00 PM EDT Images from the original note were not included. Pre-Anesthesia Evaluation for: Matt Zheng a 27 y.o. male. Procedure(s): ORIF MONTEGGIA FX.ELBOW (WRVU 8.8) MODIFIER VARIAX 2 LOCKING MINI FRAGMENT ADORE There are no problems to display for this patient. History reviewed. No pertinent past medical history. History reviewed. No pertinent surgical history. Social History Tobacco Use ??? Smoking status: Every Day Types: Cigarettes ??? Smokeless tobacco: Never Substance Use Topics ??? Alcohol use: Yes Comment: Small amount Social History Substance and Sexual Activity Drug Use Yes ??? Types: Marijuana No Known Allergies Medications: MAR and/or home medications have been reviewed. Physical Exam: Preprocedure Vitals Current as of 08/27/23 1500 BP: 109/68 Pulse: 73 Resp: 18 SpO2: 98 Temp: 36.5 ??C (97.7 ??F) Height: 182.9 cm (6') (08/27/23) Weight: 69.2 kg (152 lb 8 oz) (08/27/23) BMI: 20.68 IBW: 77.6 kg (171 lb 1.9 oz) Last edited 08/27/23 1333 by BF Airway Assessment: Mallampati: I TM distance: >3 FB Neck ROM: full Cardiovascular Assessment: system normal Pulmonary Assessment: pulmonary exam normal Dental Assessment: Misc Assessment: Patient is wearing No contact(s). IV access: Peripheral line Other exam findings: Very poor dentition Denies GERD Denies CP/Pressure w 4 METs Last Filed Perioperative Cognitive Screening None Anesthesia Plan: ASA 2 general, with a(n) intravenous induction 27yoM smoker (1ppd cigarettes x 12yrs) w R elbow fx presenting for stress exam under anesthesia, ORIF. Plan GA, rescue block after demonstration of neurovascular integrity. Risks/benefits discussed with patient including, but not limited to, dental/airway/lip injury, vascular injury, nerve injury, t hrombosis, limb ischemia, eye injury, blindness, adverse drug reactions, awareness, stroke, PA, , among others. All questions answered to patient's satisfaction. Region - Other Informed Consent: Anesthetic plan and risks discussed with patient. Use of blood products discussed with patient who consented to blood products. Plan discussed with OIL FIELD LABORER. Anesthesia Screening documented in this encounter Plan of Treatment Not on file documented as of this encounter Procedures Procedure Name Priority Date/Time Associated Diagnosis Comments ANESTHESIA BLOCK Routine 08/27/2023 7:45 PM EDT documented in this encounter Results * Anesthesia Block (08/27/2023 7:45 PM EDT) Narrative Everett Rodríguez MD - 08/27/2023 7:45 PM EDT Efraín Joaquin MD ? 08/27/2023 ??7:53 PM Anesthesia Block Date/Time: 08/27/2023 7:45 PM Start Time: ??08/27/2023 7:45 PM End Time: ??08/27/2023 7:50 PM Patient Location: ??PACU Indication: ??Post-op Pain Control Post-op pain management at the request of surgeon. ?? Block Type: ??Supraclavicular nerve block Laterality: ??Right Position: ??Sitting Prep: ??Chlorhexidine, patient draped and mask, cap, sterile gloves, hand hygeine Skin Anesthetic: ??Skin Anesthetic: ??Lidocaine 1% ??dose: ??3 Block Technique: ?? SonoPlex ?? 22 ?? 5 cm ??Ultrasound Guided: ??YES and in-plane ??Ultrasound Image Saved ?Ultrasound guidance was used to identify the targeted neuronal structure. Ultrasound was also used to identify needle position and to identify tissue (bone, muscle, and blood vessels) to prevent inadvertent intraneural or intravascular needle placement and injection. The spread of local anesthetic was confirmed with live ultrasound imaging. ?Single-Shot: ??Single-shot Local Anesthetic Volume(s) Injected for Nerve Block: ?? BUpivacaine 0.5% - Perineural 30 mL - 08/27/2023 7:45:00 PM Notes: ?? Patient tolerated procedure well and remained in communication throughout. Target structures, needle, and local anesthetic spread were visualized under ultrasound for the duration of the procedure. No blood aspirated, no pain on injection, no paresthesias. No needle to nerve or vessel contact was observed on ultrasound. Quick relief following injection Performed by: ?? Resident/OIL FIELD LABORER: ? Efraín Joaquin MD ?? Attending Physician: ? Everett Rodríguez MD Authorized by: Everett Rodríguez MD ?? Everett Rodríguez MD [facility] documented in this encounter Visit Diagnoses Not on filedocumented in this encounter Administered Medications Inactive Administered Medications - up to 3 most recent administrations Medication Order MAR Action Action Date Dose Rate Site acetaminophen (Ofirmev) (1,000 mg/100 mL) infusion Intravenous, Administer over 15 Minutes, PRN, Starting on Sun08/27/23 at 1801, Until Sun08/27/23 at 1904, Anesthesia Intra-op, Routine Given 08/27/2023 6:01 PM EDT 1,000 mg BUPivacaine (pf) (Marcaine) (5 mg/mL) 0.5% injection Perineural, Starting on Sun08/27/23 at 1945, Until Sun08/27/23 at 1953, Anesthesia Intra-op, Routine Given 08/27/2023 7:45 PM EDT 30 mLs ceFAZolin (Ancef) 2 g vial attach to sodium chloride 0.9% 100 mL Mini-Bag Plus 2 g, Intravenous, ONCE, 1 dose, On Sun08/27/23 at 1615, Administer over 30 Minutes, Indication for (Active or Suspected): Prophylaxis New Bag 08/27/2023 4:46 PM EDT 2 g dexAMETHasone (Decadron) injection Intravenous, PRN, Starting on Sun08/27/23 at 1646, Until Sun08/27/23 at 1904, Anesthesia Intra-op, Routine Given 08/27/2023 4:46 PM EDT 8 mg dexmedeTOMIDine (Precedex) (4 mcg/mL) bolus injection (Anesthsia) Intravenous, PRN, Starting on Sun08/27/23 at 1631, Until Sun08/27/23 at 1904, Anesthesia Intra-op, Routine Given 08/27/2023 6:10 PM EDT 4 mcg Given 08/27/2023 6:00 PM EDT 4 mcg Given 08/27/2023 5:50 PM EDT 4 mcg glycopyrrolate (Robinul) (0.2 mg/mL) multi-dose injection Intravenous, PRN, Starting on Sun08/27/23 at 1630, Until Sun08/27/23 at 1904, Anesthesia Intra-op, Routine Given 08/27/2023 6:07 PM EDT 0.1 mg Given 08/27/2023 4:30 PM EDT 0.2 mg ketamine (Ketalar) (10 mg/mL) IV bolus injection (Anesthesia) Intravenous, PRN, Starting on Sun08/27/23 at 1631, Until Sun08/27/23 at 1904, Anesthesia Intra-op Given 08/27/2023 5:23 PM EDT 10 mg Given 08/27/2023 5:07 PM EDT 10 mg Given 08/27/2023 4:49 PM EDT 5 mg lactated ringers infusion 1,000 mL, at 100 mL/hr, Intravenous, CONTINUOUS, Starting on Sun08/27/23 at 1400, Until Sun08/27/23 at 2129, Day of Surgery (Day of Procedure) New Bag 08/27/2023 4:20 PM EDT New Bag 08/27/2023 2:00 PM EDT 1,000 mLs 100 mL/hr lidocaine (pf) (Xylocaine) (20 mg/mL) 2% injection syringe Intravenous, PRN, Starting on Sun08/27/23 at 1631, Until Sun08/27/23 at 1904, Anesthesia Intra-op, Routine Given 08/27/2023 4:31 PM EDT 100 mg midazolam (pf) (Versed) (1 mg/mL) multi-dose injection Intravenous, PRN, Starting on Sun08/27/23 at 1626, Until Sun08/27/23 at 1904, Anesthesia Intra-op, Routine Given 08/27/2023 4:26 PM EDT 2 mg ondansetron (pf) (Zofran) (2 mg/mL) injection Intravenous, PRN, Starting on Sun08/27/23 at 1805, Until Sun08/27/23 at 1904, Anesthesia Intra-op, Routine Given 08/27/2023 6:05 PM EDT 4 mg PHENYLephrine in NS (PF) (ARLENE-SYNEPHRINE) 0.8 mg/10 mL (80 mcg/mL) multi-dose injection Syringe Intravenous, PRN, Starting on Sun08/27/23 at 1639, Until Sun08/27/23 at 1904, Anesthesia Intra-op, Routine Given 08/27/2023 4:41 PM EDT 160 mcg Given 08/27/2023 4:39 PM EDT 80 mcg propofoL (Diprivan) (10 mg/mL) infusion Intravenous, CONTINUOUS PRN, Starting on Sun08/27/23 at 1642, Until Sun08/27/23 at 1904, Anesthesia Intra-op, Routine New Bag 08/27/2023 4:42 PM EDT 50 mcg/kg/min 20.76 mL/hr propofoL (Diprivan) 10 mg/mL bolus injection (Anesthesia) Intravenous, PRN, Starting on Sun08/27/23 at 1631, Until Sun08/27/23 at 1904, Anesthesia Intra-op Given 08/27/2023 6:35 PM EDT 30 mg Given 08/27/2023 6:24 PM EDT 20 mg Given 08/27/2023 6:16 PM EDT 40 mg documented in this encounter Care Teams Communications Lead Relationship Specialty Start Date End Date Kaia Nolasco, SELENE [address] [place] [address] PCP - General Family Medicine 02/22/18 documented as of this encounter
--- OUTSIDE RECORDS SUMMARY | 2024-02-11 07:36 | XMS_ITS | Encounter Summary ---
Author Organization [facility] Address [facility] [place] [address] Care Team Providers Care Research Clerk Name Role Phone Kaia Nolasco APRN Primary Care Provider [phone] Reason for Visit * Reason Onset Date Comments Appointment 09/17/2023 Encounter Details Date Type Department Care Team (Late st Contact Info) Description 09/17/2023 Telephone [place] [phone] Noreen Santos MD [facility] [place] [address] Appointment Social History Tobacco Use Types Packs/Day [...] * Telephone Encounter - Natalie Rizzo - 09/19/2023 3:24 PM EDT PATIENT SCHEDULED FOR 09/21/23 * Telephone Encounter - Earlene Wellington - 09/17/2023 10:56 AM EDT MISSED HCK LM #1 TO RESCHDULED HCK WITH XR, CAST? PLEASE RESCHEDULE WITH MARYA CARLSON ALLISON WITH XR XR RIGHT elbow dislocation, coronoid ORIF DOS 08/27/23 (Gitajn) documented in this encounter Plan of Treatment Not on file documented as of this encounter Visit Diagnoses Not on filedocumented in this encounter Care Teams Research Clerk Relationship Specialty Start Date End Date Kaia Nolasco APRN [address] [place] [address] PCP - General Family Medicine 02/22/18 documented as of this encounter
--- OUTSIDE RECORDS SUMMARY | 2024-02-11 07:36 | XMS_ITS | Encounter Summary ---
Author Organization [facility] [place] [address] Care Team Providers Care Erector Operator Name Role Phone Kaia Nolasco APRN Primary Care Provider [phone] Reason for Visit * Auth/Cert (Routine) Specialty Diagnoses / Procedures Referred By Contac t Referred To Contact Diagnoses Elbow injury, right, initial encounter complex elbow fracture dislocation Procedures PRO OPEN TX MONTEGGIA FRACTURE DISLOCATION ELBOW ORIF MONTEGGIA FX.ELBOW (WRVU 8.8) MODIFIER VARIAX 2 LOCKING MINI FRAGMENT VIRY Noreen Santos MD [facility] [place] [address] [facility] Referral ID Status Reason Start Date Expiration Date Visits Re quested Visits Authorized [id number] 1 1 Encounter Details Date Type Department Care Team (Late st Contact Info) Description 08/27/2023 2:05 PM EDT - 08/27/2023 4:50 PM EDT [place] [id number] Noreen Santos MD [facility] [place] [address] ORIF MONTEGGIA FX.ELBOW (WRVU 8.8) Social History Tobacco Use Types Packs/Day Years [...] Sign Reading Time Taken Comments Blood Pressure 109/68 08/27/2023 1:33 PM EDT Pulse 73 08/27/2023 1:33 PM EDT Temperature 36.5 ??C (97.7 ??F) 08/27/2023 1:33 PM ED T Respiratory Rate 18 08/27/2023 1:33 PM EDT Oxygen Saturation 98% 08/27/2023 1:33 PM EDT Inhaled Oxygen Concentration - - [...] 24 hours, please call the Anesthesiology Department: [phone] Shortness of breath: If you have severe shortness of breath that seems to go on and on, please go to the nearest ER (emergency room). If a nerve block lasts longer than 48 hours, take action. If the nerve block does not wear off within 48 hours, please call the Anesthesiology Department: [phone] Protect the part of your body that [...] the Anesthesiology Department with concerns or questions: [phone] After hours: Call the hospital dredge pump operator and ask for the anesthesiologist (jose mitchell) isolation washer: [phone] Updated: 12/13/20 * Patient Instructions* Johnnie Vargas [...] bowel movement. You can also take an mfyg-yio-jxrljtv medication, Miralax if needed tocombat constipation. 2. [...] dressing on until follow-up. Call your doctor ([phone]) if you develop: Fever greater than 100.5 Severe nausea or vomiting Increasing pain that is not controlled by pain medications Increasing redness, swelling, or drainage from incisions Change in sensation FOLLOWUP APPOINTMENTS: 1. [place] [facility] [place] as indicated in Future Appointment and Orders. [...] Time Provider Department Center 09/14/2023 1:30 PM [facility] DX ROOM 1 Xray [facility] Rad 09/14/2023 2:30 PM Noreen Santos MD [facility] [place] [facility] [place] [place] If you have Orthopaedic questions or concerns: [...] internal fixation. Johnnie Vargas MD Orthopaedic Surgery [facility] Associated attestation - Noreen Santos MD [...] Brief Operative Note Patient Name: Matt Zheng : [id number] MR#: [id number] Case Date: 08/27/2023 Surgeon: Surgeons and Role: * Noreen Santos MD - Primary * Johnnie Vargas MD - Resident - Assisting Preoperative diagnosis: Elbow dislocation with coronoid fracture Postoperative diagnosis: Elbow dislocation with coronoid fracture Procedure(s) (LRB): ORIF MONTEGGIA FX.ELBOW (WRVU 8.8) (Right) MODIFIER VARIAX 2 LOCKING MINI FRAGMENT VIRY (Right) Anesthesia: General . Complications: None apparent [...] Bundle Used? No * Op Note - Noeren Santos MD - 08/27/2023 4:49 PM EDT [facility] [place] Patient Name: Matt Zheng : [id number] MR#: [id number] Case Date: 08/27/2023 Surgeon: Surgeons and Role: * Noreen Santos MD - Primary * Johnnie Vargas MD - Resident - Assisting Preoperative diagnosis: Elbow dislocation with coronoid fracture Postoperative diagnosis: Elbow dislocation with coronoid fracture Procedure(s) (LRB): ORIF MONTEGGIA FX.ELBOW (WRVU 8.8) (Right) MODIFIER VARIAX 2 LOCKING MINI FRAGMENT VIRY (Right) Anesthesia: General Estimated Blood Loss: 50 [...] surgical timeout was held in accordance with [facility] [place]. The patient received 2 g of [...] a combination of curette and suction. A fhvwv-ht-dzmkk clamp was then used to reduce the [...] Next, a T-shaped 2.0 mm mini frag Viry plate was cut and contoured to the [...] transferred from the OR table back to [facility] and was awakened from [...] Implant Name Type Inv. Item Serial No. Saw Feeder Lot No. LRB No. Used Action SCREW 2.0X30MM KARISSA NLCK FT TI T6 VARIAX ([id number]) (AutoReq) - [id number] IMPLANTS SCREW 2.0X30MM KARISSA NLCK FT TI T6 VARIAX ([id number]) (AutoReq) [facility] - VIRY Right 1 Implanted SCREW 2.0X32MM KARISSA NLCK FT TI T6 VARIAX ([id number]) (AutoReq) - [id number] IMPLANTS SCREW 2.0X32MM KARISSA NLCK FT TI T6 VARIAX ([id number]) (AutoReq) [facility] - VIRY Right 1 Implanted SCREW 2.0X28MM KARISSA NLCK FT TI T6 VARIAX ([id number]) (AutoReq) - [id number] IMPLANTS SCREW 2.0X28MM KARISSA NLCK FT TI T6 VARIAX ([id number]) (AutoReq) [facility] - VIRY Right 1 Implanted K WIRE FIX [id number] TROCAR POINT SGL END SS VARIAX ([id number]) - [id number] IMPLANTS K WIRE FIX [id number] TROCAR POINT SGL END SS VARIAX ([id number]) [facility] - VIRY Right 3 Implanted and Explanted PLATE 2.0X62MM T SHAPE 5X10 HOLE NARROW LCK VARIAX ([id number]) (AutoReq) - [id number] IMPLANTS PLATE 2.0X62MM T SHAPE 5X10 HOLE NARROW LCK VARIAX ([id number]) (AutoReq) [facility] - VIRY Right1 Implanted SCREW 2.0X26MM KARISSA NLCK FT TI T6 VARIAX ([id number]) (AutoReq) - [id number] IMPLANTS SCREW 2.0X26MM KARISSA NLCK FT TI T6 VARIAX ([id number]) (AutoReq) [facility] - VIRY Right 1 Implanted SCREW 2.0X34MM KARISSA NLCK FT TI T6 VARIAX ([id number]) (AutoReq) - [id number] IMPLANTS SCREW 2.0X34MM KARISSA NLCK FT TI T6 VARIAX ([id number]) (AutoReq) [facility] - VIRY Right 2 Implanted SCREW 2.0X22MM KARISSA NLCK FT TI T6 VARIAX ([id number]) (AutoReq) - [id number] IMPLANTS SCREW 2.0X22MM KARISSA NLCK FT TI T6 VARIAX ([id number]) (AutoReq) [facility] - VIRY Right 1 Implanted and Explanted SCREW 2.0X40MM KARISSA NLCK FT TI T6 VARIAX ([id number]) (AutoReq) - [id number] IMPLANTS SCREW 2.0X40MM KARISSA NLCK FT TI T6 VARIAX ([id number]) (AutoReq) [employer] - VIRY Right 1 Implanted and Explanted Surgical Infection [...] EDT MODIFIER VARIAX 2 LOCKING MINI FRAGMENT VIRY Yes 08/27/2023 4:25 PM EDT Elbow injury, right, initial encounter Open Tx Monteggia Fracture Dislocation Elbow (22799) Yes 08/27/2023 4:25 PM EDT Elbow injury, right, initial encounter ORIF MONTEGGIA FX.ELBOW Routine 08/27/2023 1:17 PM EDT Elbow injury, right, initial encounter documented in this encounter Results * XR Elbow 3 Views Right (GENERIC) (08/27/2023 8:20 PM EDT) WORKSTATION ID [id number] RAD Anatomical Region Laterality Modality Elbow Right [...] who have questions please contact the health hospice care sales consultant that requested your imaging first. ? Narrative [...] patients who have questions please contactthe health hospice care sales consultant that requested your imaging first. Noreen Santos MD IMG DX ORDERABLES * XR Fluoro No Rad <1Hr - OR Use (08/27/2023 6:11 PM EDT) Narrative Dicom, Auditing User - 08/27/2023 6:11 PM EDT This exam is auto-finalizing. No interpretation was done. Noreen SZYMANSKI FLUORO ORDERABLE S documented in this encounter Visit Diagnoses Diagnosis Elbow injury, right, initial encounter Elbow injury, right, initial encounter documented in this encounter Administered Medications Inactive [...] 2:00 PM EDT 1,000 mLs 100 mL/hr tobramycin (Nebcin) injection PRN, Starting on Sun08/27/23 at 1704, Until Sun08/27/23 at 2330, Intra-Operative (Intra-Procedure), Routine Given 08/27/2023 5:04 PM EDT 1.2 g 19- Surgical Site traMADoL (Ultram) tablet 50 mg 50 mg, Oral, ONCE, 1 dose, On Sun08/27/23 at 2130, Routine Given 08/27/2023 9:14 PM EDT 50 mg vancomycin (Vancocin) injection PRN, Starting on Sun08/27/23 at 1704, Until Sun08/27/23 at 2330, Intra-Operative (Intra-Procedure), Routine Given 08/27/2023 5:04 PM EDT 1 g 19- Surgical Site documented in this encounter Active and Recently [...] 1 dose, On Sun08/27/23 at 2130, Routine 211 (Given - Provid er: Natalie Abreu RN) [...] Until Sun08/27/23 at 2330, Intra-Operative (Intra-Procedure), Routine 170 (Given - Provid er: Noreen Santos MD) Linked Groups Order Group 1: HYDROmorphone (Dilaudid) (2 mg/mL) multi-dose injection solution 0.2 mg (CANCELED) 0.2 mg, Intravenous, EVERY 10 MIN PRN, Starting on Sun08/27/23 at 1823, Until Sun08/27/23 at 2129, Pain, For Mild to Moderate Pain (1-5 [...] Routine documented in this encounter Care Teams Erector Operator Relationship Specialty Start Date End Date Kaia Nolasco APRN [address] [place] [address] PCP - General Family Medicine 02/22/18 documented as of this encounter
--- NOTE | 2024-02-11 07:40 | DI.CT_ITS ---
Exam(s) CT CHEST PE CTA EXAM: CT CHEST PE CTA CLINICAL HISTORY: r/o Pe. TECHNIQUE: Imaging Protocol: Axial CT angiography was performed with multi-slice acquisition and mu lti-planar and/or 3D reconstructions. Lung Computer Aided Detection (CAD) was utilized. CONTRAST MATERIAL: Intravenous: Omnipaque 350 contrast volume:100 mL COMPARISON: CR ABDOMEN 2 VIEW FLAT, UPRIGHT from 10/11/2012 FINDINGS: Tracheobronchial tree: Patent where visualized. No bronchiectasis. Pulmonary parenchyma: There are multiple pulmonary opacities within the lungs. They show central cav itation. The largest intraparenchymal lesion is seen in the right upper lobe and measures 4.6 x 6.0 cm. (Series 13, image 48). There is a large in capsulated air-fluid level along the right chest wal l measuring 19 cm AP x 7.5 cm transverse by 15 cm cranio caudally. The findings suspicious for an em pyema. There is resultant loss of volume in the right hemithorax. There is a large left pleural eff usion with subjacent atelectasis. There areas of volume loss seen in the right lung laterally. Inci dental note is made of an azygos lobe which is a normal variant. There is an area of decreased atten uation in the periphery of the right lower lobe (series 13, image 84) this may represent an area of i nfarct. Pulmonary Arteries: Due to the motion artifact, there is some limitation of the evaluation of the per ipheral pulmonary arteries. No central pulmonary embolism is present. Mediastinum and Meera: There is a 1.6 x 2.1 cm area of decreased attenuation in the anterior mediastin um. Differential considerations include adenopathy or abscess. There are mildly enlarged lymph node s seen in the meera and mediastinum. The esophagus is unremarkable. Visualized thyroid gland: Unremarkable. Pleura: No left pneumothorax. Please see the above discussion under pulmonary parenchyma. Heart: The heart is not dilated. No coronary artery calcifications are seen. No pericardial effusion. Aorta: Thoracic aorta non-dilated. No evidence of dissection. Upper abdomen: There are areas of decreased attenuation seen within the spleen. This may be due to early normal enhancement appearance. Possibility of an infarct should also be considered. The splee n appears mildly enlarged. Soft tissues: Unremarkable. Bones: Within normal limits for the patient's age.No aggressive osseous lesions are visualized. IMPRESSION: 1. No evidence of pulmonary embolism, thoracic aortic dissection or aneurysm. 2. Multifocal pulmonary nodules with cavitation suspicious for multifocal abscess and infection. 3. Area of decreased attenuation in the periphery of the right lower lobe (series 13, image 84). Thi s may represent an area of infarction. 4. 19 x 7.5 x 15 cm air-fluid collection in the right hemithorax suspicious for loculated pleural eff usion versus empyema. 5. Large left pleural effusion. 6. Mediastinal and hilar adenopathy which is likely reactive. 7. Area of decreased attenuation seen within the spleen. This may be due to the arterial heterogeneo us normal enhancement. Possibility of a splenic infarct should be considered. Please correlate clin ically. The spleen appears mildly enlarged. 8. Findings were discussed with Dr. Wei at 8:30 a.m. on 02/11/2024. RADIATION DOSE DELIVERED: 68.47mGy.cm Total DLP DATA REPOSITORY: All CT scans at this facility are submitted to the National Radiology Data Registry (NRDR) Dose Index Registry (DIR) with the [employer] ([employer]). RADIATION OPTIMIZATION: All CT scans at this facility use at least one of these dose optimization te chniques: automated exposure control; mA and/or kV adjustment per patient size (includes targeted exa ms where dose is matched to clinical indication); or iterative reconstruction.
[2024-02-11] MEDS: Normal Saline - Diluent 50 ML VIAL IJ (08:02)
[2024-02-11] MEDS: Omnipaque 350 MG/ML 100 ML BTL IJ (08:03)
[2024-02-11 08:04] LABS: Abs Immature Grans 0.37 10^3/uL (0.0-0.06); HCT 27.5 % (40.0-50.0); HGB 9.9 g/dL (13.5-17.5); MCH 28.5 pg (27.0-33.0); MCV 79 fL (80-95); MPV 11.5 fL (8.0-11.0); Platelet Count 166 10^3/uL (130-400); RBC 3.47 10^6/uL (4.36-5.78); RDW 13.6 % (11.8-14.1); RDW-SD 38.5 fL; WBC 21.07 10^3/uL (4.4-10.8)
[2024-02-11 08:06] LABS: ESR 102 mm/hr (0-15)
--- NOTE | 2024-02-11 08:15 | DI.RAD_ITS ---
Exam(s) XR ELBOW RT COMPLETE EXAM: XR ELBOW RT COMPLETE CLINICAL HISTORY: right elbow. TECHNIQUE: 2D digital imaging was performed of the left elbow. Three images were obtained. AP, lat eral and oblique views were obtained. COMPARISON: CR XR ELBOW RT COMPLETE from 08/20/2023 FINDINGS: BONES: No acute fracture is present. No bony destructive lesion is seen. A sideplate and screws seen in the proximal ulna. JOINTS: The elbow is normally aligned. No joint effusion is seen. SOFT TISSUE: Surgical clips are seen in the soft tissues medially. No soft tissue gas is appreciated . IMPRESSION: No radiographic findings to suggest osteomyelitis. No soft tissue gas. DATA REPOSITORY: RADIATION DOSE DELIVERED:
[2024-02-11 08:18] LABS: PTT Activated 28.5 sec (23.6-32.8); Prothrombin Time 13.2 sec (9.1-11.1)
[2024-02-11 08:20] LABS: Absolute Lymphocyte Count 1.47 10^3/uL (1.2-3.4); Absolute Monocyte Count 0.42 10^3/uL (0.1-0.8); Absolute Neutrophil Count 19.17 10^3/uL (1.2-6.7); Atypical Lymphocytes % 2 %; Bands % 5 %; Diff Comment Manual Differential; RBC Morphology Normal
[2024-02-11 08:22] LABS: INR 1.3 (0.9-1.1)
--- NOTE | 2024-02-11 08:26 | W.ED.GENAD ---
Discharge Plan Disposition Patient Disposition: Transfer-Acute Inpatient Care Specific Acute Inpt Facility: [facility] Condition: Serious Discharge Details Clinical Impression: Severe sepsis, Multiple lung abscesses, Bacteremia, Acute hyponatremia Primary Care Provider: ION SOOD ED Provider: Titus Wei Home Meds and New Rx's Prescriptions: No Action naloxone [Narcan] 4 mg/actuation spray,non-aerosol 4 mg NS DIRECTED Qty: 2 0RF Rx Instructions: One spray (4mg) intranasally into one nostril. Use a new nasal spray for subsequent dose in alternate nostril if needed. May repeat once after initial dose in 2-3 minutes. methadone 10 mg/mL concentrate 135 mg PO DAILY Patient Comments: dose 70 per pt at [facility] Discharge Data Discharge Date/Time-TO BE ENTERED AT DEPARTURE: 02/11/24 10:01 HPI General Date/Time Provider Initiated Documentation: 02/11/24 07:38. HPI Narrative: This is a 28-year-old male with a past medical history of IV drug use previous right elbow fracture with hardware that was put in place a few months ago, which did subsequently get infected per patient, who presents today with shortness of breath for last 3 weeks. Patient is here with mother, he states that he has had mild to moderate difficulty breathing it has been worsening over the last 3 weeks, he has had intermittent fever chills, developed a rash over the last few days. He has a history of a DVT in the past secondary to IV drug use, he was on anticoagulates for a time, but this was stopped after his DVT resolved. He denies any hemoptysis or diarrhea. He denies any headache whatsoever. Of historical context, when he did have his surgery on his right elbow, he did allegedly get an infection at that area. He states he was at [facility] during that time. Currently he denies any new pain or swelling in his right elbow where his previous surgery was. He denies any other complaints at this time. Related Data Home Medications ?Medication ?Instructions ?Recorded ?Confirmed naloxone 4 mg/actuation nasal 4 mg NS DIRECTED #2 sprays 02/13/19 02/11/24 spray (Narcan) methadone 10 mg/mL oral concentrate 135 mg PO DAILY 01/30/23 02/11/24 Previous Rx's ?Medication ?Instructions ?Recorded naloxone 4 mg/actuation nasal 4 mg NS DIRECTED #2 sprays 02/13/19 spray (Narcan) Allergies Allergy/AdvReac Type Severity Reaction Status Date / Time No Known Allergies Allergy Verified 02/11/24 07:32 General Stated Complaint: RespSymp MARTÍN: 2 Exam Narrative Exam Narrative: 1.Const: Well-nourished, Well-developed, appearing stated age 2.Eyes: PERRL, no conjunctival injection, and symmetrical lids. 3.ENT: Atraumatic external nose and ears. Moist MM. Neck: Symmetric, trachea midline, No thyromegaly. 4.CVS: +S1/S2, Peripheral pulses 2+ and equal in all extremities. Brisk capillary refill in all extremities. 5.RESP: Tachypneic with scattered crackles throughout. No wheezes. 6.GI: Soft, Nontender/Nondistended, No hepatosplenomegaly. No guarding or rebound. 7.MSK: Normocephalic/Atraumatic, Extremities w/o deformity or ttp. Old healing scars in the anterior aspect of the right elbow, mild old violaceous coloring, no active erythema or warmth. No fluctuance. No cyanosis or clubbing, Normal movement of all extremities. No calf tenderness. Minimal trace pitting edema of the lower extremities bilaterally. 8.Skin: Warm, Dry. Petechial like rash over the feet shins and scattered on the arms. 9.Neuro: architect in training II-XII grossly intact. Sensation grossly intact, no focal neurologic deficits. 10.Psych: (AAO) x3. Appropriate mood and affect Course Vital Signs Vital signs: Vital Signs Temperature 37.5 C 02/11/24 07:33 Pulse 145 H 02/11/24 07:33 Respiratory Rate 45 H 02/11/24 07:33 Blood Pressure 113/65 02/11/24 07:33 Pulse Oximetry 91 L 02/11/24 07:33 Temperature 37.6 C H 02/11/24 08:04 Temperature Source Oral 02/11/24 08:04 Pulse 150 H 02/11/24 08:04 Respiratory Rate 46 H 02/11/24 08:04 Blood Pressure 113/65 02/11/24 07:40 Blood Pressure Position Sitting 02/11/24 07:33 Pulse Oximetry 98 02/11/24 08:04 Oxygen Delivery Method Room Air 02/11/24 08:04 Oxygen Flow Rate 0 02/11/24 07:40 Pain Level 8 02/11/24 08:04 Lab/Test Results Lab/Test Results: 02/11/24 07:50 Blood Blood Culture - Pending 02/11/24 07:48 Blood Blood Culture - Pending Laboratory Tests Range/Units 02/11/24 07:50 WBC (4.4-10.8) 10^3/uL 21.07 H RBC (4.36-5.78) 10^6/uL 3.47 L Hgb (13.5-17.5) g/dL 9.9 L Hct (40.0-50.0) % 27.5 L MCV (80-95) fL 79 L MCH (27.0-33.0) pg 28.5 MCHC (32.0-36.0) % 36.0 RDW (11.8-14.1) % 13.6 Plt Count (130-400) 10^3/uL 166 MPV (8.0-11.0) fL 11.5 H Immature Gran % See Differential Neutrophils % % 86.0 Band Neutrophils % % 5 Lymphocytes % % 5.0 Atypical Lymphs % % 2 Monocytes % % 2.0 Eosinophils % % 0.0 Basophils % % 0.0 Nucleated RBC % (0.0-0.3) % 0.0 Absolute Neutrophils (1.2-6.7) 10^3/uL 19.17 H Absolute Lymphocytes (1.2-3.4) 10^3/uL 1.47 Absolute Monocytes (0.1-0.8) 10^3/uL 0.42 Absolute Eosinophils (0.0-0.7) 10^3/uL 0.00 Absolute Basophils (0.0-0.2) 10^3/uL 0.00 RBC Morphology Normal ESR (0-15) mm/hr 102 H PT (9.1-11.1) sec 13.2 H INR (0.9-1.1) 1.3 H APTT (23.6-32.8) sec 28.5 C-Reactive Protein Cancelled Medical Decision Making This is a 28-year-old male with a past medical history of IV drug use previous right elbow fracture with hardware that was put in place a few months ago, which did subsequently get infected per patient, who presents today with shortness of breath for last 3 weeks. Patient is here with mother, he states that he has had mild to moderate difficulty breathing it has been worsening over the last 3 weeks, he has had intermittent fever chills, developed a rash over the last few days. He has a history of a DVT in the past secondary to IV drug use, he was on anticoagulates for a time, but this was stopped after his DVT resolved. He denies any hemoptysis or diarrhea. He denies any headache whatsoever. Of historical context, when he did have his surgery on his right elbow, he did allegedly get an infection at that area. He states he was at [facility] during that time. Currently he denies any new pain or swelling in his right elbow where his previous surgery was. He denies any other complaints at this time. Physical exam demonstrates notably ill-appearing male, heart rate in the 150s, tachypneic, no hypotension or shock at this time. Oxygen saturations are in the low 90s. He has concerning petechial like rash noted over his extremities. No headache neck pain or meningeal signs to suggest meningitis, however the rash does have an appearance concerning for a meningeococcemia like rash. However this may be secondary to bacteremia from a different source like his hardware in his right elbow. Differential is high for pulmonary embolism, but with his other symptomatology I have a high concern for an infectious etiology. He has no dysuria to suggest UTI. He states that he has not used in the last few months. He denies any new back pain to suggest spinal abscess. We will start broad-spectrum antibiotics with vancomycin, Zosyn and doxycycline (instead of azithromycin because of his methadone use and QT risk component). Differential is concerning for PE, we will get CTA. Will start a 500 cc fluid bolus, will get an x-ray of the elbow to evaluate for infection, will monitor closely and reassess. 9:22 AM Laboratory workup shows white count of 21, bandemia, and left shift. Lactate is elevated at 1.6 INR is 1.3, platelets are normal, ESR and CRP is high. Procalcitonin is high. Troponin is mildly high at 183. Still pending urine drug screen, still pending COVID flu and RSV. CT scan shows multiple pulmonary abscesses, 1 of which is quite large on the right with a notable effusion. No evidence of tension pneumothorax. There is concern for potential mild lung infarct on the right. Additionally the patient's sodium is low at 122. He is already receiving 500 cc fluid bolus, he has no neurologic deficits, no seizure. I do not feel that hypertonic bolus would be indicated in this setting, we will reassess where his sodium level shifts to after the 500 cc bolus is complete. Broad-spectrum antibiotics have been started. X-ray negative for acute process for the elbow. Due to his notable hemodynamic instability, significant pulmonary findings and evidence of bacteremia, I do feel that transfer to [facility] is indicated. Did speak with Dr. Hall, and she agrees with the assessment and plan. Patient will be transferred to [facility] for further definitive management. With no evidence of clot pulmonary embolism no indication for tPA at this time for thrombolysis currently. Patient will be admitted under Dr. Hicks's team. Patient's blood pressure remained stable with the administration of fluids and antibiotics. No evidence of respiratory failure at this point. No indication for intubation. Of note bedside echo was performed, right ventricle does appear mildly dilated. Difficult to visualize any vegetation in the ventricles at his current heart rate. I have extensively reviewed the treatment plan with the patient. I have addressed all patient concerns at this time. I have also discussed the plan with the admitting physician and they agree with the current assessment and plan and have agreed to assume responsibility for the patient. All parties demonstrate verbal understanding and agreement with our assessment and plan at this time. The documentation in this chart was dictated using [employer] dictation software. Please excuse any dictation errors. At time of transfer the patient was reassessed and continued to demonstrate No signs of acute respiratory distress requiring intubation, hemodynamic instability requiring pressor support, or rapidly declining mental status. FINDINGS: Tracheobronchial tree: Patent where visualized. No bronchiectasis. Pulmonary parenchyma: There are multiple pulmonary opacities within the lungs. They show central cavitation. The largest intraparenchymal lesion is seen in the right upper lobe and measures 4.6 x 6.0 cm. (Series 13, image 48). There is a large in capsulated air-fluid level along the right chest wall measuring 19 cm AP x 7.5 cm transverse by 15 cm cranio caudally. The findings suspicious for an empyema. There is resultant loss of volume in the right hemithorax. There is a large left pleural effusion with subjacent atelectasis. There areas of volume loss seen in the right lung laterally. Incidental note is made of an azygos lobe which is a normal variant. There is an area of decreased attenuation in the periphery of the right lower lobe (series 13, image 84) this may represent an area of infarct. Pulmonary Arteries: Due to the motion artifact, there is some limitation of the evaluation of the peripheral pulmonary arteries. No central pulmonary embolism is present. Mediastinum and Meera: There is a 1.6 x 2.1 cm area of decreased attenuation in the anterior mediastinum. Differential considerations include adenopathy or abscess. There are mildly enlarged lymph nodes seen in the meera and mediastinum. The esophagus is unremarkable. Visualized thyroid gland: Unremarkable. Pleura: No left pneumothorax. Please see the above discussion under pulmonary parenchyma. Heart: The heart is not dilated. No coronary artery calcifications are seen. No pericardial effusion. Aorta: Thoracic aorta non-dilated. No evidence of dissection. Upper abdomen: There are areas of decreased attenuation seen within the spleen. This may be due to early normal enhancement appearance. Possibility of an infarct should also be considered. The spleen appears mildly enlarged. Soft tissues: Unremarkable. Bones: Within normal limits for the patient's age.No aggressive osseous lesions are visualized. IMPRESSION: 1. No evidence of pulmonary embolism, thoracic aortic dissection or aneurysm. 2. Multifocal pulmonary nodules with cavitation suspicious for multifocal abscess and infection. 3. Area of decreased attenuation in the periphery of the right lower lobe (series 13, image 84). This may represent an area of infarction. 4. 19 x 7.5 x 15 cm air-fluid collection in the right hemithorax suspicious for loculated pleural effusion versus empyema. 5. Large left pleural effusion. 6. Mediastinal and hilar adenopathy which is likely reactive. 7. Area of decreased attenuation seen within the spleen. This may be due to the arterial heterogeneous normal enhancement. Possibility of a splenic infarct should be considered. Please correlate clinically. The spleen appears mildly enlarged. 8. Findings were discussed with Dr. Wei at 8:30 a.m. on 02/11/2024. FINDINGS: BONES: No acute fracture is present. No bony destructive lesion is seen. A sideplate and screws seen in the proximal ulna. JOINTS: The elbow is normally aligned. No joint effusion is seen. SOFT TISSUE: Surgical clips are seen in the soft tissues medially. No soft tissue gas is appreciated. IMPRESSION: No radiographic findings to suggest osteomyelitis. No soft tissue gas. Quality:SDOH Health Related Social Needs: No Data to Display Critical Care Time Critical Care Time Critical Care Time: Yes Total Critical Care Time: 100 Attestation: Upon my evaluation, this patient had a high probability of imminent or life-threatening deterioration, which required my direct attention, intervention, and personal management. I have personally provided 100 minutes of critical care time exclusive of time spent on separately billable procedures. Time includes review of laboratory data, radiology results, discussion with consultants, and monitoring for potential decompensation. Interventions were performed as documented. PFSH All Active Problems Acute hyponatremia (Acute) Bacteremia (Acute) Multiple lung abscesses (Acute) Severe sepsis (Acute) Seizure (Acute) Restless legs (Acute) Adjustment disorder with anxiety (Acute) Opioid dependence (Acute) Recurrent major depression (Acute) Disorder of hematopoietic structure (Acute) Heroin abuse (Chronic) As above. Reflecting on relapse he identifies the need to not be isolated and not let himself get bored. That is when he is tempted to use. He plans to move in to his own apartment Smoker (Acute 08/02/17) Medical History Depression with anxiety (05/07/15) Taking Wellbutrin 300mg QD. Significant help with depression, moderate help with anxiety. Jabieries SI. Has graduated from intense 6 week outpatient program. Continues to see drug and alcohol counselor x1 each week. 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 Admits to 1 relapse during his 6 week program. Congratulated in completing the program. Encouraged to continue with therapy and be proactive in his continued recovery. F/U 2 weeks. Hepatitis C virus infection (~02/2018) ADHD (attention deficit hyperactivity disorder) (09/21/15) Surgical History H/O elbow surgery Family History Mother Depression Grandfather Depression Heart disease Grandfather No problems noted. Grandmother Hyperlipidemia Grandmother Personal history of malignant neoplasm PANCREATIC Social History Smoking/Tobacco Use Status: Current every day Tobacco Type: cigarettes Smoking risk assessment performed?: Yes Alcohol Intake: current Alcohol Intake frequency: a few times a month Drug use: Daily Substance use type: marijuana and other Details: 2 months since last IV drug use. Still uses marijuana daily. 70mg daily methadone at [facility] Caregiver/Support person: Yes (states mom (John) his strongest support person) Household members: family Housing: apartment Current gender identity: male What type of physical activity do you participate in: none Seatbelt use: always Do you feel safe at home: Yes Do you feel safe in your relationship?: Yes POCUS Exam (ED) Limited Cardiac Exam DATE OF EXAM: 02/11/24 TIME OF EXAM: 09:30 PROVIDER THAT PERFORMED THE STUDY: Titus Wei IS THIS A REPEAT EXAM DURING THIS ENCOUNTER: no REASON FOR EXAM: Chest pain VISUALIZED STRUCTURES: Left atrium, Left ventricle, Right ventricle and Interventricular septum VIEW OBTAINED: Parasternal long-axis and Parasternal short-axis PERTINENT FINDINGS/IMPRESSION: RV dilation Exam complete
[2024-02-11 08:30] LABS: Bilirubin Negative (Negative); Blood Small (Negative); Clarity Sl Cloudy (Clear); Glucose Negative (Negative); Ketones Negative (Negative); Leukocyte Esterase Negative (Negative); Nitrite Negative (Negative); pH 5.5 (5-8)
[2024-02-11 08:32] LABS: Procalcitonin 9.05 ng/mL
[2024-02-11 08:39] LABS: ALT 24 U/L (16-63); AST 50 U/L (15-37); Albumin 1.5 g/dL (3.4-5.0); Alkaline Phosphatase 90 U/L (46-116); Anion Gap 9.3 mmol/L (3-11); BUN 44 mg/dL (7-18); Bilirubin, Total 1.88 mg/dL (0.2-1.0); C-Reactive Protein 20.68 mg/dL (<or=0.5); CO2 23.7 mmol/L (21.0-32.0); CREATININE 1.5 mg/dL (0.70-1.30); Calcium 7.9 mg/dL (8.5-10.1); Chloride 89 mmol/L (98-107); Estimated GFR 63.83 (mL/min/1.73m2); Glucose 95 mg/dL (74-106); NT-proBNP 1296 pg/mL (<300); Total Protein 6.8 g/dL (6.4-8.2)
[2024-02-11 08:41] LABS: Lactate 1.6 mmol/L (0.6-1.4)
[2024-02-11 08:44] LABS: WBC 0-2 HPF (0-5)
[2024-02-11 08:45] LABS: Bacteria Few HPF (Negative); C & S Indicated? No; Casts 0-2 Coarse Granular LPF (Negative); Crystals Negative HPF (Negative); Epithelial Cells Rare HPF (Negative); Mucus Trace (Negative)
[2024-02-11 08:52] LABS: Sodium 122 mmol/L (136-145); Troponin I 183 ng/L (<or=76)
[2024-02-11] MEDS: DOXYCYCLINE 100 MG in Normal Saline 100 ML IVPB (08:55)
[2024-02-11] MEDS: PIPERACILLIN/TAZO 4.5 GM in Normal Saline 100 ML IVPB (08:55)
[2024-02-11] MEDS: Normal Saline 1,000 ML 1000 ML IV (08:57)
[2024-02-11] MEDS: ACETAMINOPHEN 1,000 MG/100 ML BAG 400 MG IVPB (09:11)
[2024-02-11 09:22] LABS: COVID-19 PCR Negative (Negative); Influenza A PCR Negative (Negative); Influenza B PCR Negative (Negative); RSV PCR Negative (Negative)
[2024-02-11 09:25] LABS: Source Nasopharynx
[2024-02-11] MEDS: VANCOMYCIN/WATER (PEG) 1.75 GM/350 ML BAG IVPB (09:26)
[2024-02-11 09:42] LABS: Troponin I 146 ng/L (<or=76)
[2024-02-11 10:16] LABS: Troponin I 164 ng/L (<or=76)
[2024-02-11 12:19] LABS: *AMPHETAMINES SCREEN URINE Negative (Negative); *BARBITURATES SCREEN URINE Negative (Negative); *BENZODIAZEPINES SCREEN URINE Negative (Negative); Cannabinoids THC Negative (Negative); Cocaine Screen,Urine Negative (Negative); METHADONE URINE SCREEN Positive (Negative); OPIATES URINE SCREEN Negative (Negative)
[2024-02-11 12:21] LABS: Tricyclic Antidepressants Negative (Negative)
--- NOTE | 2024-02-13 11:13 | NUR.NOTE ---
Preliminary blood culture results on all four bottles are MRSA positive. Dr. Marina notified. Results faxed to [address] @ fax [phone]. Nursing Note:
== END 2024-02-11 10:01 | disposition short-term general hospital (02) ==
PROVIDERS: Emergency Provider Student in an Organized Health Care Education/Training Program; PCP Nurse Practitioner Family
DX: R78.81 Bacteremia (principal); E87.1 Hypo-osmolality and hyponatremia; R65.20 Severe sepsis without septic shock; R91.8 Other nonspecific abnormal finding of lung field
CPT/HCPCS: 36415; 71275; 80048; 80053; 80307; 84145; 85652; 87040; 87077; 87637; 93005; 93308; 96365; 96368; 99291; 99292; 73080; 81003; 81015; 83605; 83880; 84443; 84484; 85025; 85610; 85730; 86140; 87186; 93010; J0131; J2543; J3372; J3490

== ENCOUNTER 2024-05-06 16:16 | Outpatient (CLI) | payer MEDICAID, SELFPAY ==
[2024-05-06 11:01] LABS: Abs Immature Grans 0.01 10^3/uL (0.0-0.06); Absolute Basophil Count 0.04 10^3/uL (0.0-0.2); Absolute Eosinophil Count 0.28 10^3/uL (0.0-0.7); Absolute Lymphocyte Count 2.64 10^3/uL (1.2-3.4); Absolute Monocyte Count 0.56 10^3/uL (0.1-0.8); Absolute Neutrophil Count 4.08 10^3/uL (1.2-6.7); Basophils % 0.5 %; Eosinophils % 3.7 %; HCT 36.8 % (40.0-50.0); HGB 11.3 g/dL (13.5-17.5); Immature Grans % 0.1 %; Lymphocytes % 34.7 %; MCH 27.4 pg (27.0-33.0); MCHC 30.7 % (32.0-36.0); MCV 89 fL (80-95); MPV 9.9 fL (8.0-11.0); Monocytes % 7.4 %; Neutrophils % 53.6 %; Platelet Count 236 10^3/uL (130-400); RBC 4.13 10^6/uL (4.36-5.78); RDW 16.7 % (11.8-14.1); RDW-SD 54.5 fL; WBC 7.61 10^3/uL (4.4-10.8)
[2024-05-06 11:19] LABS: ALT 35 U/L (16-63); AST 31 U/L (15-37); Albumin 3.4 g/dL (3.4-5.0); Alkaline Phosphatase 80 U/L (46-116); Anion Gap 8.7 mmol/L (3-11); BUN 18 mg/dL (7-18); Bilirubin, Total 0.3 mg/dL (0.2-1.0); C-Reactive Protein < 0.50 mg/dL (<or=0.5); CO2 28.3 mmol/L (21.0-32.0); CREATININE 1.2 mg/dL (0.70-1.30); Calcium 9.7 mg/dL (8.5-10.1); Chloride 105 mmol/L (98-107); Estimated GFR 83.43 (mL/min/1.73m2); Glucose 102 mg/dL (74-106); Potassium 4.4 mmol/L (3.5-5.1); Sodium 142 mmol/L (136-145); Total Protein 7.3 g/dL (6.4-8.2)
== END 2024-05-06 16:17 | disposition home or self-care (01) ==
LOC: LBO 16:17
PROVIDERS: PCP Nurse Practitioner Family; Visit Provider Internal Medicine Infectious Disease
DX: I07.9 Rheumatic tricuspid valve disease, unspecified (principal); A49.02 Methicillin resistant Staphylococcus aureus infection, unspecified site
CPT/HCPCS: 36415; 80053; 85025; 86140

== ENCOUNTER 2024-11-05 15:37 | Outpatient (CLI) | payer MEDICAID, SELFPAY ==
--- NOTE | 2024-11-05 15:30 | DI.RAD_ITS ---
Exam(s) XR CHEST 2V PA LATERAL EXAM: XR CHEST 2V PA LATERAL CLINICAL HISTORY: R05.9 Cough, eval pathology TECHNIQUE: 2D digital imaging was performed. Two views. COMPARISON: CT CT CHEST PE CTA from 02/11/2024 FINDINGS: HEART: Normal size. Aorta: Not dilated. PULMONARY VASCULATURE: Normal. MEDIASTINUM: Unremarkable. LUNGS: There are emphysematous changes greater at the lung bases. Previously noted infiltrates have cleared. PLEURAL SPACE: No pleural effusion or pneumothorax. Previously noted effusions have resolved. BONE:Unremarkable for age. SOFT TISSUES: Unremarkable. IMPRESSION: Emphysematous changes. No acute abnormality. DATA REPOSITORY: RADIATION DOSE DELIVERED:
== END 2024-11-05 15:57 ==
PROVIDERS: PCP Nurse Practitioner Family; Visit Provider Nurse Practitioner Family
DX: R05.9 Cough, unspecified (principal); R91.8 Other nonspecific abnormal finding of lung field
CPT/HCPCS: 71046

== ENCOUNTER 2024-11-09 08:58 | Emergency (ER) | payer MEDICAID, SELFPAY ==
[2024-11-09] VITALS (10 sets, daily range): BP systolic 132–148; BP diastolic 80–87; PULSE 75–93; RESP 20; TEMP 36.8–37; O2SAT 96
--- NOTE | 2024-11-09 09:15 | RT.EKG_ITS ---
APPROVED REPORT Exam: Resting ECG Reason for Exam: chest pain Patient Location: E HR:74 bpm ECG Measurements Heart Rate 74 AXIS OH 147 P 74 QRSd 91 QRS 60 QT 357 T 30 QTc 395 Conclusion Sinus rhythm...normal P axis, V-rate 60- 99
--- NOTE | 2024-11-09 09:15 | DI.RAD_ITS ---
Exam(s) XR CHEST 2V PA LATERAL EXAM: XR CHEST 2V PA LATERAL CLINICAL HISTORY: cough. TECHNIQUE: 2D digital imaging was performed. COMPARISON: CT CT CHEST PE CTA from 02/11/2024 CR XR CHEST 2V PA LATERAL from 11/05/2024 FINDINGS: 2 views: Heart size is normal. The mediastinum is not widened. There is some scarring in the lateral pleural base is and lateral left lung base also exhibits some bullae. No obvious fluid level. No overlying chin. Few small granulomas are noted in the right upper lobe. The multiple bilateral cavitated lesions and pleural effusions which were seen on chest CT scan of February 2024 are not seen on today's chest x-ray. IMPRESSION: Chronic lateral left lung base findings, unchanged from 11/05/2024. No acute findings. For significant past history please see CT scan report of the chest from 02/11/2024. DATA REPOSITORY: RADIATION DOSE DELIVERED:
--- NOTE | 2024-11-09 09:19 | W.ED.GENAD ---
Discharge Plan Disposition Patient Disposition: Home Condition: Stable Discharge Details Clinical Impression: Cough, Pain, dental, Dyspnea Primary Care Provider: ION [facility] ED Provider: Benjie Marina Home Meds and New Rx's Prescriptions: New prednisone 20 mg tablet 60 mg PO DAILY 4 Days Qty: 12 0RF amoxicillin-pot clavulanate 875-125 mg tablet 1 tab PO BID Qty: 14 0RF Continued naloxone [Narcan] 4 mg/actuation spray,non-aerosol 4 mg NS DIRECTED Qty: 2 0RF Rx Instructions: One spray (4mg) intranasally into one nostril. Use a new nasal spray for subsequent dose in alternate nostril if needed. May repeat once after initial dose in 2-3 minutes. lisdexamfetamine [Vyvanse] 30 mg capsule 30 mg PO DAILY albuterol sulfate 90 mcg/actuation HFA aerosol inhaler 2 puff inhalation Q6H PRN (Reason: shortness of breath or wheezing) Qty: 8.5 0RF methadone 10 mg/mL concentrate 80 mg PO DAILY trazodone 50 mg tablet 25 mg PO HS PRN Patient Comments: TAKE 1/2 TABLET BY MOUTH EVERY NIGHT NEEDED FOR SLEEP ibuprofen [Advil] 200 mg tablet 600 mg PO Q6H PRN Discharge Instructions Additional Instructions: Continue to use the albuterol inhaler. If not improving this week follow-up with your primary care provider or express care. If you feel significant more ill or short of breath return to the emergency department for reevaluation. HPI General Date/Time Provider Initiated Documentation: 11/09/24 09:05. Limitations to Documentation: no limitations. Information obtained by: patient. History of Present Illness 29 year old M presents to the emergency department with the chief complaint of cough, dyspnea, described as moderate, Quality is described as aching, Patient started experiencing this day(s) (7) and it has been constant. No relieving factors improve symptom(s), No exacerbating factors reported . Patient notes denies fever/chills. Patient did receive the following treatments prior to arrival, none Related Data Home Medications ?Medication ?Instructions ?Recorded ?Confirmed naloxone 4 mg/actuation nasal 4 mg NS DIRECTED #2 sprays 02/13/19 11/09/24 spray (Narcan) albuterol sulfate 90 mcg/actuation 2 puff inhalation Q6H PRN 11/05/24 11/09/24 aerosol inhaler shortness of breath or wheezing #8.5 grams lisdexamfetamine 30 mg capsule 30 mg PO DAILY 11/05/24 11/09/24 (Vyvanse) methadone 10 mg/mL oral concentrate 80 mg PO DAILY 11/05/24 11/09/24 amoxicillin 875 mg-potassium 1 tab PO BID #14 tabs 11/09/24 clavulanate 125 mg tablet ibuprofen 200 mg tablet (Advil) 600 mg PO Q6H PRN 11/09/24 11/09/24 prednisone 20 mg tablet 60 mg (3 x 20 mg) PO DAILY 4 days 11/09/24 #12 tabs trazodone 50 mg tablet 25 mg PO HS PRN 11/09/24 11/09/24 Previous Rx's ?Medication ?Instructions ?Recorded naloxone 4 mg/actuation nasal 4 mg NS DIRECTED #2 sprays 02/13/19 spray (Narcan) albuterol sulfate 90 mcg/actuation 2 puff inhalation Q6H PRN 11/05/24 aerosol inhaler shortness of breath or wheezing #8.5 grams amoxicillin 875 mg-potassium 1 tab PO BID #14 tabs 11/09/24 clavulanate 125 mg tablet prednisone 20 mg tablet 60 mg (3 x 20 mg) PO DAILY 4 days 11/09/24 #12 tabs Allergies Allergy/AdvReac Type Severity Reaction Status Date / Time No Known Allergies Allergy Verified 11/09/24 09:06 General Stated Complaint: RespSymp MARTÍN: 3 Review of Systems All systems reviewed & are unremarkable except as noted in HPI and below Constitutional Constitutional: Denies chills, Denies fever(s) and Denies weakness Cardiovascular Cardiovascular: Denies chest pain and Reports dyspnea Respiratory Respiratory: Reports cough and Reports dyspnea Gastrointestinal Gastrointestinal: Denies abdominal pain, Denies nausea and Denies vomiting Neurologic Neurologic: Denies weakness Exam Const General: no acute distress Orientation: alert [facility] Head: normal to inspection Ears: external ears normal General nose exam: external nose normal Mouth: moist mucous membranes Eyes General: appearance normal, both eyes and all related structures Neck Neck: normal visual inspection Resp Effort & Inspection: normal respiratory effort and able to speak in complete sentences Auscultation: wheezes Cardio Jugular venous pressure: no JVD Rate: regular rate Heart Sounds: no murmurs Skin General skin exam: no rashes or lesions noted Neuro General: patient alert and patient oriented x3 Extrem General: normal to inspection Psych Mental Status: mental status grossly normal Course Vital Signs Vital signs: Vital Signs Temperature 36.8 C 11/09/24 09:04 Pulse 93 H 11/09/24 09:04 Respiratory Rate 20 11/09/24 09:04 Blood Pressure 148/87 H 11/09/24 09:04 Pulse Oximetry 96 11/09/24 09:04 Temperature 36.8 C 11/09/24 09:04 Temperature Source Oral 11/09/24 09:04 Pulse 93 H 11/09/24 09:04 Respiratory Rate 20 11/09/24 09:04 Blood Pressure 148/87 H 11/09/24 09:04 Blood Pressure Position Sitting 11/09/24 09:04 Pulse Oximetry 96 11/09/24 09:04 Oxygen Delivery Method Room Air 11/09/24 09:04 Oxygen Flow Rate 0 11/09/24 09:04 Pain Level 7 11/09/24 09:04 Medical Decision Making 29-year-old male with a history of smoking and emphysema, who 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 He comes in today with 1 week of productive cough. He had a chest x-ray done which showed resolved infiltrates from the CT he had in February. He denies any fevers or travel. He is speaking full sentences no distress. He has apical wheezing bilaterally and rhonchi at the bases bilaterally. No JVD or leg swelling, no murmurs. He also notes left lower molar pain and has severely eroded teeth with tenderness in the anterior left lower molar without visible abscess. He has no submandibular swelling or pain over the hyoid or restricted neck movements. He has a normal posterior pharynx with a midline uvula. I suspect COPD exacerbation, will check a CBC, CMP, EKG and troponins and a chest x-ray. He has no tachycardia or hypoxia or evidence of DVT so I doubt PE. Labs without emergent findings and x-ray on my read shows no acute findings. Virtual radiology turnaround time is currently over 3 hours and he does not want to wait for this read which I feel is reasonable. I will start him on Augmentin and also prescribe a short course of prednisone. He will follow-up with his PCP if not improving and return precautions Differential Diagnosis Differential Diagnosis: COPD, pneumonia Lab Data Lab results reviewed: Yes I reviewed the patient's lab results. ECG Data Attestation: I personally reviewed and interpreted this ECG (s) as follows: Prior ECG tracings: available for review Interpretation: sinus rate of 74 no stemi PFSH All Active Problems Dyspnea (Acute) Pain, dental (Acute) Cough (Acute) Seizure (Acute) Restless legs (Acute) Adjustment disorder with anxiety (Acute) Opioid dependence (Acute) Recurrent major depression (Acute) Disorder of hematopoietic structure (Acute) Heroin abuse (Chronic) As above. Reflecting on relapse he identifies the need to not be isolated and not let himself get bored. That is when he is tempted to use. He plans to move in to his own apartment Smoker (Acute 08/02/17) Medical History Depression with anxiety (05/07/15) Taking Wellbutrin 300mg QD. Significant help with depression, moderate help with anxiety. Shahriar GODINEZ. Has graduated from intense 6 week outpatient program. Continues to see drug and alcohol counselor x1 each week. Working 40 hours Sun- at a [employer], 30+ hours at [employer] Sunday-Sunday. Admits to 1 relapse during his 6 week program. Congratulated in completing the program. Encouraged to continue with therapy and be proactive in his continued recovery. F/U 2 weeks. Hepatitis C virus infection (~02/2018) ADHD (attention deficit hyperactivity disorder) (09/21/15) Surgical History H/O elbow surgery Family History Mother Depression Grandfather Depression Heart disease Grandfather No problems noted. Grandmother Hyperlipidemia Grandmother Personal history of malignant neoplasm PANCREATIC Social History Smoking/Tobacco Use Status: Current every day Tobacco Type: cigarettes Smoking risk assessment performed?: Yes Alcohol Intake: current Alcohol Intake frequency: a few times a month Drug use: Daily Substance use type: marijuana and other Details: 2 months since last IV drug use. Still uses marijuana daily. 70mg daily methadone at [facility] Caregiver/Support person: Yes (states mom (John) his strongest support person) Household members: family Housing: apartment Current gender identity: male What type of physical activity do you participate in: none Seatbelt use: always Do you feel safe at home: Yes Do you feel safe in your relationship?: Yes
[2024-11-09 09:53] LABS: Glucose Negative (Negative)
[2024-11-09 10:04] LABS: BE (Venous) 0 mmol/L (-2-3); HCO3 (Venous) 26 mmol/L (23-28); O2 Sat (Venous) 68 %; TCO2 (Venous) 24 mmol/L (24-29); pCO2 (Venous) 48 mmHg (41-51); pO2 (Venous) 37 mmHg
[2024-11-09 10:05] LABS: Abs Immature Grans 0.02 10^3/uL (0.0-0.06); HCT 38.4 % (40.0-50.0); HGB 12.9 g/dL (13.5-17.5); Immature Grans % 0.2 %; MCH 30.2 pg (27.0-33.0); MCHC 33.6 % (32.0-36.0); MCV 90 fL (80-95); MPV 10.3 fL (8.0-11.0); Platelet Count 269 10^3/uL (130-400); RBC 4.27 10^6/uL (4.36-5.78); RDW 12.8 % (11.8-14.1); RDW-SD 42.0 fL; WBC 9.62 10^3/uL (4.4-10.8)
[2024-11-09 10:10] LABS: C & S Indicated? No
[2024-11-09] MEDS: methylPREDNISolone SUCC 125 MG VIAL IVP (10:10)
[2024-11-09] MEDS: Albuterol/Ipratropium 3 ML UPD VIAL UPD (10:10)
[2024-11-09 10:29] LABS: COVID-19 PCR Negative (Negative); RSV PCR Negative (Negative)
[2024-11-09 10:31] LABS: ALT 24 U/L (16-63); AST 22 U/L (15-37); Albumin 4.0 g/dL (3.4-5.0); Alkaline Phosphatase 63 U/L (46-116); Anion Gap 7.6 mmol/L (3-11); BUN 13 mg/dL (7-18); Bilirubin, Total 0.4 mg/dL (0.2-1.0); CO2 28.4 mmol/L (21.0-32.0); Calcium 9.1 mg/dL (8.5-10.1); Chloride 105 mmol/L (98-107); Estimated GFR 117.10 (mL/min/1.73m2); Glucose 110 mg/dL (74-106); Magnesium 1.8 mg/dL (1.8-2.4); NT-proBNP 244 pg/mL (<300); Potassium 4.0 mmol/L (3.5-5.1); Sodium 141 mmol/L (136-145); Total Protein 7.7 g/dL (6.4-8.2); Troponin I 5 ng/L (<or=76)
[2024-11-09 10:34] LABS: Procalcitonin 0.16 ng/mL
--- NOTE | 2024-11-09 11:35 | DI.VRAD_ITS ---
PROCEDURE INFORMATION: Exam: XR Chest Exam date and time: 11/09/2024 9:29 AM Age: 29 years old Clinical indication: Cough TECHNIQUE: Imaging protocol: Radiologic exam of the chest. Views: 2 views. COMPARISON: CR XR CHEST 2V PA LATERAL 11/05/2024 3:51 PM FINDINGS: Lungs: Right lower lobe atelectasis. No consolidation. Pleural spaces: Unremarkable. No pleural effusion. No pneumothorax. Heart/Mediastinum: Unremarkable. No cardiomegaly. Bones/joints: Unremarkable. IMPRESSION: No acute findings. Dictated and Authenticated by: Govind Hernandes MD. Orderin Laina Waldrop MD
[2024-11-09] MEDS: Amoxicillin 875/Clav. 125 TAB PO (11:38)
== END 2024-11-09 11:39 | disposition home or self-care (01) ==
PROVIDERS: Emergency Provider Emergency Medicine; PCP Nurse Practitioner Family
DX: R06.00 Dyspnea, unspecified (principal); R05.9 Cough, unspecified; R68.84 Jaw pain; K08.89 Other specified disorders of teeth and supporting structures; Z72.0 Tobacco use
CPT/HCPCS: 99284 ×2; 96374; 94640; 36415; 80053; 82805; 84145; 87637; 93005; 71046; 81003; 81015; 83735; 83880; 84484; 85025; 93010; J2919; J7620